=== PATIENT | male | born 1960 | race African-American/Black ===

== ENCOUNTER 2018-08-22 14:47 | Emergency (ER) | payer MEDICAID, OTHER ==
[~2018-08-22] VITALS: Ht 172.7 cm; Wt 55.3 kg
[~2018-08-22 14:47] MED LIST: ACET-73 PO; CYCL5TAB PO; FAMO20TA8 PO; FLUR30CA13 PO; GABA600T PO; HYDR25TA4 PO; PREG50CA PO; SERT50TA PO; TOPI25TA PO; [UNRECOGNIZED DRUG - OTHER] PO
--- NOTE | 2018-08-22 14:55 | NUR ---
PT SELF PRESENTS TO ER BED 12 C/O HAVING SUICIDAL THOUGHTS, PLAN ON RUNNING TO TRAFFIC STATES "I WAS RECENTLY ." THATS WHY HE IS SUICIDAL. DENIES ANY OTHER COMPLAINT. AWAITING MD MURRAY.
--- NOTE | 2018-08-22 15:13 | NUR ---
ALESSANDRA BELTRAN AT BEDSIDE FOR EVAL.
[2018-08-22 15:31] LABS: BASOPHILS # (AUTO) 0.2 /CMM (0.0-0.2); BASOPHILS % (AUTO) 2.7 % (0.0-2.0); EOSINOPHILS % (AUTO) 1.6 % (0.0-6.0); HEMATOCRIT 41 % (39-51); HEMOGLOBIN 14.2 g/dL (13.5-17.5); LYMPHOCYTES # (AUTO) 1.1 /CMM (0.8-4.8); LYMPHOCYTES % (AUTO) 16.7 % (20.0-44.0); MEAN CORPUSCULAR HGB CONC 35 g/dl (31.0-36.0); MEAN CORPUSCULAR VOLUME 98 fL (80-96); MONOCYTES # (AUTO) 0.4 /CMM (0.1-1.30); MONOCYTES % (AUTO) 5.9 % (2.0-12.0); NEUTROPHILS # (AUTO) 4.9 /CMM (1.8-8.9); NEUTROPHILS % (AUTO) 73.1 % (43.0-81.0); PLATELET COUNT (AUTO) 337 /CMM (150-450); RDW COEFFICIENT OF VARIATION 11.9 (11.5-15.0); RED BLOOD CELL COUNT(AUTO) 4.17 MIL/uL (4.5-6.0); WHITE BLOOD COUNT (AUTO) 6.7 K/uL (4.3-11.0)
[2018-08-22 15:35] LABS: CALCIUM, SERUM 9.3 mg/dL (8.5-10.1); CARBON DIOXIDE 31 mmol/L (21-32); CHLORIDE 106 mmol/L (98-107); GLUCOSE 98 mg/dL (74-106); POTASSIUM 4.5 mmol/L (3.5-5.1); SODIUM SERUM 142 mmol/L (136-145); UREA NITROGEN, BLOOD 15 mg/dL (7-18)
[2018-08-22 15:37] LABS: APPEARANCE,URINE Clear (CLEAR); BILIRUBIN,URINE Negative (NEGATIVE); BLOOD, URINE Trace-intact Ery/uL (NEGATIVE); COLOR,URINE Yellow (YELLOW); KETONES,URINE Negative (NEGATIVE); LEUKOCYTE ESTERASE ,URINE Negative (NEGATIVE); NITRITE, URINE Negative (NEGATIVE); PROTEIN,URINE Negative (NEGATIVE); UGLUCOSE Negative (NEGATIVE)
[2018-08-22 15:41] LABS: ACETAMINOPHEN 0 ug/ml (10-30); ALANINE AMINOTRANSFERASE 38 U/L (12-78); ALBUMIN 3.5 g/dL (3.4-5.0); ALCOHOL, BLOOD < 3 mg/dL (0-0); ALKALINE PHOSPHATASE 67 U/L (46-116); ASPARTATE AMINOTRANSFERASE 22 U/L (15-37); BILIRUBIN,DIRECT 0.1 mg/dL (0.0-0.2); BILIRUBIN,TOTAL 0.3 mg/dL (0.2-1.0); SALICYLATE 0.3 mg/dL (2.8-20.0); TOTAL PROTEIN, SERUM 7.2 g/dL (6.4-8.2)
[2018-08-22 15:44] LABS: BACTERIA,URINE None seen /HPF (None Seen); SQUAMOUS EPITHELIAL CELL,UR Few /HPF (None Seen); URINE AMORPHOUS PHOSPHATES Few /HPF (None Seen); WBC,URINE 0-2 /HPF (0-3)
--- NOTE | 2018-08-22 18:40 | NUR ---
JUN RN AT BEDSIDE FOR PSYCH EVAL.
--- NOTE | 2018-08-22 19:40 | NUR ---
WATCHING TV AT THIS TIME. DENIES ANY DISTRESS. INFORMED ABOUT PENDING ACCEPTANCE AT [facility].
--- NOTE | 2018-08-22 20:22 | NUR ---
REPORT GIVEN TO SLACKMAN AT [facility]. PT AWAITING TRANSPORT. NO S/S OF DISTRESS NOTED. RESP EVEN AND UNLABORED. DENIES ANY NEW OR WORSENING SX'S AT THIS TIME.
[2018-08-22 20:25] VITALS: BP 118/78
== END 2018-08-22 20:27 ==
LOC: ER 14:53
DX: R45.851 Suicidal ideations (principal); F31.9 Bipolar disorder, unspecified; I10 Essential (primary) hypertension; Z60.2 Problems related to living alone; F17.200 Nicotine dependence, unspecified, uncomplicated; Z88.8 Allergy status to other drugs, medicaments and biological substances
CPT/HCPCS: 36415; 80048; 80076; 80305; 80329; 81001; 85025; 99285; A4606; G0480 ×2; Z7610; 81000-TC

== ENCOUNTER 2018-10-18 16:59 | Emergency (ER) | payer MEDICAID ==
[~2018-10-18] VITALS: Ht 172.7 cm; Wt 68.0 kg
--- NOTE | 2018-10-18 16:59 | NUR ---
BIB SELF WITH PLANS TO JUMP IN FRONT OF TRAFFIC / MOVING CAR. TO ER BED 16, HOOKED TO MONITOR, AWAITING MD MURRAY.
--- NOTE | 2018-10-18 17:30 | NUR ---
DEVIN WILSON AT BEDSIDE
[2018-10-18 17:54] LABS: BASOPHILS # (AUTO) 0.1 /CMM (0.0-0.2); BASOPHILS % (AUTO) 0.6 % (0.0-2.0); EOSINOPHILS % (AUTO) 0.9 % (0.0-6.0); HEMATOCRIT 41 % (39-51); HEMOGLOBIN 13.7 g/dL (13.5-17.5); LYMPHOCYTES # (AUTO) 3.7 /CMM (0.8-4.8); MEAN CORPUSCULAR HGB CONC 34 g/dl (31.0-36.0); MEAN CORPUSCULAR VOLUME 100 fL (80-96); MONOCYTES # (AUTO) 0.8 /CMM (0.1-1.30); MONOCYTES % (AUTO) 6.5 % (2.0-12.0); NEUTROPHILS # (AUTO) 7.6 /CMM (1.8-8.9); PLATELET COUNT (AUTO) 268 /CMM (150-450); RED BLOOD CELL COUNT(AUTO) 4.06 MIL/uL (4.5-6.0); WHITE BLOOD COUNT (AUTO) 12.2 K/uL (4.3-11.0)
[2018-10-18 18:08] LABS: CARBON DIOXIDE 31 mmol/L (21-32); CHLORIDE 100 mmol/L (98-107); CREATININE 1.2 mg/dL (0.6-1.3); GLUCOSE 147 mg/dL (74-106); POTASSIUM 3.4 mmol/L (3.5-5.1); SODIUM SERUM 138 mmol/L (136-145); UREA NITROGEN, BLOOD 29 mg/dL (7-18)
[2018-10-18 18:12] LABS: ALANINE AMINOTRANSFERASE 39 U/L (12-78); ALBUMIN 3.5 g/dL (3.4-5.0); ALKALINE PHOSPHATASE 62 U/L (46-116); ASPARTATE AMINOTRANSFERASE 19 U/L (15-37); BILIRUBIN,DIRECT 0.1 mg/dL (0.0-0.2); BILIRUBIN,TOTAL 0.4 mg/dL (0.2-1.0); TOTAL PROTEIN, SERUM 7.3 g/dL (6.4-8.2)
[2018-10-18 18:13] LABS: ACETAMINOPHEN < 2 ug/ml (10-30); ALCOHOL, BLOOD < 3 mg/dL (0-0); SALICYLATE 2.1 mg/dL (2.8-20.0)
[2018-10-18 18:16] LABS: CALCIUM, SERUM 8.9 mg/dL (8.5-10.1)
--- NOTE | 2018-10-18 18:22 | NUR ---
URINE SAMPLE SENT TO LAB
[2018-10-18 18:37] LABS: APPEARANCE,URINE Clear (CLEAR); BILIRUBIN,URINE Negative (NEGATIVE); BLOOD, URINE Small Ery/uL (NEGATIVE); COLOR,URINE Yellow (YELLOW); KETONES,URINE Negative (NEGATIVE); LEUKOCYTE ESTERASE ,URINE Small (NEGATIVE); NITRITE, URINE Negative (NEGATIVE); PH,URINE 5.5 (5.0-8.0); PROTEIN,URINE Negative (NEGATIVE); UGLUCOSE Negative (NEGATIVE); UROBILINOGEN,URINE 0.2 EU/dL (0.2)
[2018-10-18 18:58] LABS: BACTERIA,URINE 1+ /HPF (None Seen); SQUAMOUS EPITHELIAL CELL,UR Few /HPF (None Seen)
--- NOTE | 2018-10-18 19:13 | NUR ---
CALLED [employer] COMPONENT ASSEMBLER.
[2018-10-18] MEDS ORDERED: CEPHALEXIN MONOHYDRATE 500 MG CAPSULE PO ONE ×2 (19:28→19:30)
--- NOTE | 2018-10-18 19:30 | NUR ---
REPORT GIVEN TO FERNY RN FOR LB
--- NOTE | 2018-10-18 19:33 | NUR ---
REC'D ENDORSEMENT FROM [facility] JEFFERY FOR LB
--- NOTE | 2018-10-18 19:50 | NUR ---
CHECKED IN ON PT, STILL +SI. PROVIDED BLANKET FOR COMFORT. NO OTHER COMPLAINTS AT THIS TIME.
--- NOTE | 2018-10-18 19:57 | NUR ---
PROVIDED SANDWICH AND JUICE. OK ISHMAEL PA
--- NOTE | 2018-10-18 21:10 | NUR ---
ASSISTED PT TO USE TELEVISION. HE IS COMFORTABLE AND VSS
--- NOTE | 2018-10-18 22:47 | NUR ---
REPORT GIVEN TO RODRIGUE AT [facility]. TRANSPORT ETA [phone], TRIP #[id number]
--- NOTE | 2018-10-18 22:57 | NUR ---
PT RESTING COMFORTABLY WATCHING TV AND PLAYING ON PHONE. NO COMPLAINTS AT THIS TIME
--- NOTE | 2018-10-18 23:58 | NUR ---
REPORT GIVEN TO ABY ECHEVARRIA, LELA FOR TRANSPORT.
[2018-10-19 00:51] VITALS: BP 112/84
== END 2018-10-18 23:58 ==
LOC: ER 17:02
DX: R45.851 Suicidal ideations (principal); N39.0 Urinary tract infection, site not specified; F31.9 Bipolar disorder, unspecified; M79.7 Fibromyalgia; F17.200 Nicotine dependence, unspecified, uncomplicated; Z60.2 Problems related to living alone; Z88.8 Allergy status to other drugs, medicaments and biological substances
CPT/HCPCS: 36415; 80048; 80076; 80305; 80329; 81001; 85025; 87086; 99285; A4606; G0480 ×2; Z7610; 81000-TC

== ENCOUNTER 2018-10-29 00:09 | Emergency (ER) | payer MEDICAID ==
[~2018-10-29] VITALS: Ht 172.7 cm; Wt 86.2 kg
[2018-10-29 00:52] LABS: BASOPHILS # (AUTO) 0.1 /CMM (0.0-0.2); BASOPHILS % (AUTO) 1.2 % (0.0-2.0); EOSINOPHILS % (AUTO) 1.2 % (0.0-6.0); HEMATOCRIT 41 % (39-51); HEMOGLOBIN 14.1 g/dL (13.5-17.5); LYMPHOCYTES # (AUTO) 3.1 /CMM (0.8-4.8); LYMPHOCYTES % (AUTO) 31.4 % (20.0-44.0); MEAN CORPUSCULAR HGB CONC 34 g/dl (31.0-36.0); MEAN CORPUSCULAR VOLUME 99 fL (80-96); MONOCYTES # (AUTO) 0.9 /CMM (0.1-1.30); MONOCYTES % (AUTO) 8.7 % (2.0-12.0); NEUTROPHILS # (AUTO) 5.6 /CMM (1.8-8.9); NEUTROPHILS % (AUTO) 57.5 % (43.0-81.0); PLATELET COUNT (AUTO) 239 /CMM (150-450); RED BLOOD CELL COUNT(AUTO) 4.17 MIL/uL (4.5-6.0); WHITE BLOOD COUNT (AUTO) 9.8 K/uL (4.3-11.0)
--- NOTE | 2018-10-29 01:00 | NUR ---
PT BIBSELF FOR SI. PT DENIES HI, AUDITORY/VISUAL HALLUCINATIONS. PT IS AAOX4. RESPIRATIONS EVEN AND UNLABORED. VITAL SIGNS STABLE. WILL CONTINUE TO MONITOR
[2018-10-29 01:01] LABS: CARBON DIOXIDE 28 mmol/L (21-32); CHLORIDE 109 mmol/L (98-107); CREATININE 1.2 mg/dL (0.6-1.3); GLUCOSE 96 mg/dL (74-106); POTASSIUM 3.9 mmol/L (3.5-5.1); SODIUM SERUM 145 mmol/L (136-145); UREA NITROGEN, BLOOD 22 mg/dL (7-18)
[2018-10-29 01:14] LABS: ACETAMINOPHEN 0 ug/ml (10-30); ALANINE AMINOTRANSFERASE 31 U/L (12-78); ALBUMIN 4.2 g/dL (3.4-5.0); ALCOHOL, BLOOD < 3 mg/dL (0-0); ALKALINE PHOSPHATASE 64 U/L (46-116); ASPARTATE AMINOTRANSFERASE 16 U/L (15-37); BILIRUBIN,DIRECT 0.1 mg/dL (0.0-0.2); BILIRUBIN,TOTAL 0.6 mg/dL (0.2-1.0); SALICYLATE 2.5 mg/dL (2.8-20.0)
--- NOTE | 2018-10-29 02:30 | NUR ---
PT RESTING COMFORTABLY IN BED. VSS. WILL CONTINUE TO MONITOR
--- NOTE | 2018-10-29 02:36 | NUR ---
URINE COLLECTED AND SENT TO LAB
[2018-10-29 02:43] LABS: APPEARANCE,URINE CLEAR (CLEAR); BILIRUBIN,URINE NEGATIVE (NEGATIVE); BLOOD, URINE 1+ Ery/uL (NEGATIVE); COLOR,URINE YELLOW (YELLOW); KETONES,URINE TRACE (NEGATIVE); LEUKOCYTE ESTERASE ,URINE TRACE (NEGATIVE); NITRITE, URINE NEGATIVE (NEGATIVE); PH,URINE 6.5 (5.0-8.0); PROTEIN,URINE NEGATIVE (NEGATIVE); UGLUCOSE NEGATIVE (NEGATIVE); UROBILINOGEN,URINE 0.2 EU/dL (0.2)
[2018-10-29 02:53] LABS: WBC,URINE 0-2 /HPF (0-3)
[2018-10-29 02:54] LABS: BACTERIA,URINE Few /HPF (None Seen); MUCUS,URINE Few /LPF (None Seen); SQUAMOUS EPITHELIAL CELL,UR Few /HPF (None Seen); URINE AMORPHOUS URATE Few /HPF (None Seen)
--- NOTE | 2018-10-29 03:38 | NUR ---
accpeted to swetha LINDQUIST. NUMBER FOR REPORT: [phone] [phone]
--- NOTE | 2018-10-29 03:42 | NUR ---
GAVE REPORT TO [facility]EN [facility] FOR LB
--- NOTE | 2018-10-29 04:19 | NUR ---
PT RESTING COMFORTABLY IN BED. VSS. WILL CONTINUE TO MONITOR
[2018-10-29 05:01] VITALS: BP 132/84
--- NOTE | 2018-10-29 05:01 | NUR ---
GAVE REPORT TO BISHOP FOR LB
== END 2018-10-29 05:03 ==
LOC: ER 00:15
DX: R45.851 Suicidal ideations (principal); F32.9 Major depressive disorder, single episode, unspecified; M79.7 Fibromyalgia; M19.90 Unspecified osteoarthritis, unspecified site; G62.9 Polyneuropathy, unspecified; F17.200 Nicotine dependence, unspecified, uncomplicated; Z88.8 Allergy status to other drugs, medicaments and biological substances; Z60.2 Problems related to living alone; Z79.899 Other long term (current) drug therapy
CPT/HCPCS: 36415; 80048-TC; 80076-TC; 80305; 81000-TC; 85025-TC; A4606; G0480; Z7610

== ENCOUNTER 2018-11-05 13:24 | Emergency (ER) | END 2018-11-06 03:28 | DX: R07.89 Other chest pain (principal); R45.851 Suicidal ideations; F14.90 Cocaine use, unspecified, uncomplicated; G62.9 Polyneuropathy, unspecified; F31.9 Bipolar disorder, unspecified; M79.7 Fibromyalgia; F17.200 Nicotine dependence, unspecified, uncomplicated; F19.10 Other psychoactive substance abuse, uncomplicated; Z60.2 Problems related to living alone; Z88.9 Allergy status to unspecified drugs, medicaments and biological substances ==

== ENCOUNTER 2018-11-17 08:22 | Emergency (ER) | payer MEDICAID ==
[~2018-11-17] VITALS: Ht 172.7 cm; Wt 63.5 kg
--- NOTE | 2018-11-17 09:20 | NUR ---
PT IS HERE C/O THROAT PAIN X 1 DAY. DENIES CP, SOB, DIZZINESS, NAD NOTED @ THIS TIME.
[2018-11-17 09:43] LABS: BASOPHILS # (AUTO) 0.1 /CMM (0.0-0.2); HEMATOCRIT 44 % (39-51); LYMPHOCYTES # (AUTO) 1.4 /CMM (0.8-4.8); LYMPHOCYTES % (AUTO) 20.2 % (20.0-44.0); MEAN CORPUSCULAR HGB CONC 34 g/dl (31.0-36.0); MEAN CORPUSCULAR VOLUME 101 fL (80-96); MONOCYTES % (AUTO) 15.3 % (2.0-12.0); NEUTROPHILS # (AUTO) 4.1 /CMM (1.8-8.9); NEUTROPHILS % (AUTO) 61.5 % (43.0-81.0); PLATELET COUNT (AUTO) 198 /CMM (150-450); RED BLOOD CELL COUNT(AUTO) 4.38 MIL/uL (4.5-6.0); WHITE BLOOD COUNT (AUTO) 6.7 K/uL (4.3-11.0)
[2018-11-17 09:51] LABS: CALCIUM, SERUM 9.3 mg/dL (8.5-10.1); CARBON DIOXIDE 31 mmol/L (21-32); CHLORIDE 103 mmol/L (98-107); GLUCOSE 100 mg/dL (74-106); POTASSIUM 3.9 mmol/L (3.5-5.1); SODIUM SERUM 141 mmol/L (136-145); UREA NITROGEN, BLOOD 22 mg/dL (7-18)
[2018-11-17 09:57] LABS: ACETAMINOPHEN 0 ug/ml (10-30); ALANINE AMINOTRANSFERASE 34 U/L (12-78); ALBUMIN 4.1 g/dL (3.4-5.0); ALCOHOL, BLOOD < 3 mg/dL (0-0); ALKALINE PHOSPHATASE 65 U/L (46-116); ASPARTATE AMINOTRANSFERASE 20 U/L (15-37); BILIRUBIN,DIRECT 0.1 mg/dL (0.0-0.2); BILIRUBIN,TOTAL 0.6 mg/dL (0.2-1.0); SALICYLATE 2.6 mg/dL (2.8-20.0); TOTAL PROTEIN, SERUM 8.1 g/dL (6.4-8.2)
--- NOTE | 2018-11-17 11:00 | NUR ---
Patient is resting comfortably in bed with eyes closed. Easily aroused. VSS
--- NOTE | 2018-11-17 13:00 | NUR ---
Patient is resting comfortably in bed with eyes closed. Easily aroused. VSS
--- NOTE | 2018-11-17 14:05 | NUR ---
CALLED [employer] SONJA- LEFT VOICEMAIL
--- NOTE | 2018-11-17 14:54 | NUR ---
SONJA STATES ETA 30 MIN
--- NOTE | 2018-11-17 15:00 | NUR ---
Patient is resting comfortably in bed with eyes closed. Easily aroused. VSS
--- NOTE | 2018-11-17 17:30 | NUR ---
Patient is resting comfortably in bed with eyes closed. Easily aroused. VSS
[2018-11-17 19:30] LABS: APPEARANCE,URINE Clear (CLEAR); BILIRUBIN,URINE SMALL (NEGATIVE); BLOOD, URINE Small Ery/uL (NEGATIVE); COLOR,URINE Yellow (YELLOW); KETONES,URINE 15 (NEGATIVE); LEUKOCYTE ESTERASE ,URINE Trace (NEGATIVE); NITRITE, URINE Negative (NEGATIVE); PROTEIN,URINE 30 mg/dl (NEGATIVE); UGLUCOSE Negative (NEGATIVE)
[2018-11-17 19:36] LABS: BACTERIA,URINE Few /HPF (None Seen); SQUAMOUS EPITHELIAL CELL,UR Few /HPF (None Seen)
--- NOTE | 2018-11-17 19:42 | NUR ---
REPORT GIVEN TO WALTER CALDERA FOR CONT OF CARE.
--- NOTE | 2018-11-17 22:00 | NUR ---
Patient is resting comfortably in bed with eyes closed. Easily aroused. VSS
--- NOTE | 2018-11-18 00:41 | NUR ---
Patient is resting comfortably in bed with eyes closed. Easily aroused. VSS
--- NOTE | 2018-11-18 06:06 | NUR ---
Patient is resting comfortably in bed with eyes closed. Easily aroused. VSS. Awaiting placement from mental health facility.
--- NOTE | 2018-11-18 07:37 | NUR ---
PT STABLE RESPIRATION ENEN PENDING VOLUNTARY PLACEMENT AT [facility] PT HOMELESS WITH SI PLAN TO OVERDOSE ON [place]. [facility] CALLED NO BEDS AVAILABLE FACILITY WILL CALL [facility] 10PM IF BED VACANCY BECOMES AVALIABLE.
--- NOTE | 2018-11-18 08:03 | NUR ---
FOOD TRAY CALLED FROM [facility]
--- NOTE | 2018-11-18 08:20 | NUR ---
DENIS CALLED FOR EVAL/PLACEMENT
--- NOTE | 2018-11-18 09:56 | NUR ---
FAXED CHART TO [facility]
--- NOTE | 2018-11-18 11:03 | NUR ---
CALLING [facility] FOR BED AVAILABLITY
--- NOTE | 2018-11-18 11:07 | NUR ---
REFAXING CHART OVER
--- NOTE | 2018-11-18 12:07 | NUR ---
Social service consult was requested by ER for homelessness. Pt is a 58-year-old male who was admitted to [facility] by presenting self to ER with complaints of throat pain. Pt has been seen by Crisis Team and is awaiting possible placement at [facility]. SW spoke with Charge nurse Armando who stated that no beds are yet available. Pt has been deemed not suicidal however manipulative and looking for a place to stay per crisis team eval. Pt has also been provided with community resources by crisis team. Prior to discharge social work will provide homeless waiver depending on pts possible discharge location. SW is available, if needed.
--- NOTE | 2018-11-18 14:16 | NUR ---
PT GIVEN MEAL TRAY PENDING DISPOSITION
--- NOTE | 2018-11-18 14:30 | NUR ---
PT IS ACCEPTED AT [facility]. ACCEPTING MD NASH \BED NUMBER TO BE GIVEN DURING REPORT. [phone] SCHEDULE TRANSPORT BETWEEN [phone].
--- NOTE | 2018-11-18 14:39 | NUR ---
PT ACCEPTED AT [facility] RN REPORT GIVEN TO MARRY BAILEY [phone]
--- NOTE | 2018-11-18 14:41 | NUR ---
ROOM NUMBER [id number]
--- NOTE | 2018-11-18 14:43 | NUR ---
CALLED [facility] TRIP# [id number] ETA [phone]
--- NOTE | 2018-11-18 15:27 | NUR ---
TRANSPORT DELAYED TO 1700
[2018-11-18 17:00] VITALS: BP 110/74
--- NOTE | 2018-11-18 17:01 | NUR ---
PT DISCHARGED TO [facility] RIG# [id number] FOR TRANSPORT TO [facility] ALL BELONGINGS GIVEN PT VSSS.
== END 2018-11-18 17:06 ==
LOC: ER 08:24
DX: R45.851 Suicidal ideations (principal); G62.9 Polyneuropathy, unspecified; M79.7 Fibromyalgia; F17.200 Nicotine dependence, unspecified, uncomplicated; F14.10 Cocaine abuse, uncomplicated; F32.9 Major depressive disorder, single episode, unspecified; Z60.2 Problems related to living alone; Z59.0 Homelessness; Z88.4 Allergy status to anesthetic agent
CPT/HCPCS: 36415; 80048; 80076; 80305; 80329; 81001; 85025; 99285; A4606; G0480 ×2; Z7610; 81000-TC

== ENCOUNTER 2019-01-29 20:36 | Emergency (ER) | payer MEDICAID ==
[~2019-01-29] VITALS: Ht 172.7 cm; Wt 57.0 kg
[2019-01-29 22:04] VITALS: BP 152/89
--- NOTE | 2019-01-29 22:05 | NUR ---
PT BIB SELF FOR S/I, PLANS TO RUN INTO TRAFFIC; PT AAOX4, PT AMB WITH STEADY GAIT WALKED FROM TRIAGE TO BED, SI PRECAUTIONS STARTED FOR SAFETY, PT IN BED 13, PENDING MD MURRAY
[2019-01-29 22:23] LABS: BASOPHILS % (AUTO) 0.7 % (0.0-2.0); EOSINOPHILS % (AUTO) 2.8 % (0.0-6.0); HEMATOCRIT 44 % (39-51); HEMOGLOBIN 14.8 g/dL (13.5-17.5); LYMPHOCYTES # (AUTO) 1.5 /CMM (0.8-4.8); LYMPHOCYTES % (AUTO) 28.2 % (20.0-44.0); MEAN CORPUSCULAR HGB CONC 34 g/dl (31.0-36.0); MEAN CORPUSCULAR VOLUME 100 fL (80-96); MONOCYTES # (AUTO) 0.5 /CMM (0.1-1.30); MONOCYTES % (AUTO) 10.5 % (2.0-12.0); NEUTROPHILS % (AUTO) 57.8 % (43.0-81.0); PLATELET COUNT (AUTO) 246 /CMM (150-450); RED BLOOD CELL COUNT(AUTO) 4.45 MIL/uL (4.5-6.0); WHITE BLOOD COUNT (AUTO) 5.2 K/uL (4.3-11.0)
[2019-01-29 22:34] LABS: CALCIUM, SERUM 9.6 mg/dL (8.5-10.1); CARBON DIOXIDE 32 mmol/L (21-32); CHLORIDE 106 mmol/L (98-107); CREATININE 0.9 mg/dL (0.6-1.3); GLUCOSE 73 mg/dL (74-106); POTASSIUM 4.1 mmol/L (3.5-5.1); SODIUM SERUM 143 mmol/L (136-145); UREA NITROGEN, BLOOD 16 mg/dL (7-18)
[2019-01-29 22:41] LABS: ALANINE AMINOTRANSFERASE 33 U/L (12-78); ALCOHOL, BLOOD < 3 mg/dL (0-0); ALKALINE PHOSPHATASE 65 U/L (46-116); ASPARTATE AMINOTRANSFERASE 23 U/L (15-37); BILIRUBIN,DIRECT 0.1 mg/dL (0.0-0.2); BILIRUBIN,TOTAL 0.3 mg/dL (0.2-1.0); TOTAL PROTEIN, SERUM 7.5 g/dL (6.4-8.2)
[2019-01-29 22:42] LABS: ACETAMINOPHEN < 10 ug/ml (10-30); SALICYLATE 2.3 mg/dL (2.8-20.0)
[2019-01-29 23:33] LABS: APPEARANCE,URINE Slightly Cloudy (CLEAR); BILIRUBIN,URINE SMALL (NEGATIVE); BLOOD, URINE Moderate Ery/uL (NEGATIVE); COLOR,URINE Yellow (YELLOW); KETONES,URINE Trace (NEGATIVE); LEUKOCYTE ESTERASE ,URINE Small (NEGATIVE); NITRITE, URINE Negative (NEGATIVE); PROTEIN,URINE 30 mg/dl (NEGATIVE); UGLUCOSE Negative (NEGATIVE)
[2019-01-29 23:52] LABS: BACTERIA,URINE None seen /HPF (None Seen); SQUAMOUS EPITHELIAL CELL,UR Few /HPF (None Seen)
--- NOTE | 2019-01-30 00:25 | NUR ---
SEEN BY WILLIAM TENORIO; PENDING PLACEMENT. PT IS AMBULATORY WITH WALKER. PT IS CLEARED BY HEALTHCARE BUSINESS ANALYST, PT WILL WAIT IN THE WAITING ROOM, PT IS ON A VOLUNTARY BASIS FOR PSYCH PLACEMENT.
--- NOTE | 2019-01-30 06:32 | NUR ---
CALLED [facility]. UNABLE TO ACCEPT PATIENT.
--- NOTE | 2019-01-30 10:00 | NUR ---
HANDS PARTER Kenn here to see pt. Pt opted to leave by himself - eloped prior to signing discharge instructions. Appropriate clothed able to navigate community and resources. NO obvious distress
== END 2019-01-30 10:00 | disposition left against medical advice (07) ==
LOC: ER 20:39
DX: F31.9 Bipolar disorder, unspecified (principal); R45.851 Suicidal ideations; F20.9 Schizophrenia, unspecified; G62.9 Polyneuropathy, unspecified; M79.7 Fibromyalgia; F17.200 Nicotine dependence, unspecified, uncomplicated; F12.10 Cannabis abuse, uncomplicated; F29 Unspecified psychosis not due to a substance or known physiological condition; Z60.2 Problems related to living alone
CPT/HCPCS: 36415; 80048; 80076; 80305; 80307; 80329; 81001; 85025; 99285; G0480; 81000-TC

== ENCOUNTER 2019-03-28 20:24 | Emergency (ER) ==
[~2019-03-28] VITALS: Ht 172.7 cm; Wt 59.0 kg
--- NOTE | 2019-03-28 20:52 | NUR ---
+SI, +PLAN "RUN INTO TRAFFIC", -HI, -AUDITORY VOICES. PT IS AMBULATORY WITH WALKER. VSS AND RR EVEN AND UNLABORED ON RA. HE IS CALM AND COOPERATIVE. SUICIDE PRECAUTIONS IMPLEMENTED AND READY FOR EVAL.
[2019-03-28 21:00] LABS: BASOPHILS # (AUTO) 0.1 /CMM (0.0-0.2); EOSINOPHILS % (AUTO) 1.8 % (0.0-6.0); HEMATOCRIT 40 % (39-51); HEMOGLOBIN 13.4 g/dL (13.5-17.5); LYMPHOCYTES # (AUTO) 1.7 /CMM (0.8-4.8); MEAN CORPUSCULAR HGB CONC 34 g/dl (31.0-36.0); MEAN CORPUSCULAR VOLUME 101 fL (80-96); MONOCYTES # (AUTO) 0.8 /CMM (0.1-1.30); NEUTROPHILS # (AUTO) 4.6 /CMM (1.8-8.9); NEUTROPHILS % (AUTO) 63.2 % (43.0-81.0); PLATELET COUNT (AUTO) 236 /CMM (150-450); RED BLOOD CELL COUNT(AUTO) 3.95 MIL/uL (4.5-6.0); WHITE BLOOD COUNT (AUTO) 7.3 K/uL (4.3-11.0)
[2019-03-28 21:09] LABS: CALCIUM, SERUM 9.2 mg/dL (8.5-10.1); CARBON DIOXIDE 31 mmol/L (21-32); CHLORIDE 105 mmol/L (98-107); CREATININE 0.9 mg/dL (0.6-1.3); GLUCOSE 103 mg/dL (74-106); POTASSIUM 4.4 mmol/L (3.5-5.1); SODIUM SERUM 141 mmol/L (136-145); UREA NITROGEN, BLOOD 24 mg/dL (7-18)
[2019-03-28 21:11] LABS: ALCOHOL, BLOOD < 3 mg/dL (0-0)
--- NOTE | 2019-03-28 22:47 | NUR ---
PT GIVEN FOOD
--- NOTE | 2019-03-28 22:52 | NUR ---
TRANSFER INFO: PT GOING BLS TO [facility] ACCEPTING DR MARTINEZ, RN FOR REPORT [phone], [facility] ETA 0015 TRIP #[id number]
--- NOTE | 2019-03-28 23:26 | NUR ---
RESTING COMFORTABLY IN BED. NO COMPLAINTS AT THIS TIME. WILL CONT TO MONITOR.
[2019-03-28 23:29] VITALS: BP 121/82
--- NOTE | 2019-03-28 23:29 | NUR ---
Yara polanco in [facility] - 03/29/19 at 0019 by KEELY REPORT GIVEN TO WALTER HUSAIN AT [facility].
--- NOTE | 2019-03-28 23:29 | NUR ---
REPORT GIVEN TO WALTER HUSAIN AT [facility].
--- NOTE | 2019-03-28 23:37 | NUR ---
ASSUMED CARE OF PT FOR LB. PT APPEARS TO BE RESTING COMFORTABLY WITH NO S/S OF PAIN OR DISTRESS NOTED. PT IS AWAITING TRANSPORT TO [facility].
--- NOTE | 2019-03-28 23:41 | NUR ---
PT WOULD LIKE TO BE CALLED HEMANT NOT TAINA.
--- NOTE | 2019-03-28 23:43 | NUR ---
[facility] TO [facility] G[facility]. CHARGE NURSE UNAVAILABLE AT THIS MOMENT AND THEY WILL CALL BACK
--- NOTE | 2019-03-28 23:49 | NUR ---
REPORT GIVEN TO WALTER HUSAIN AT [facility].
--- NOTE | 2019-03-29 00:31 | NUR ---
EULALIA MUSIC TEACHER ARRIVED AND REPORT WAS GIVEN. COPY OF ALL LABS, IMAGING, REPORTS, ETC GIVEN. PT'S VVS. PT TRANSFERED OUT.
== END 2019-03-29 00:33 ==
LOC: ER 20:27
DX: R45.851 Suicidal ideations (principal); G62.9 Polyneuropathy, unspecified; M19.90 Unspecified osteoarthritis, unspecified site; M79.7 Fibromyalgia; F17.200 Nicotine dependence, unspecified, uncomplicated; Z88.8 Allergy status to other drugs, medicaments and biological substances; Z60.2 Problems related to living alone; Z79.899 Other long term (current) drug therapy
CPT/HCPCS: 36415; 80048-TC; 80305; 85025-TC; G0480

== ENCOUNTER 2019-04-23 13:45 | Emergency (ER) | payer MEDICAID ==
[~2019-04-23] VITALS: Ht 172.7 cm; Wt 56.7 kg
[2019-04-23 14:15] LABS: BASOPHILS # (AUTO) 0.1 /CMM (0.0-0.2); BASOPHILS % (AUTO) 1.2 % (0.0-2.0); EOSINOPHILS % (AUTO) 1.9 % (0.0-6.0); HEMATOCRIT 42 % (39-51); HEMOGLOBIN 14.2 g/dL (13.5-17.5); LYMPHOCYTES # (AUTO) 1.1 /CMM (0.8-4.8); LYMPHOCYTES % (AUTO) 23.5 % (20.0-44.0); MEAN CORPUSCULAR HGB CONC 34 g/dl (31.0-36.0); MEAN CORPUSCULAR VOLUME 101 fL (80-96); MONOCYTES # (AUTO) 0.5 /CMM (0.1-1.30); MONOCYTES % (AUTO) 9.9 % (2.0-12.0); NEUTROPHILS % (AUTO) 63.5 % (43.0-81.0); PLATELET COUNT (AUTO) 202 /CMM (150-450); RED BLOOD CELL COUNT(AUTO) 4.19 MIL/uL (4.5-6.0); WHITE BLOOD COUNT (AUTO) 4.7 K/uL (4.3-11.0)
[2019-04-23 14:22] LABS: CARBON DIOXIDE 28 mmol/L (21-32); CHLORIDE 106 mmol/L (98-107); CREATININE 0.8 mg/dL (0.6-1.3); GLUCOSE 99 mg/dL (74-106); SODIUM SERUM 141 mmol/L (136-145); UREA NITROGEN, BLOOD 12 mg/dL (7-18)
[2019-04-23 14:34] LABS: APPEARANCE,URINE Clear (CLEAR); BILIRUBIN,URINE Negative (NEGATIVE); BLOOD, URINE Small Ery/uL (NEGATIVE); COLOR,URINE Yellow (YELLOW); KETONES,URINE Negative (NEGATIVE); LEUKOCYTE ESTERASE ,URINE Negative (NEGATIVE); NITRITE, URINE Negative (NEGATIVE); PH,URINE 5.5 (5.0-8.0); PROTEIN,URINE Negative (NEGATIVE); UGLUCOSE Negative (NEGATIVE); UROBILINOGEN,URINE 0.2 EU/dL (0.2)
[2019-04-23 14:36] LABS: ALANINE AMINOTRANSFERASE 26 U/L (12-78); ALBUMIN 3.5 g/dL (3.4-5.0); ALCOHOL, BLOOD < 3 mg/dL (0-0); ALKALINE PHOSPHATASE 62 U/L (46-116); ASPARTATE AMINOTRANSFERASE 15 U/L (15-37); BILIRUBIN,DIRECT 0.1 mg/dL (0.0-0.2); BILIRUBIN,TOTAL 0.3 mg/dL (0.2-1.0); TOTAL PROTEIN, SERUM 6.9 g/dL (6.4-8.2)
[2019-04-23 14:37] LABS: ACETAMINOPHEN < 2 ug/ml (10-30); SALICYLATE 1.7 mg/dL (2.8-20.0)
[2019-04-23 14:43] LABS: BACTERIA,URINE Rare /HPF (None Seen); SQUAMOUS EPITHELIAL CELL,UR Few /HPF (None Seen); WBC,URINE 0-2 /HPF (0-3)
--- NOTE | 2019-04-23 16:27 | NUR ---
patient resting comfortably. no acute distress noted
--- NOTE | 2019-04-23 17:16 | NUR ---
REPORT GIVEN TO OLGA WATSON AT [facility]. PT AWAITING TRANSPORT.
--- NOTE | 2019-04-23 17:20 | NUR ---
CALLED [facility] FOR BLS TRANSFER. ETA 90 MIN TRIP#[id number]
--- NOTE | 2019-04-23 17:59 | NUR ---
CANCELLED BLS TRANSPORT DUE TO [facility] NOT BEING ABLE TO ACCEPT HIM.
--- NOTE | 2019-04-23 18:28 | NUR ---
CALLED MANN GRANT AT [facility] TO FOLLOW UP ON THE PT'S TRANSFER. THE MANN GRANT INFORMED ME THAT SHE WOULD CALL BACK WHEN SHE HAD MORE INFORMATION.
--- NOTE | 2019-04-23 19:11 | NUR ---
patient resting comfortably. no complaints. no distress noted. care endorsed to rn for tanja
--- NOTE | 2019-04-23 19:47 | NUR ---
Pt resting in bed, NAD noted. Will continue to monitor.
--- NOTE | 2019-04-23 20:37 | NUR ---
SPOKE TO MANN GRANT AT [facility] AND WAS INFORMED THAT HE WOULD CALL ME BACK WITH INFORMATION ABOUT PLACEMENT
--- NOTE | 2019-04-23 22:01 | NUR ---
PT ACCEPTED TO [facility] BY DR STUART. # FOR REPORT [phone]
--- NOTE | 2019-04-23 22:07 | NUR ---
CALLED [facility] FOR BLS TRANSPORT. ETA 90 MIN. TRIP # [phone]
--- NOTE | 2019-04-23 22:53 | NUR ---
REPORT GIVEN TO LISA WATSON FOR LB.
--- NOTE | 2019-04-24 00:51 | NUR ---
CALLED [facility] FOR UPDATED ETA WAS GIVEN 10 MIN ETA
[2019-04-24 01:46] VITALS: BP 105/77
== END 2019-04-24 01:15 ==
LOC: ER 13:46
DX: R45.851 Suicidal ideations (principal); F31.9 Bipolar disorder, unspecified; G62.9 Polyneuropathy, unspecified; M79.7 Fibromyalgia; F17.200 Nicotine dependence, unspecified, uncomplicated; F14.10 Cocaine abuse, uncomplicated; Z60.2 Problems related to living alone; Z88.6 Allergy status to analgesic agent
CPT/HCPCS: 36415; 80048-TC; 80076-TC; 80305; 81000-TC; 85025-TC; G0480

== ENCOUNTER 2019-05-22 18:35 | Emergency (ER) | payer MEDICAID ==
[~2019-05-22] VITALS: Ht 172.7 cm; Wt 54.9 kg
--- NOTE | 2019-05-22 19:15 | NUR ---
PRESENTED TO THE ER W/ C/O WORSENING BACK/ NECK PAIN. PMH OF "NECK SX DAYS AGO"
[2019-05-22] MEDS ORDERED: KETOROLAC TROMETHAMINE INJ 60 MG/2 ML VIAL IM ONE (19:25)
[2019-05-22] MEDS: KETOROLAC TROMETHAMINE INJ 60 MG/2 ML VIAL IM ONE (19:35)
[2019-05-22] MEDS: IV NS 0.9% 1,000 ML BAG IV ONE (19:35)
--- NOTE | 2019-05-22 20:45 | NUR ---
Patient is resting comfortably in bed with eyes closed. Easily aroused. VSS
[2019-05-22 22:26] VITALS: BP 93/59
--- NOTE | 2019-05-22 22:44 | NUR ---
RPatient is resting comfortably in bed with eyes closed. Easily aroused. VSS
--- NOTE | 2019-05-22 23:30 | NUR ---
PT WAS D/C'D IN STABLE CONDITION. PT WAS PROVIDED E/ A WALKER ASSISTIVE DEVICE FOR AMBULATION. AFTER CARE INSTRUCTIONS AND RX GIVEN TO THE PT. PT REFUSED TO SIGN TH E D/C PAPERS ,AND [facility] REFERAL. PT HAD A PROPER CLOTHING ON UPON D/C AND WAS PROVIDED W/ A TO GO SNACKS. PER PT HE WILL ARRANGE HIS OWN TRANSPO.
== END 2019-05-22 23:30 | disposition home or self-care (01) ==
LOC: ER 18:38
DX: G89.18 Other acute postprocedural pain (principal); G62.9 Polyneuropathy, unspecified; M19.90 Unspecified osteoarthritis, unspecified site; M79.7 Fibromyalgia; F17.200 Nicotine dependence, unspecified, uncomplicated; Z88.8 Allergy status to other drugs, medicaments and biological substances; Z60.2 Problems related to living alone; Z79.899 Other long term (current) drug therapy
CPT/HCPCS: 72040; 96372; 99283; J1885; J7030

== ENCOUNTER 2020-08-27 21:47 | Emergency (ER) | payer MEDICAID ==
[~2020-08-27] VITALS: Ht 172.7 cm; Wt 61.2 kg
--- NOTE | 2020-08-27 21:59 | NUR ---
BIBSEKALLI C/O SI TO JUMP IN FRONT OF TRAFFIC. -HI,. PT PLACED IN BED 15 ON MONITOR AND PULSE OX. PT PLACED IN GOWN, BELONGINGS PLACED IN LOCKER. SITTER AT BEDSIDE,. AWAITING FOR MD FOR EVAL. NO ACUTE DISTRESS NOTED. VSS.
--- NOTE | 2020-08-27 22:00 | NUR ---
AWAITING FOR PT TO PROVIDE URINE SAMPLE
--- NOTE | 2020-08-27 22:10 | NUR ---
BOATBUILDER APPRENTICE WOOD AT BEDSIDE
[2020-08-27 22:22] LABS: BASOPHILS % (AUTO) 0.8 % (0.0-2.0); EOSINOPHILS % (AUTO) 5.7 % (0.0-6.0); HEMATOCRIT 41 % (39-51); HEMOGLOBIN 13.8 g/dL (13.5-17.5); LYMPHOCYTES % (AUTO) 23.3 % (20.0-44.0); MEAN CORPUSCULAR HGB CONC 33 g/dl (31.0-36.0); MEAN CORPUSCULAR VOLUME 99 fL (80-96); MONOCYTES % (AUTO) 12.9 % (2.0-12.0); NEUTROPHILS % (AUTO) 57.3 % (43.0-81.0); PLATELET COUNT (AUTO) 239 /CMM (150-450); RED BLOOD CELL COUNT(AUTO) 4.17 MIL/uL (4.5-6.0); WHITE BLOOD COUNT (AUTO) 5.3 K/uL (4.3-11.0)
[2020-08-27 22:23] LABS: LYMPHOCYTES # (AUTO) 1.2 /CMM (0.8-4.8); MONOCYTES # (AUTO) 0.7 /CMM (0.1-1.30)
--- NOTE | 2020-08-27 22:28 | NUR ---
URINE COLLECTED AND SENT TO LAB
[2020-08-27 22:31] LABS: CARBON DIOXIDE 30 mmol/L (21-32); CHLORIDE 101 mmol/L (98-107); GLUCOSE 102 mg/dL (74-106); POTASSIUM 3.4 mmol/L (3.5-5.1); SODIUM SERUM 138 mmol/L (136-145); UREA NITROGEN, BLOOD 20 mg/dL (7-18)
[2020-08-27 22:37] LABS: ALANINE AMINOTRANSFERASE 29 U/L (12-78); ALBUMIN 3.8 g/dL (3.4-5.0); ALCOHOL, BLOOD < 3 mg/dL (0-0); ALKALINE PHOSPHATASE 66 U/L (46-116); ASPARTATE AMINOTRANSFERASE 23 U/L (15-37); BILIRUBIN,DIRECT 0.1 mg/dL (0.0-0.2); BILIRUBIN,TOTAL 0.3 mg/dL (0.2-1.0)
[2020-08-27 22:38] LABS: ACETAMINOPHEN < 2 ug/ml (10-30)
[2020-08-27 22:40] LABS: APPEARANCE,URINE CLEAR (CLEAR); BILIRUBIN,URINE NEGATIVE (NEGATIVE); BLOOD, URINE LARGE Ery/uL (NEGATIVE); COLOR,URINE YELLOW (YELLOW); KETONES,URINE NEGATIVE (NEGATIVE); LEUKOCYTE ESTERASE ,URINE NEGATIVE (NEGATIVE); NITRITE, URINE NEGATIVE (NEGATIVE); PROTEIN,URINE TRACE mg/dl (NEGATIVE); UGLUCOSE NEGATIVE (NEGATIVE)
[2020-08-27 22:47] LABS: BACTERIA,URINE None seen /HPF (None Seen); SQUAMOUS EPITHELIAL CELL,UR Few /HPF (None Seen); WBC,URINE 0-2 /HPF (0-3)
--- NOTE | 2020-08-28 00:28 | NUR ---
CLINICAL INFO FAXED TO [facility] FOR VOLUNTARY PSYCH ADMISSION.
--- NOTE | 2020-08-28 02:47 | NUR ---
PT ASLEEP, VSS. PROVIDED WITH MORE BLANKETS.
--- NOTE | 2020-08-28 05:24 | NUR ---
LAB CALLED REGARDING NEGATIVE COVID RESULT.
--- NOTE | 2020-08-28 07:11 | NUR ---
TRANSFER INFORMATION: PT ACCEPTED TO [facility] ACCEPTING MD: DR. MORGAN NUMBER FOR REPORT: [phone] UNIT 1
--- NOTE | 2020-08-28 07:16 | NUR ---
[facility] ETA 0800
--- NOTE | 2020-08-28 07:25 | NUR ---
REPORT GIVEN TO WALTER CAVANAUGH FROM [facility] FOR LB
[2020-08-28 09:06] VITALS: BP 118/72
== END 2020-08-28 09:07 ==
LOC: ER 21:50
DX: R45.851 Suicidal ideations (principal); M79.7 Fibromyalgia; G62.9 Polyneuropathy, unspecified; M19.90 Unspecified osteoarthritis, unspecified site; Z79.899 Other long term (current) drug therapy; Z20.828 Contact with and (suspected) exposure to other viral communicable diseases; Z59.0 Homelessness
CPT/HCPCS: 36415; 80048; 80076; 80299; 80307 ×2; 80320; 81001; 85025; 87426; 99285; C9803; 81000-TC; G0480

== ENCOUNTER 2020-09-22 07:57 | Emergency (ER) | payer MEDICAID ==
[~2020-09-22] VITALS: Ht 172.7 cm; Wt 61.2 kg
--- NOTE | 2020-09-22 08:04 | NUR ---
BIBRA C/O R FOOT PAIN 03/17. NO THER COMPLAINTS NOTED. NO SWELLING NOTED. ABLE TO MOVE RLE WITH NO DIFFICULTIES. VS CHECKED. AWAITING MD MURRAY.
[2020-09-22] MEDS ORDERED: IBUPROFEN 600 MG TABLET ONE (08:28)
[2020-09-22] MEDS ORDERED: IBUPROFEN 600 MG TABLET PO ONE (08:30)
--- NOTE | 2020-09-22 08:32 | NUR ---
PT STATED HE IS SUICIDAL AND HIS PLAN IS TO RUN THRU TRAFFIC.
--- NOTE | 2020-09-22 08:35 | NUR ---
URINE SPECIMEN COLLECTED AND SENT TO LAB.
--- NOTE | 2020-09-22 08:45 | NUR ---
ER PHLEB AT BEDSIDE FOR BLOOD DRAW.
--- NOTE | 2020-09-22 08:59 | NUR ---
COVID SPECIMEN OBTAINED AND SENT TO LAB.
[2020-09-22 09:07] LABS: BASOPHILS # (AUTO) 0.1 /CMM (0.0-0.2); BASOPHILS % (AUTO) 0.5 % (0.0-2.0); EOSINOPHILS % (AUTO) 0.5 % (0.0-6.0); HEMATOCRIT 35 % (39-51); HEMOGLOBIN 11.5 g/dL (13.5-17.5); LYMPHOCYTES # (AUTO) 0.9 /CMM (0.8-4.8); LYMPHOCYTES % (AUTO) 7.4 % (20.0-44.0); MEAN CORPUSCULAR HGB CONC 33 g/dl (31.0-36.0); MEAN CORPUSCULAR VOLUME 98 fL (80-96); MONOCYTES # (AUTO) 0.9 /CMM (0.1-1.30); MONOCYTES % (AUTO) 7.1 % (2.0-12.0); NEUTROPHILS # (AUTO) 10.7 /CMM (1.8-8.9); NEUTROPHILS % (AUTO) 84.5 % (43.0-81.0); PLATELET COUNT (AUTO) 449 /CMM (150-450); RED BLOOD CELL COUNT(AUTO) 3.58 MIL/uL (4.5-6.0); WHITE BLOOD COUNT (AUTO) 12.7 K/uL (4.3-11.0)
[2020-09-22 09:12] LABS: BILIRUBIN,URINE NEGATIVE (NEGATIVE); BLOOD, URINE SMALL Ery/uL (NEGATIVE); COLOR,URINE YELLOW (YELLOW); LEUKOCYTE ESTERASE ,URINE NEGATIVE (NEGATIVE); NITRITE, URINE NEGATIVE (NEGATIVE); PH,URINE 6.5 (5.0-8.0); PROTEIN,URINE TRACE mg/dl (NEGATIVE); UGLUCOSE NEGATIVE (NEGATIVE)
[2020-09-22 09:22] LABS: CALCIUM, SERUM 9.3 mg/dL (8.5-10.1); CARBON DIOXIDE 31 mmol/L (21-32); CHLORIDE 100 mmol/L (98-107); CREATININE 0.9 mg/dL (0.6-1.3); GLUCOSE 109 mg/dL (74-106); SODIUM SERUM 137 mmol/L (136-145); UREA NITROGEN, BLOOD 23 mg/dL (7-18)
[2020-09-22 09:29] LABS: ALANINE AMINOTRANSFERASE 65 U/L (12-78); ALBUMIN 2.8 g/dL (3.4-5.0); ALCOHOL, BLOOD < 3 mg/dL (0-0); ALKALINE PHOSPHATASE 77 U/L (46-116); ASPARTATE AMINOTRANSFERASE 25 U/L (15-37); BILIRUBIN,DIRECT 0.1 mg/dL (0.0-0.2); BILIRUBIN,TOTAL 0.3 mg/dL (0.2-1.0); TOTAL PROTEIN, SERUM 8.1 g/dL (6.4-8.2)
[2020-09-22 09:30] LABS: ACETAMINOPHEN < 2 ug/ml (10-30)
[2020-09-22 09:42] LABS: BACTERIA,URINE Rare /HPF (None Seen); SQUAMOUS EPITHELIAL CELL,UR Few /HPF (None Seen); WBC,URINE 0-2 /HPF (0-3)
--- NOTE | 2020-09-22 10:04 | NUR ---
PER [facility] NO BEDS AVAILABLE AT [facility].
--- NOTE | 2020-09-22 11:23 | NUR ---
CLINICALS AND FACE SHEET FAXED TO [facility].
--- NOTE | 2020-09-22 19:20 | NUR ---
ASSUMED CARE FOR THIS PT
--- NOTE | 2020-09-22 20:00 | NUR ---
PT AAOX4, VSS, RESPIRATIONS EVEN AND UNLABORED W/ NAD NOTED. PT CONNECTED TO THE MONITOR AND POX
--- NOTE | 2020-09-22 20:41 | NUR ---
PT RESTING COMFORTABLY. VSS. PROVIDED WITH MORE BLANKETS.
--- NOTE | 2020-09-23 04:24 | NUR ---
PT RESTING COMFORTABLY IN BED. VSS. NO ACUTE DISTRESS NOTED. WILL CONTINUE TO MONITOR
--- NOTE | 2020-09-23 06:22 | NUR ---
INOCULATOR AT BEDSIDE FOR LABS.
--- NOTE | 2020-09-23 10:53 | NUR ---
10:50am This SW contacted [facility] intake . This SW spoke with benefits representative Art. Art reported that there are currently no beds available at this time. Patient is currently pending placement. SW to follow-up as patient's status may change. Plan: This SW to follow-up with [facility] intake for an updated status of this referral.
--- NOTE | 2020-09-23 10:53 | NUR ---
SAY contacted Clerical Warehouseman Dulce Maria who evaluated this patient. Per Dulce Maria, patient was referred to [facility] and [facility]. SAY to assist Dulce Maria in following up regarding placement for voluntary psychiatric hospitalization.
--- NOTE | 2020-09-23 10:57 | NUR ---
SAY followed up with Rene at [facility] as patient was referred by Elastic Yarn Twister Dulce Maria. Per Rene, a bed will be held pending discharges. Plan: SAY to follow up with Rene for an updated status of this referral.
--- NOTE | 2020-09-23 12:07 | NUR ---
CALL FROM WIL Valverde/ EFRAÍN INFO: ACCEPTED TO [facility] BY VALENTIN MORGAN/KIEL,320-B,REPORT TO BE CALLED TO [phone],KATHY WATSON
--- NOTE | 2020-09-23 12:35 | NUR ---
SPOKED TO [facility]. [facility]INICALS.
--- NOTE | 2020-09-23 13:08 | NUR ---
RECIEVED A CALL FROM HAY FROM [facility]. PT IS ACCEPTED AT [facility]. PT WILL GO TO [facility] ROOM [facility]. NUMBER FOR REPORT IS [phone]. DR. MARIE IS THE ACCEPTING.
--- NOTE | 2020-09-23 13:26 | NUR ---
REPORT GIVEN TO WALTER CHAVEZ OF [employer].
--- NOTE | 2020-09-23 13:27 | NUR ---
CALLED [facility]. ETA 1800.
--- NOTE | 2020-09-23 13:35 | NUR ---
CALLED [facility] FOR TRANSPORT TO [facility]. ETA [phone]. TRIP NUMBER [id number].
--- NOTE | 2020-09-23 16:20 | NUR ---
AMBULANCE 331 AT [facility] FOR PT TRANSPORT TO [facility]. REPORT GIVEN TO LELA HUGO. PT IS IN STABLE CONDITION FOR TRANSPORT.
[2020-09-23 16:42] VITALS: BP 120/81
== END 2020-09-23 16:43 ==
LOC: ER 08:03
DX: R45.851 Suicidal ideations (principal); G62.9 Polyneuropathy, unspecified; M79.7 Fibromyalgia; Z20.828 Contact with and (suspected) exposure to other viral communicable diseases; Z79.899 Other long term (current) drug therapy
CPT/HCPCS: 36415; 80048; 80076; 80299; 80307; 80320; 81001; 85025; 87426; 99285; C9803; G0480

== ENCOUNTER 2020-10-31 13:55 | Emergency (ER) | payer MEDICAID ==
[~2020-10-31] VITALS: Ht 172.7 cm; Wt 81.6 kg
[2020-10-31 17:20] LABS: BASOPHILS % (AUTO) 0.7 % (0.0-2.0); EOSINOPHILS % (AUTO) 1.3 % (0.0-6.0); HEMATOCRIT 44 % (39-51); HEMOGLOBIN 14.3 g/dL (13.5-17.5); MEAN CORPUSCULAR HGB CONC 33 g/dl (31.0-36.0); MEAN CORPUSCULAR VOLUME 99 fL (80-96); MONOCYTES # (AUTO) 0.8 /CMM (0.1-1.30); MONOCYTES % (AUTO) 16.7 % (2.0-12.0); NEUTROPHILS # (AUTO) 2.9 /CMM (1.8-8.9); NEUTROPHILS % (AUTO) 61.3 % (43.0-81.0); PLATELET COUNT (AUTO) 313 /CMM (150-450); RED BLOOD CELL COUNT(AUTO) 4.38 MIL/uL (4.5-6.0); WHITE BLOOD COUNT (AUTO) 4.8 K/uL (4.3-11.0)
[2020-10-31 17:34] LABS: ALANINE AMINOTRANSFERASE 26 U/L (12-78); ALBUMIN 3.7 g/dL (3.4-5.0); ALCOHOL, BLOOD 5 mg/dL (0-0); ALKALINE PHOSPHATASE 71 U/L (46-116); ASPARTATE AMINOTRANSFERASE 21 U/L (15-37); BILIRUBIN,DIRECT 0.1 mg/dL (0.0-0.2); BILIRUBIN,TOTAL 0.5 mg/dL (0.2-1.0); CALCIUM, SERUM 9.6 mg/dL (8.5-10.1); CARBON DIOXIDE 28 mmol/L (21-32); CHLORIDE 104 mmol/L (98-107); CREATININE 1.1 mg/dL (0.6-1.3); GLUCOSE 86 mg/dL (74-106); POTASSIUM 3.5 mmol/L (3.5-5.1); SODIUM SERUM 142 mmol/L (136-145); TOTAL PROTEIN, SERUM 8.2 g/dL (6.4-8.2); UREA NITROGEN, BLOOD 17 mg/dL (7-18)
[2020-10-31 17:39] LABS: ACETAMINOPHEN < 2 ug/ml (10-30)
--- NOTE | 2020-10-31 18:39 | NUR ---
PT PROVIDED WITH WARM BLANKET AND LAYING COMFORTABLY.
--- NOTE | 2020-10-31 18:40 | NUR ---
URINE COLLECTED AND SENT TO LAB.
--- NOTE | 2020-10-31 19:09 | NUR ---
pt in bed asleep. comfortable. no distress noted.
--- NOTE | 2020-10-31 19:26 | NUR ---
FARIDEHID SWABBED, SENT TO LAB.
--- NOTE | 2020-10-31 19:59 | NUR ---
FACESHEET AND CLINICALS FAXED TO [facility].
[2020-10-31 20:50] LABS: BAND % (MANUAL) 1 % (0.0-5.0); EOSINOPHILS % (MANUAL) 1 % (0-4); LYMPHOCYTES % (MANUAL) 23 % (16-48); MONOCYTES % (MANUAL) 16 % (0-11.0); NEUTROPHILS % (MANUAL) 59 (42-76)
--- NOTE | 2020-10-31 23:13 | NUR ---
ROOM AT [place] [phone] SPENSER CARTER [phone] (CALL BACK WITH ETA)
--- NOTE | 2020-10-31 23:18 | NUR ---
[facility] CALLED FOR TRANSPORT. ETA 0036
--- NOTE | 2020-10-31 23:26 | NUR ---
REPORT GIVEN TO WALTER BURRELL FOR LB
--- NOTE | 2020-11-01 00:45 | NUR ---
REPORT GIVEN TO [facility] FOR TRANSPORTATION LB. PT TRANSFERRED TO [facility] IN STABLE CONDITION.
[2020-11-01 00:57] VITALS: BP 131/72
== END 2020-11-01 00:58 ==
LOC: ER 14:00
DX: R45.851 Suicidal ideations (principal); F14.10 Cocaine abuse, uncomplicated; G89.29 Other chronic pain; M79.7 Fibromyalgia; G62.9 Polyneuropathy, unspecified; M19.90 Unspecified osteoarthritis, unspecified site; Z88.8 Allergy status to other drugs, medicaments and biological substances; Z79.899 Other long term (current) drug therapy; Z20.828 Contact with and (suspected) exposure to other viral communicable diseases
CPT/HCPCS: 36415; 80048; 80076; 80299; 80307; 80320; 85007; 85025; 87426; 99285; C9803; G0480

== ENCOUNTER 2021-06-11 01:47 | Emergency (ER) | payer MEDICAID ==
[~2021-06-11] VITALS: Ht 172.7 cm; Wt 56.7 kg
--- NOTE | 2021-06-11 01:47 | NUR ---
TO ER BED REQUESTING MEDICAL CLEARANCE FOR VOLUNTARY PSYCH ADMISSION. PT C/O SI WITH PLAN TO GET HIT BY A MOVING CAR. DENIES HI. PT AAOX4 NO ACUTE DISTRESS NOTED, RESP EVEN AND UNLABORED. PT CALM AND COOPERATIVE AT THIS TIME. PLACE PT ON HOSPITAL GOWN, ALL BELONGINGS REMOVED FROM ROOM AND PLACED IN A LOCKED HOSPITAL LOCKER. 1:1 SITTER AT [facility] FOR PT SAFETY.
--- NOTE | 2021-06-11 02:25 | NUR ---
URINE SAMPLE COLLECTED AND SENT TO LAB.
[2021-06-11 03:01] LABS: BILIRUBIN,URINE NEGATIVE (NEGATIVE); COLOR,URINE YELLOW (YELLOW); LEUKOCYTE ESTERASE ,URINE NEGATIVE (NEGATIVE); NITRITE, URINE NEGATIVE (NEGATIVE); PROTEIN,URINE NEGATIVE (NEGATIVE); UGLUCOSE NEGATIVE (NEGATIVE)
[2021-06-11 03:01] LABS: BASOPHILS % (AUTO) 0.7 % (0.0-2.0); EOSINOPHILS % (AUTO) 7.9 % (0.0-6.0); HEMATOCRIT 40 % (39-51); HEMOGLOBIN 13.4 g/dL (13.5-17.5); LYMPHOCYTES # (AUTO) 1.7 K/uL (0.8-4.8); LYMPHOCYTES % (AUTO) 22.8 % (20.0-44.0); MEAN CORPUSCULAR HGB CONC 34 g/dl (31.0-36.0); MEAN CORPUSCULAR VOLUME 101 fL (80-96); MONOCYTES # (AUTO) 0.7 K/uL (0.1-1.30); MONOCYTES % (AUTO) 9.8 % (2.0-12.0); NEUTROPHILS # (AUTO) 4.3 K/uL (1.8-8.9); NEUTROPHILS % (AUTO) 58.8 % (43.0-81.0); PLATELET COUNT (AUTO) 247 K/uL (150-450); RED BLOOD CELL COUNT(AUTO) 3.95 MIL/uL (4.5-6.0); WHITE BLOOD COUNT (AUTO) 7.3 K/uL (4.3-11.0)
[2021-06-11 03:09] LABS: BACTERIA,URINE Rare /HPF (None Seen); SQUAMOUS EPITHELIAL CELL,UR Rare /HPF (None Seen)
[2021-06-11 03:16] LABS: CALCIUM, SERUM 9.1 mg/dL (8.5-10.1); CARBON DIOXIDE 33 mmol/L (21-32); CHLORIDE 106 mmol/L (98-107); GLUCOSE 91 mg/dL (74-106); POTASSIUM 4.4 mmol/L (3.5-5.1); SODIUM SERUM 142 mmol/L (136-145); UREA NITROGEN, BLOOD 21 mg/dL (7-18)
[2021-06-11 03:23] LABS: ALANINE AMINOTRANSFERASE 20 U/L (12-78); ALBUMIN 3.9 g/dL (3.4-5.0); ALKALINE PHOSPHATASE 71 U/L (46-116); ASPARTATE AMINOTRANSFERASE 11 U/L (15-37); BILIRUBIN,DIRECT 0.1 mg/dL (0.0-0.2); BILIRUBIN,TOTAL 0.4 mg/dL (0.2-1.0); TOTAL PROTEIN, SERUM 7.4 g/dL (6.4-8.2)
[2021-06-11 03:24] LABS: ACETAMINOPHEN 0 ug/ml (10-30); ALCOHOL, BLOOD < 3 mg/dL (0-0)
--- NOTE | 2021-06-11 04:40 | NUR ---
CLINICAL AND FACESHEET FAXED TO [facility]TA[facility] FOR VOLUNTARY PSYCH ADMISSION.
--- NOTE | 2021-06-11 07:43 | NUR ---
THE PATIENT SLEEPING IN BED. RESPONSIVE TO VERBAL STIMULI. IN NO APPARENT DISTRESS.
--- NOTE | 2021-06-11 09:31 | NUR ---
Madina stated PT being reviewed to be admitted into [facility]. Will call back in one hour to confirm availabilty of a room.
--- NOTE | 2021-06-11 10:17 | NUR ---
PT WAS ACCEPTED TO [facility]. ACCEPTING DR. LYNN MORGAN. NEED TO CALL GIVE REPORT TO [phone] EX;[phone]
--- NOTE | 2021-06-11 10:42 | NUR ---
PATIENT IS REFUSING TO GO TO [facility]. CALLED [facility] AND SPOKE TO [facility], THERE ARE NO BEDS AVAILABLE AT [facility] AT THIS TIME. PATIENT MADE AWARE AND HE WANTS TO WAIT.
--- NOTE | 2021-06-11 10:47 | NUR ---
JR FROM [facility] MADE AWARE OF PATIENT'S PLAN TO WAIT.
--- NOTE | 2021-06-11 11:46 | NUR ---
ACCEPTED TO [facility] UNDER DR MORGAN. PER BOOK SEWING MACHINE OPERATOR SEND THE PATIENT [id number]. FOR REPORT [phone]
--- NOTE | 2021-06-11 13:26 | NUR ---
PER JANKI CHARGE NURSE FROM [facility] THE PATIENT IS NOT ACCEPTED YET. JANKI WILL CALL BACK WITH UPDATE.
--- NOTE | 2021-06-11 14:38 | NUR ---
REPORT GIVEN TO JERICA WATSON AT [facility]
--- NOTE | 2021-06-11 15:36 | NUR ---
Called [facility] [phone], eta is [phone]
--- NOTE | 2021-06-11 22:34 | NUR ---
PT RESTING QUIETLY, NO ACUTE DISTRESS NOTED, RESP EVEN AND UNLABORED. PT DENIE HANNAH OR DISCOMFORT AT THIS TIME.
--- NOTE | 2021-06-11 23:19 | NUR ---
[facility] CALLED TO F/U WITH TRANSPORT, PER DISPATCH TRANSPORT WILL BE DELAYED ANOTHER 45MIN.
--- NOTE | 2021-06-12 00:24 | NUR ---
[facility] CALLED TO F/U WITH TRANSPORT, PER DISPATCH TRANSPORT WILL BE DELAYED ANOTHER 15-20MIN
[2021-06-12 00:29] VITALS: BP 132/68
--- NOTE | 2021-06-12 00:31 | NUR ---
PT STATES "I WANT TO JUST LEAVE, I FEEL BETTER BRO AND I AM NOT GOING TO HURT MYSELF". PT DENIES SI/HI. PT REFUSE TO WAIT FOR [facility]CI AND TO SIGN HOMELESS WAIVER.
== END 2021-06-12 01:17 | disposition left against medical advice (07) ==
LOC: ER 01:57
DX: R45.851 Suicidal ideations (principal); F31.9 Bipolar disorder, unspecified; M79.7 Fibromyalgia; M19.90 Unspecified osteoarthritis, unspecified site; G62.9 Polyneuropathy, unspecified; Z59.0 Homelessness; Z79.899 Other long term (current) drug therapy
CPT/HCPCS: 36415; 80048; 80076; 80143; 80307; 80320; 81001; 85025; 87426; 99285; C9803; G0480

== ENCOUNTER 2021-07-09 15:31 | Emergency (ER) | payer MEDICAID ==
[~2021-07-09] VITALS: Ht 172.7 cm; Wt 58.1 kg
--- NOTE | 2021-07-09 16:00 | NUR ---
THE PATIENT BIBS FOR FEELING DEPRESSED AND HAVING SI WITH PLAN TO RUN TO TRAFFIC. ALERT AND ORIENTED X3. DENIES PAIN. IN ROOM AIR AND DENIES SOB. RESPIRATION REGULAR AND UNLABORED. WILL CONTINUE TO MONITOR THE PATIENT.
--- NOTE | 2021-07-09 17:21 | NUR ---
COVID SWAB DONE AND SENT TO [facility]
[2021-07-09 17:47] LABS: BASOPHILS % (AUTO) 0.8 % (0.0-2.0); HEMATOCRIT 43 % (39-51); HEMOGLOBIN 14.4 g/dL (13.5-17.5); LYMPHOCYTES # (AUTO) 1.5 K/uL (0.8-4.8); MEAN CORPUSCULAR HGB CONC 33 g/dl (31.0-36.0); MEAN CORPUSCULAR VOLUME 102 fL (80-96); MONOCYTES # (AUTO) 0.6 K/uL (0.1-1.30); MONOCYTES % (AUTO) 11.3 % (2.0-12.0); NEUTROPHILS # (AUTO) 3.1 K/uL (1.8-8.9); NEUTROPHILS % (AUTO) 57.9 % (43.0-81.0); PLATELET COUNT (AUTO) 220 K/uL (150-450); RED BLOOD CELL COUNT(AUTO) 4.27 MIL/uL (4.5-6.0); WHITE BLOOD COUNT (AUTO) 5.3 K/uL (4.3-11.0)
[2021-07-09 18:29] LABS: BILIRUBIN,URINE NEGATIVE (NEGATIVE); COLOR,URINE YELLOW (YELLOW); LEUKOCYTE ESTERASE ,URINE NEGATIVE (NEGATIVE); NITRITE, URINE NEGATIVE (NEGATIVE); PROTEIN,URINE NEGATIVE (NEGATIVE); UGLUCOSE NEGATIVE (NEGATIVE)
[2021-07-09 18:32] LABS: ALANINE AMINOTRANSFERASE 19 U/L (12-78); ALBUMIN 4.2 g/dL (3.4-5.0); ALKALINE PHOSPHATASE 68 U/L (46-116); ASPARTATE AMINOTRANSFERASE 16 U/L (15-37); BILIRUBIN,DIRECT 0.1 mg/dL (0.0-0.2); BILIRUBIN,TOTAL 0.5 mg/dL (0.2-1.0); CARBON DIOXIDE 31 mmol/L (21-32); CHLORIDE 106 mmol/L (98-107); CREATININE 0.9 mg/dL (0.6-1.3); GLUCOSE 62 mg/dL (74-106); POTASSIUM 3.5 mmol/L (3.5-5.1); SODIUM SERUM 144 mmol/L (136-145); TOTAL PROTEIN, SERUM 7.8 g/dL (6.4-8.2); UREA NITROGEN, BLOOD 13 mg/dL (7-18)
[2021-07-09 18:42] LABS: ACETAMINOPHEN < 10 ug/ml (10-30); ALCOHOL, BLOOD < 3 mg/dL (0-0)
[2021-07-09 18:43] LABS: BACTERIA,URINE Few /HPF (None Seen); SQUAMOUS EPITHELIAL CELL,UR Few /HPF (None Seen); WBC,URINE 0-2 /HPF (0-3)
--- NOTE | 2021-07-09 19:09 | NUR ---
CLINICALS FAXED TO [facility].
--- NOTE | 2021-07-09 21:43 | NUR ---
PATIENT WILL BE UNDER CARE OF DR. LINDQUIST. NUMBER FOR REPORT Addendum: 07/09/21 at 2145 by CBATACLAN PT ACCEPTED TO [facility]. PATIENT WILL BE UNDER CARE OF DR. LINDQUIST. NUMBER FOR REPORT
--- NOTE | 2021-07-09 22:02 | NUR ---
[facility] CALLED FOR TRANSPORT. ETA 2-2.5 HRS.
--- NOTE | 2021-07-09 23:28 | NUR ---
REPORT GIVEN TO
--- NOTE | 2021-07-10 02:01 | NUR ---
REPORT GIVEN TO EMS FOR PATIENT TRANSFER. PATIENT IN NO ACUTE DISTRESS. PT VSS.
[2021-07-10 02:02] VITALS: BP 122/71
== END 2021-07-10 02:10 ==
LOC: ER 15:33
DX: R45.851 Suicidal ideations (principal); F14.10 Cocaine abuse, uncomplicated; M79.7 Fibromyalgia; G62.9 Polyneuropathy, unspecified; M19.90 Unspecified osteoarthritis, unspecified site; Z20.822 Contact with and (suspected) exposure to COVID-19
CPT/HCPCS: 36415; 80048; 80076; 80143; 80307; 80320; 81001; 85025; 87426; 99285; C9803; G0480

== ENCOUNTER 2021-10-21 14:34 | Emergency (ER) | payer MEDICAID ==
[~2021-10-21] VITALS: Ht 172.7 cm; Wt 65.8 kg
--- NOTE | 2021-10-21 15:01 | NUR ---
THEPATIENT BIBS FOR C/O SI WITH PLAN TO RUN INTO TRAFFIC, NEEDS MEDICAL CLEARANCE FOR VOLUNTARY. DENES PAIN. IN ROOM AIR AND DENIES SOB. RESPIRATION REGULAR AND UNLABORED. WILL CONTINUE TO MONITOR THE PATIENT.
--- NOTE | 2021-10-21 15:30 | NUR ---
COVID ANTIGEN SWAB DONE AND SENT TO THE LAB
[2021-10-21 15:50] LABS: BASOPHILS # (AUTO) 0.1 K/uL (0.0-0.2); BASOPHILS % (AUTO) 0.6 % (0.0-2.0); EOSINOPHILS % (AUTO) 0.6 % (0.0-6.0); HEMATOCRIT 45 % (39-51); HEMOGLOBIN 15.1 g/dL (13.5-17.5); LYMPHOCYTES # (AUTO) 1.2 K/uL (0.8-4.8); LYMPHOCYTES % (AUTO) 11.9 % (20.0-44.0); MEAN CORPUSCULAR HGB CONC 34 g/dl (31.0-36.0); MEAN CORPUSCULAR VOLUME 99 fL (80-96); MONOCYTES # (AUTO) 0.7 K/uL (0.1-1.30); MONOCYTES % (AUTO) 7.7 % (2.0-12.0); NEUTROPHILS # (AUTO) 7.7 K/uL (1.8-8.9); NEUTROPHILS % (AUTO) 79.2 % (43.0-81.0); PLATELET COUNT (AUTO) 288 K/uL (150-450); WHITE BLOOD COUNT (AUTO) 9.7 K/uL (4.3-11.0)
[2021-10-21 16:18] LABS: ALANINE AMINOTRANSFERASE 25 U/L (12-78); ALBUMIN 3.7 g/dL (3.4-5.0); ALCOHOL, BLOOD < 3 mg/dL (0-0); ALKALINE PHOSPHATASE 78 U/L (46-116); ASPARTATE AMINOTRANSFERASE 18 U/L (15-37); BILIRUBIN,DIRECT 0.1 mg/dL (0.0-0.2); BILIRUBIN,TOTAL 0.3 mg/dL (0.2-1.0); CALCIUM, SERUM 9.2 mg/dL (8.5-10.1); CARBON DIOXIDE 32 mmol/L (21-32); CHLORIDE 105 mmol/L (98-107); GLUCOSE 127 mg/dL (74-106); POTASSIUM 4.3 mmol/L (3.5-5.1); SODIUM SERUM 143 mmol/L (136-145); TOTAL PROTEIN, SERUM 7.7 g/dL (6.4-8.2); UREA NITROGEN, BLOOD 17 mg/dL (7-18)
[2021-10-21 16:23] LABS: ACETAMINOPHEN < 10 ug/ml (10-30)
[2021-10-21 17:23] LABS: BILIRUBIN,URINE NEGATIVE (NEGATIVE); COLOR,URINE DARK YELLOW (YELLOW); LEUKOCYTE ESTERASE ,URINE NEGATIVE (NEGATIVE); NITRITE, URINE NEGATIVE (NEGATIVE); PROTEIN,URINE NEGATIVE (NEGATIVE); UGLUCOSE NEGATIVE (NEGATIVE); UROBILINOGEN,URINE 0.2 EU/dL (0.2)
--- NOTE | 2021-10-21 17:41 | NUR ---
FAXED CLINICALS TO [facility]
[2021-10-21 17:47] LABS: BACTERIA,URINE None seen /HPF (None Seen); SQUAMOUS EPITHELIAL CELL,UR Few /HPF (None Seen); WBC,URINE 0-2 /HPF (0-3)
--- NOTE | 2021-10-21 20:14 | NUR ---
patient alert and oriented resting comfortably no complaints at this time.
--- NOTE | 2021-10-22 01:23 | NUR ---
SPOKE TO DAMON AT [facility]. CLINICALS ARE REC'D
[2021-10-22 05:56] VITALS: BP 122/71
--- NOTE | 2021-10-22 08:33 | NUR ---
PT ACCETED AT [facility] UNDER DR. SHANKS . [phone] REPORT.
--- NOTE | 2021-10-22 08:35 | NUR ---
[facility] CALLED ETA 60 MINS PER RAMON
--- NOTE | 2021-10-22 09:07 | NUR ---
report given to tashabana at [facility]. awaiting transport.
== END 2021-10-22 10:13 ==
LOC: ER 14:37
DX: R45.851 Suicidal ideations (principal); G62.9 Polyneuropathy, unspecified; M79.7 Fibromyalgia; Z82.49 Family history of ischemic heart disease and other diseases of the circulatory system; Z59.01 Sheltered homelessness; Z20.822 Contact with and (suspected) exposure to COVID-19; Z79.899 Other long term (current) drug therapy
CPT/HCPCS: 36415; 80048; 80076; 80143; 80307; 80320; 81001; 85025; 87426; 99285; C9803; G0480

== ENCOUNTER 2021-11-01 08:39 | Emergency (ER) | payer MEDICAID ==
[~2021-11-01] VITALS: Ht 172.7 cm; Wt 79.4 kg
--- NOTE | 2021-11-01 08:39 | NUR ---
PT BIB SELF REQUESTING VOLUNTARY PSYCH ADMISSION TO [facility] FOR SI " IWANT TO RUN THRU TRAFFIC" PT IS AAOX4, NOT IN RESPIRATORY DISTRESS, V/S STABLE, KEPT RESTED AND COMFORTABLE. WILL CONTINUE TO MONITOR.
--- NOTE | 2021-11-01 08:46 | NUR ---
PT SEEN AND EXAMINEDB Y .
--- NOTE | 2021-11-01 09:16 | NUR ---
URINE SPECIMEN COLLECTED AND SENT TO LAB.
--- NOTE | 2021-11-01 09:19 | NUR ---
ER PHLEB AT BEDSIDE FOR BLOOD DRAW.
[2021-11-01 09:35] LABS: BASOPHILS # (AUTO) 0.1 K/uL (0.0-0.2); BASOPHILS % (AUTO) 1.1 % (0.0-2.0); EOSINOPHILS % (AUTO) 1.6 % (0.0-6.0); HEMATOCRIT 39 % (39-51); HEMOGLOBIN 13.3 g/dL (13.5-17.5); LYMPHOCYTES # (AUTO) 1.1 K/uL (0.8-4.8); LYMPHOCYTES % (AUTO) 16.5 % (20.0-44.0); MEAN CORPUSCULAR HGB CONC 34 g/dl (31.0-36.0); MEAN CORPUSCULAR VOLUME 100 fL (80-96); MONOCYTES # (AUTO) 0.8 K/uL (0.1-1.30); MONOCYTES % (AUTO) 11.7 % (2.0-12.0); NEUTROPHILS # (AUTO) 4.6 K/uL (1.8-8.9); NEUTROPHILS % (AUTO) 69.1 % (43.0-81.0); PLATELET COUNT (AUTO) 248 K/uL (150-450); RED BLOOD CELL COUNT(AUTO) 3.93 MIL/uL (4.5-6.0); WHITE BLOOD COUNT (AUTO) 6.7 K/uL (4.3-11.0)
[2021-11-01 09:45] LABS: BILIRUBIN,URINE SMALL (NEGATIVE); COLOR,URINE YELLOW (YELLOW); LEUKOCYTE ESTERASE ,URINE NEGATIVE (NEGATIVE); NITRITE, URINE NEGATIVE (NEGATIVE); PROTEIN,URINE NEGATIVE (NEGATIVE); UGLUCOSE NEGATIVE (NEGATIVE)
--- NOTE | 2021-11-01 10:13 | NUR ---
COVID SWAB DONE AND SENT TO LAB
[2021-11-01 10:23] LABS: BACTERIA,URINE Few /HPF (None Seen); SQUAMOUS EPITHELIAL CELL,UR Few /HPF (None Seen); WBC,URINE 0-2 /HPF (0-3)
[2021-11-01 11:51] LABS: CALCIUM, SERUM 9.3 mg/dL (8.5-10.1); CARBON DIOXIDE 33 mmol/L (21-32); CHLORIDE 104 mmol/L (98-107); CREATININE 0.9 mg/dL (0.6-1.3); GLUCOSE 79 mg/dL (74-106); POTASSIUM 3.6 mmol/L (3.5-5.1); SODIUM SERUM 144 mmol/L (136-145); UREA NITROGEN, BLOOD 14 mg/dL (7-18)
[2021-11-01 12:07] LABS: ALANINE AMINOTRANSFERASE 30 U/L (12-78); ALBUMIN 4.1 g/dL (3.4-5.0); ALCOHOL, BLOOD < 3 mg/dL (0-0); ALKALINE PHOSPHATASE 78 U/L (46-116); BILIRUBIN,DIRECT 0.2 mg/dL (0.0-0.2); BILIRUBIN,TOTAL 0.6 mg/dL (0.2-1.0); TOTAL PROTEIN, SERUM 8.2 g/dL (6.4-8.2)
[2021-11-01 12:31] LABS: ASPARTATE AMINOTRANSFERASE 26 U/L (15-37)
[2021-11-01 12:36] LABS: ACETAMINOPHEN < 10 ug/ml (10-30)
--- NOTE | 2021-11-01 12:45 | NUR ---
FAXED CLINICALS TO [facility].
--- NOTE | 2021-11-01 21:33 | NUR ---
CALLED [facility] AND SPOKE TO ART. PT IS REQUESTING A WHEELCHAIR ROOM WHICH IS NOT AVAILABLE AT THIS TIME. HE ALSO REFUSED TO GO TO [facility]. ART WAS INFORMED . HE IS WORKING ON RM 105 IN UNIT ONE AND WILL INFORM US
--- NOTE | 2021-11-02 08:05 | NUR ---
BREAKFAST IS SERVED. THE PATIENT TOLERATES PROVIDED FOOD WELL.
[2021-11-02 12:01] VITALS: BP 126/75
--- NOTE | 2021-11-02 17:30 | NUR ---
DURING ROUTINE ROUND NOTED THAT THE PATIENT IS NOT IN THE HOLDING ROOM. THE PATIENT ELOPED.
--- NOTE | 2021-11-02 17:31 | NUR ---
Patient eloped from facility. Bello notified.
== END 2021-11-02 18:17 | disposition left against medical advice (07) ==
LOC: ER 08:44
DX: R45.851 Suicidal ideations (principal); F17.200 Nicotine dependence, unspecified, uncomplicated; Z88.8 Allergy status to other drugs, medicaments and biological substances; M79.7 Fibromyalgia; G62.9 Polyneuropathy, unspecified; Z79.899 Other long term (current) drug therapy
CPT/HCPCS: 36415; 80048; 80076; 80143; 80307; 80320; 81001; 85025; 87426; 99285; C9803; G0480

== ENCOUNTER 2021-11-04 00:18 | Emergency (ER) | payer MEDICAID ==
[~2021-11-04] VITALS: Ht 172.7 cm; Wt 68.0 kg
--- NOTE | 2021-11-04 04:40 | NUR ---
URINE SPECIMEN COLLECTED AND SENT TO LAB.
--- NOTE | 2021-11-04 04:45 | NUR ---
BIBS TO ER BED 19. AAOX4. NOT IN RESP DISTRESS. AMBULATORY WITH A FRONT WHEELED WALKER. CAME IN FOR SUICIDAL THOUGHTS W/ PLAN TO OD ON COCAINE. PT WANT TO COMMIT HIMSELF VOLUNTARY FOR PSYCH ADMISSION. PT DENIES HI. NOT HALLUCINTATION. WAS AT THE BEDSIDE FOR EVAL. ORDERS RECEIVED, NOTED AND CARRIED OUT. URINE COLLECTED.
[2021-11-04 05:12] LABS: BASOPHILS % (AUTO) 0.8 % (0.0-2.0); EOSINOPHILS % (AUTO) 2.2 % (0.0-6.0); HEMATOCRIT 40 % (39-51); HEMOGLOBIN 13.4 g/dL (13.5-17.5); LYMPHOCYTES # (AUTO) 1.2 K/uL (0.8-4.8); LYMPHOCYTES % (AUTO) 18.5 % (20.0-44.0); MEAN CORPUSCULAR HGB CONC 33 g/dl (31.0-36.0); MEAN CORPUSCULAR VOLUME 100 fL (80-96); MONOCYTES # (AUTO) 0.8 K/uL (0.1-1.30); MONOCYTES % (AUTO) 12.8 % (2.0-12.0); NEUTROPHILS # (AUTO) 4.1 K/uL (1.8-8.9); NEUTROPHILS % (AUTO) 65.7 % (43.0-81.0); PLATELET COUNT (AUTO) 245 K/uL (150-450); RED BLOOD CELL COUNT(AUTO) 4.02 MIL/uL (4.5-6.0); WHITE BLOOD COUNT (AUTO) 6.3 K/uL (4.3-11.0)
[2021-11-04 05:25] LABS: BILIRUBIN,URINE NEGATIVE (NEGATIVE); COLOR,URINE YELLOW (YELLOW); LEUKOCYTE ESTERASE ,URINE NEGATIVE (NEGATIVE); NITRITE, URINE NEGATIVE (NEGATIVE); PH,URINE 6.5 (5.0-8.0); PROTEIN,URINE NEGATIVE (NEGATIVE); UGLUCOSE NEGATIVE (NEGATIVE)
[2021-11-04 05:27] LABS: CALCIUM, SERUM 9.5 mg/dL (8.5-10.1); CARBON DIOXIDE 31 mmol/L (21-32); CHLORIDE 105 mmol/L (98-107); GLUCOSE 92 mg/dL (74-106); POTASSIUM 3.8 mmol/L (3.5-5.1); SODIUM SERUM 145 mmol/L (136-145); UREA NITROGEN, BLOOD 20 mg/dL (7-18)
[2021-11-04 05:35] LABS: ALANINE AMINOTRANSFERASE 24 U/L (12-78); ALBUMIN 3.9 g/dL (3.4-5.0); ALCOHOL, BLOOD < 3 mg/dL (0-0); ALKALINE PHOSPHATASE 78 U/L (46-116); ASPARTATE AMINOTRANSFERASE 15 U/L (15-37); BILIRUBIN,DIRECT 0.1 mg/dL (0.0-0.2); BILIRUBIN,TOTAL 0.3 mg/dL (0.2-1.0); TOTAL PROTEIN, SERUM 7.7 g/dL (6.4-8.2)
[2021-11-04 05:39] LABS: ACETAMINOPHEN 0 ug/ml (10-30)
--- NOTE | 2021-11-04 08:01 | NUR ---
PT ACCEPTED TO [facility] UNDER DR. DUEÑAS AFTER 3210
--- NOTE | 2021-11-04 08:08 | NUR ---
[facility] CALLED ASKED FOR ETA 1030 SPOKE WITH ABIDA.
[2021-11-04 08:19] LABS: WBC,URINE 0-2 /HPF (0-3)
[2021-11-04 08:20] LABS: BACTERIA,URINE Rare /HPF (None Seen); SQUAMOUS EPITHELIAL CELL,UR Few /HPF (None Seen)
--- NOTE | 2021-11-04 09:38 | NUR ---
REPORT GIVEN TO NURSE ANNA FROM [facility]
[2021-11-04 10:00] VITALS: BP 140/76
--- NOTE | 2021-11-04 10:36 | NUR ---
PICKED UP BY [facility] IN STABLE CONDITION
== END 2021-11-04 10:35 ==
LOC: ER 00:21
DX: R45.851 Suicidal ideations (principal); F31.9 Bipolar disorder, unspecified; F14.10 Cocaine abuse, uncomplicated; Z59.02 Unsheltered homelessness; Z20.822 Contact with and (suspected) exposure to COVID-19; F17.210 Nicotine dependence, cigarettes, uncomplicated; Z79.899 Other long term (current) drug therapy; M79.7 Fibromyalgia; G62.9 Polyneuropathy, unspecified
CPT/HCPCS: 36415; 80048; 80076; 80143; 80307; 80320; 81001; 85025; 87426; 99285; C9803; G0480

== ENCOUNTER 2021-11-28 21:05 | Emergency (ER) | payer MEDICAID ==
[~2021-11-28] VITALS: Ht 167.6 cm; Wt 65.8 kg
--- NOTE | 2021-11-28 21:25 | NUR ---
KAYLIE C/O SI WITH PLAN TO RUN INTO TRAFFIC S/P MOTHER VOL PSYCH ADMIT. PT A/OX3. TOLERATING R/A WELL WITH NO SOB. SAFETY 1:[address]
--- NOTE | 2021-11-28 22:54 | NUR ---
LAB AT BEDSIDE
[2021-11-28 22:58] LABS: BASOPHILS # (AUTO) 0.1 K/uL (0.0-0.2); BASOPHILS % (AUTO) 0.8 % (0.0-2.0); EOSINOPHILS % (AUTO) 2.6 % (0.0-6.0); HEMATOCRIT 41 % (39-51); HEMOGLOBIN 13.8 g/dL (13.5-17.5); LYMPHOCYTES # (AUTO) 1.6 K/uL (0.8-4.8); LYMPHOCYTES % (AUTO) 25.5 % (20.0-44.0); MEAN CORPUSCULAR HGB CONC 34 g/dl (31.0-36.0); MEAN CORPUSCULAR VOLUME 100 fL (80-96); MONOCYTES % (AUTO) 16.2 % (2.0-12.0); NEUTROPHILS # (AUTO) 3.4 K/uL (1.8-8.9); NEUTROPHILS % (AUTO) 54.9 % (43.0-81.0); PLATELET COUNT (AUTO) 267 K/uL (150-450); RED BLOOD CELL COUNT(AUTO) 4.08 MIL/uL (4.5-6.0); WHITE BLOOD COUNT (AUTO) 6.2 K/uL (4.3-11.0)
--- NOTE | 2021-11-28 23:00 | NUR ---
COVID ANTIGEN SWAB COLLECTED AND SENT TO LAB. OFFERED URINE CUP; WILL F/U WITH URINE SAMPLE
[2021-11-28 23:14] LABS: ALANINE AMINOTRANSFERASE 26 U/L (12-78); ALBUMIN 3.8 g/dL (3.4-5.0); ALCOHOL, BLOOD < 3 mg/dL (0-0); ALKALINE PHOSPHATASE 66 U/L (46-116); ASPARTATE AMINOTRANSFERASE 16 U/L (15-37); BILIRUBIN,DIRECT 0.1 mg/dL (0.0-0.2); BILIRUBIN,TOTAL 0.4 mg/dL (0.2-1.0); CALCIUM, SERUM 9.5 mg/dL (8.5-10.1); CARBON DIOXIDE 31 mmol/L (21-32); CHLORIDE 101 mmol/L (98-107); GLUCOSE 91 mg/dL (74-106); POTASSIUM 3.7 mmol/L (3.5-5.1); SODIUM SERUM 139 mmol/L (136-145); UREA NITROGEN, BLOOD 22 mg/dL (7-18)
[2021-11-28 23:38] LABS: ACETAMINOPHEN < 2 ug/ml (10-30)
--- NOTE | 2021-11-28 23:55 | NUR ---
URINE COLLECTED AND SENT TO LAB
[2021-11-29 00:42] LABS: BILIRUBIN,URINE NEGATIVE (NEGATIVE); COLOR,URINE YELLOW (YELLOW); LEUKOCYTE ESTERASE ,URINE NEGATIVE (NEGATIVE); NITRITE, URINE NEGATIVE (NEGATIVE); PROTEIN,URINE NEGATIVE (NEGATIVE); UGLUCOSE NEGATIVE (NEGATIVE); UROBILINOGEN,URINE 0.2 EU/dL (0.2)
[2021-11-29 01:11] LABS: BACTERIA,URINE None seen /HPF (None Seen); MUCUS,URINE Few /LPF (None Seen); SQUAMOUS EPITHELIAL CELL,UR Few /HPF (None Seen); WBC,URINE 0-2 /HPF (0-3)
--- NOTE | 2021-11-29 03:03 | NUR ---
FACESHEET AND CLINICALS FAXED TO [facility].
[2021-11-29 03:42] LABS: BAND % (MANUAL) 2 % (0.0-5.0); EOSINOPHILS % (MANUAL) 2 % (0-4); LYMPHOCYTES % (MANUAL) 28 % (16-48); MONOCYTES % (MANUAL) 19 % (0-11.0); NEUTROPHILS % (MANUAL) 49 (42-76)
--- NOTE | 2021-11-29 04:25 | NUR ---
ACCEPTED TO [facility] TO DR. LINDQUIST. ROOM IS IN UNIT 2, SPECIFIC ROOM NOT ASSIGNED. NEED TO CALL TO GIVE REPORT TO
--- NOTE | 2021-11-29 04:29 | NUR ---
[facility] CALLED FOR TRANSPORT. ETA 0700
[2021-11-29 05:00] VITALS: BP 124/64
--- NOTE | 2021-11-29 05:51 | NUR ---
REPORT GIVEN TO ASHANTI WATSON FOR CONTINUATION OF CARE.
--- NOTE | 2021-11-29 07:12 | NUR ---
REPORT GIVEN TO EMS AT BEDSIDE
--- NOTE | 2021-11-29 10:21 | NUR ---
REPORT GIVEN TO WALTER SHEARER OF [facility].
== END 2021-11-29 07:20 ==
LOC: ER 21:07
DX: R45.851 Suicidal ideations (principal); Z20.822 Contact with and (suspected) exposure to COVID-19; G62.9 Polyneuropathy, unspecified; F32.9 Major depressive disorder, single episode, unspecified; M19.90 Unspecified osteoarthritis, unspecified site; M79.7 Fibromyalgia; F17.200 Nicotine dependence, unspecified, uncomplicated; Z88.8 Allergy status to other drugs, medicaments and biological substances; Z60.2 Problems related to living alone; Z79.899 Other long term (current) drug therapy
CPT/HCPCS: 36415; 80048; 80076; 80143; 80307; 80320; 81001; 85007; 85025; 87426; 99285; C9803; G0480

== ENCOUNTER 2022-01-07 11:34 | Emergency (ER) | payer MEDICAID ==
[~2022-01-07] VITALS: Ht 172.7 cm; Wt 58.5 kg
--- NOTE | 2022-01-07 11:45 | NUR ---
called in ED waiting room. no response.
--- NOTE | 2022-01-07 12:10 | NUR ---
PT SELF PRESENTS TO ED C/O SUICIDAL IDEATIONS FOR "COUPLE OF DAYS W/ PLAN TO "OVERDOSE ON COCAINE." DENIES HI. PT SEEN IN ED MULTIPLE TIMES FOR SAME COMPLAINTS. PT IS REQUESTING VOLUNTARY PSYCH ADMISSION TO [facility]. STABLE VITALS ON TRIAGE. AWAITING MD MURRAY.
--- NOTE | 2022-01-07 12:11 | NUR ---
Yara polanco in [place] - 01/07/22 at 1622 by ARJUN URINE COLLECTED, COVID ANTIGEN SWAB DONE AND SENT TO THE LAB
--- NOTE | 2022-01-07 12:11 | NUR ---
COVID ANTIGEN SWAB DONE AND SENT TO THE LAB
--- NOTE | 2022-01-07 12:38 | NUR ---
DR LARES AT BEDSIDE FOR EVAL.
--- NOTE | 2022-01-07 13:05 | NUR ---
[employer] HELPER AT BEDSIDE FOR BLOOD DRAW.
[2022-01-07 13:18] LABS: BASOPHILS % (AUTO) 0.5 % (0.0-2.0); EOSINOPHILS % (AUTO) 2.8 % (0.0-6.0); HEMATOCRIT 40 % (39-51); HEMOGLOBIN 13.4 g/dL (13.5-17.5); LYMPHOCYTES # (AUTO) 0.8 K/uL (0.8-4.8); MEAN CORPUSCULAR HGB CONC 33 g/dl (31.0-36.0); MEAN CORPUSCULAR VOLUME 97 fL (80-96); MONOCYTES # (AUTO) 0.7 K/uL (0.1-1.30); MONOCYTES % (AUTO) 7.2 % (2.0-12.0); NEUTROPHILS # (AUTO) 7.6 K/uL (1.8-8.9); NEUTROPHILS % (AUTO) 80.5 % (43.0-81.0); PLATELET COUNT (AUTO) 189 K/uL (150-450); RED BLOOD CELL COUNT(AUTO) 4.13 MIL/uL (4.5-6.0); WHITE BLOOD COUNT (AUTO) 9.4 K/uL (4.3-11.0)
[2022-01-07 13:35] LABS: ALANINE AMINOTRANSFERASE 41 U/L (12-78); ALBUMIN 3.8 g/dL (3.4-5.0); ALCOHOL, BLOOD < 3 mg/dL (0-0); ALKALINE PHOSPHATASE 77 U/L (46-116); ASPARTATE AMINOTRANSFERASE 29 U/L (15-37); BILIRUBIN,DIRECT 0.2 mg/dL (0.0-0.2); BILIRUBIN,TOTAL 0.3 mg/dL (0.2-1.0); CALCIUM, SERUM 9.2 mg/dL (8.5-10.1); CARBON DIOXIDE 34 mmol/L (21-32); CHLORIDE 101 mmol/L (98-107); CREATININE 1.2 mg/dL (0.6-1.3); GLUCOSE 108 mg/dL (74-106); POTASSIUM 3.6 mmol/L (3.5-5.1); SODIUM SERUM 140 mmol/L (136-145); TOTAL PROTEIN, SERUM 7.8 g/dL (6.4-8.2); UREA NITROGEN, BLOOD 20 mg/dL (7-18)
[2022-01-07 13:37] LABS: ACETAMINOPHEN < 2 ug/ml (10-30)
--- NOTE | 2022-01-07 14:06 | NUR ---
FAXED CLINICALS TO [facility] INTAKE.
--- NOTE | 2022-01-07 18:29 | NUR ---
ACCEPTED AT [facility] UNDER DR LINDQUIST NUMBER FOR REPORT [phone] SO TO ARRANGE TRANSPORT
--- NOTE | 2022-01-07 18:33 | NUR ---
[facility] CALLED FOR TRANSPORT ETA 60 MINS PER RAMON.
--- NOTE | 2022-01-07 18:43 | NUR ---
REPORT GIVEN TO NURSING JUANITA RAO FROM [facility] CEL[facility].
[2022-01-07 18:59] LABS: BILIRUBIN,URINE NEGATIVE (NEGATIVE); COLOR,URINE YELLOW (YELLOW); LEUKOCYTE ESTERASE ,URINE NEGATIVE (NEGATIVE); NITRITE, URINE NEGATIVE (NEGATIVE); PROTEIN,URINE NEGATIVE (NEGATIVE); UGLUCOSE NEGATIVE (NEGATIVE)
[2022-01-07 19:11] LABS: BACTERIA,URINE None seen /HPF (None Seen); SQUAMOUS EPITHELIAL CELL,UR Few /HPF (None Seen)
[2022-01-07 19:12] LABS: MUCUS,URINE Few /LPF (None Seen); URINE AMORPHOUS URATE Few /HPF (None Seen)
[2022-01-07 19:16] VITALS: BP 134/84
--- NOTE | 2022-01-07 19:16 | NUR ---
REPORT GIVEN TO AMBULANCE STAFF
== END 2022-01-07 19:17 ==
LOC: ER 11:35
DX: R45.851 Suicidal ideations (principal); F31.9 Bipolar disorder, unspecified; M79.7 Fibromyalgia; G62.9 Polyneuropathy, unspecified; Z79.899 Other long term (current) drug therapy; Z20.822 Contact with and (suspected) exposure to COVID-19; Z59.00 Homelessness unspecified
CPT/HCPCS: 36415; 80048; 80076; 80143; 80307; 80320; 81001; 85025; 87426; 99285; C9803; G0480

== ENCOUNTER 2022-01-22 04:20 | Emergency (ER) | payer MEDICAID ==
[~2022-01-22] VITALS: Ht 172.7 cm; Wt 60.3 kg
--- NOTE | 2022-01-22 05:19 | NUR ---
BIBS. TO ER BED 18. AAOX4. NOT IN RESP DISTRESS. AMBULATORY WITHA FRONT WHEELED WALKER. CAME IN FOR SUICIDIAL IDEATION W/ PLAN TO RUN INTO TRAFFIC. DENIES HI. DENIES HALLUCIANTIONS. PT IS SEEKING VOLUNTARY ADMISSION. PT STATES IT HASNT BEEN A GOOD MONTH. PT GOWN, BELONGINGS IN LOCKER AND SITTER WITHIN SIGHT. MD WAS AT THE BEDSIDE. URINE COLLECTED AND COVID SWAB DONE.
[2022-01-22 05:36] LABS: BASOPHILS % (AUTO) 0.5 % (0.0-2.0); HEMATOCRIT 38 % (39-51); HEMOGLOBIN 12.6 g/dL (13.5-17.5); LYMPHOCYTES # (AUTO) 1.3 K/uL (0.8-4.8); LYMPHOCYTES % (AUTO) 23.9 % (20.0-44.0); MEAN CORPUSCULAR HGB CONC 34 g/dl (31.0-36.0); MEAN CORPUSCULAR VOLUME 100 fL (80-96); MONOCYTES # (AUTO) 0.6 K/uL (0.1-1.30); MONOCYTES % (AUTO) 10.7 % (2.0-12.0); NEUTROPHILS # (AUTO) 3.4 K/uL (1.8-8.9); NEUTROPHILS % (AUTO) 61.9 % (43.0-81.0); PLATELET COUNT (AUTO) 229 K/uL (150-450); RED BLOOD CELL COUNT(AUTO) 3.76 MIL/uL (4.5-6.0); WHITE BLOOD COUNT (AUTO) 5.5 K/uL (4.3-11.0)
[2022-01-22 05:50] LABS: ALANINE AMINOTRANSFERASE 33 U/L (12-78); ALBUMIN 4.1 g/dL (3.4-5.0); ALCOHOL, BLOOD < 3 mg/dL (0-0); ALKALINE PHOSPHATASE 73 U/L (46-116); ASPARTATE AMINOTRANSFERASE 21 U/L (15-37); BILIRUBIN,DIRECT 0.1 mg/dL (0.0-0.2); BILIRUBIN,TOTAL 0.3 mg/dL (0.2-1.0); CALCIUM, SERUM 9.6 mg/dL (8.5-10.1); CARBON DIOXIDE 30 mmol/L (21-32); CHLORIDE 102 mmol/L (98-107); CREATININE 1.2 mg/dL (0.6-1.3); GLUCOSE 116 mg/dL (74-106); POTASSIUM 3.8 mmol/L (3.5-5.1); SODIUM SERUM 139 mmol/L (136-145); TOTAL PROTEIN, SERUM 7.6 g/dL (6.4-8.2); UREA NITROGEN, BLOOD 23 mg/dL (7-18)
[2022-01-22 06:16] LABS: ACETAMINOPHEN < 2 ug/ml (10-30)
[2022-01-22 08:00] LABS: BILIRUBIN,URINE NEGATIVE (NEGATIVE); COLOR,URINE DARK YELLOW (YELLOW); LEUKOCYTE ESTERASE ,URINE NEGATIVE (NEGATIVE); NITRITE, URINE NEGATIVE (NEGATIVE); PROTEIN,URINE NEGATIVE (NEGATIVE); UGLUCOSE NEGATIVE (NEGATIVE)
[2022-01-22 09:01] LABS: BACTERIA,URINE None seen /HPF (None Seen); CALCIUM OXALATE CRYSTALS,UR Moderate /HPF (None Seen); SQUAMOUS EPITHELIAL CELL,UR Few /HPF (None Seen); WBC,URINE 0-2 /HPF (0-3)
--- NOTE | 2022-01-22 10:36 | NUR ---
SAY faxed clincials to [facility] [[facility] [place] [address] FAX:[phone]] for inpatient psychiatric treatment.
--- NOTE | 2022-01-22 11:59 | NUR ---
SS Consult: SS Consult requested for homelessness, drug abuse & SI. The pt. is a 58 -year old Black male patient who presented to the ED due SI. Upon SS consult, the pt. is Alert & Oriented x 4 and makes poor eye contact. Pt. refused to take covers off his face.The pt. appears unkempt. Pt.'s speech is clear and has depressed mood and affect. SAY explored pt.'s living situation. Per pt. he has been experiencing homelessness for "2 years". SAY explored pt.'s drug & ETOH use. Pt. states he uses "crack cocaine". SAY explored pt.'s mental health Hx. Pt. denies any known psychiatric diagnosis. Pt. states he is currently having SI that began about 2 days ago and has a plan to "get run over by a car". Pt. states he also experiencing auditory hallucination and "can't make out what they say". Pt. denies current HI and denies hallucinations. Per pt., he is currently ambulatory but in pain & independent with all his ADL's. SAY explored pt.'s support system. Pt. states he has "no support". Plan: Pt. has already been referred to [facility] [[facility] [place] [address] FAX:[phone]] for inpatient psychiatric treatment. Pt. SAY provided pt. with homeless resources and pt. accepted them. Pt. signed homeless waiver and it was placed in the chart. SAY provided pt. witht he following mental healt, addiction & homelessness resources and pt. accepted them: Year-round shelters: [facility] [place] [address] [place] [address] ; [facility] [place] [address] [place] [address]; [facility] Qwenfnu5038 [facility] [address] Winter Shelters: SPA 2 | [facility] [place]: Jessica [place] Address: Confidential (call for location ) Population Served: Coed # of Beds: 57 SPA 4 | [facility] Provider: Home at Last Address: [address] [facility], [address] # of Beds: 49 Population Served: Coed SPA 6 | [facility] Provider: Home at Last Address: [address] [facility], [address] # of Beds: 49 Population Served: Coed Juliocesar Glover [facility] Provider: Syed Glover [place] Address: [address] [facility] [address] # of Beds: 20 Population Served: Women MARIE Facility Provider: Home at Last Address: [address] [facility] [address] # of Beds: 30 Population Served: Women SPA 8 | [facility] Library Provider: Brayan chang [place] Address: 0063 Critical access hospital [address] # of Beds: 65 Population Served: Coed Hygiene: [place] [facility]: [address] [facility] ; [place] [facility] [address] [facility] ; [facility] 2193 [facility] . Food Resources: [place] Food Pant[facility] at [facility]- 5700 [facility]; Meet Each Need with Dignity ([facility]) [address] [facility]; [facility] Food Pantry 4326 [facility]; [facility] [address] [facility]. Mental Health resources provided: [facility] [address] [place] [address] ; [facility], Inc[facility] [address] [facility] [address], [place] [address] ; [facility] Mental [facility] Urgent [facility] [address] [place] [address] ; [place] [facility] [place] [address] Healthcare Clinics: [facility] 6551 [facility], [address] [place]. [place] ; [facility] [address] [facility] [address] [place] [address]; [facility] [address] [place] [phone]) [phone] Counseling--Outpatient [facility] 4419 [facility] [place] [address] (Specializes in in-depth psychotherapy for emotional distress: anxiety, depression, interpersonal conflicts, life transitions, childhood abuse) [facility] [address] [place] [address] (Assist with solving problem marital difficulties, separation & divorce, aging parents, & grief, chronic & terminal illness) [facility] [address] [place] [address] (Deal with loss & grief, anxiety, marital difficulties) Homebound/Mental Health Services [address] [facility], [address] [place] [address] (Provide in-home mental services to people who are incapable of leaving their homes) Organization for Needs of the Elderly Senior Service/Resource Center [address] [facility] [place] [address] [facility] [address] [place] [address] PSYCHIATRIC OUTPATIENT SERVICES [facility] Partial Hospitalization and Intensive Outpatient Program (Managed Care and [place] Only)36744 [facility] [phone] [facility] Partial Hospitalization and Outpatient [id number] [facility] [address] [place], [place] [phone] Critical access hospital Mental Health Center Kvl01469 [facility] [address] [place], [place] [phone] [facility] Partial Hospitalization and Outpatient [id number] Emeli[place]rient, [phone] Substance Abuse resources provided included: [facility] Substance Abuse Self-Helpline ([facility]) ; CRI -HELP [address]39 [facility]. [place] 916t[address] ; [facility] [address] [facility] [address] ; [facility] [address] [facility]. [place] [phone] ; [facility] [place] [address] [facility] [phone] ; [facility] 4940 [facility] [address] ; [facility]ically [facility] 909 [facility] [phone] ; [facility] Substance Abuse Helpline([facility] ; [facility] ; [facility] [place]; [facility]; Cri-Help [place]; I-ADARP Inter Agency Drug Abuse Recovery [place]; [facility] Signal Women's Recovery [place]; [facility] [place]; [facility]; [facility], [facility] [place]; Alcoholics Anonymous -SFV; Ra-Rmzr-Tvntvfy ; Marijuana Anonymous -SFV; Narcotics Anonymous www.na.org;
--- NOTE | 2022-01-22 12:23 | NUR ---
LUNCH TRAY PROVIDED.
--- NOTE | 2022-01-22 12:33 | NUR ---
PT WANTS TO STAY AT THE WAITING ROOM INSTEAD OF RM 18. PT FELT CLAUSTROPHOBIC. RECREATION ENGINEER AVANI ALLOWED PATIENT.
--- NOTE | 2022-01-22 16:30 | NUR ---
CALLED INTAKE PT ACCEPTED TO UNDER DR. LINDQUIST & DEEPALI [phone] X [phone] FOR REPORT.
[2022-01-22 17:42] VITALS: BP 108/54
--- NOTE | 2022-01-22 17:43 | NUR ---
PT TRANSPORTED TO [facility] IN STABLE CONDITION.
== END 2022-01-22 17:45 ==
LOC: ER 04:26
DX: R45.851 Suicidal ideations (principal); D53.9 Nutritional anemia, unspecified; Z20.822 Contact with and (suspected) exposure to COVID-19; F31.9 Bipolar disorder, unspecified; G62.9 Polyneuropathy, unspecified; M79.7 Fibromyalgia; F17.200 Nicotine dependence, unspecified, uncomplicated; R82.5 Elevated urine levels of drugs, medicaments and biological substances; Z79.899 Other long term (current) drug therapy
CPT/HCPCS: 36415; 80048; 80076; 80143; 80307; 80320; 81001; 85025; 87426; 99285; C9803; G0480

== ENCOUNTER 2022-02-01 16:24 | Emergency (ER) | payer MEDICAID ==
[~2022-02-01] VITALS: Ht 172.7 cm; Wt 63.0 kg
--- NOTE | 2022-02-01 16:55 | NUR ---
CAMILA OF RT LEG DONE AT BEDSIDE
--- NOTE | 2022-02-01 17:00 | NUR ---
BILATERAL FOOT PAIN WORST ON THE RIGHT FOOT X 1 WEEK. PATIENT IS ALERT ORIENTED X4. VITALS CHECKED AND PLACED IN BED
--- NOTE | 2022-02-01 20:30 | NUR ---
PATIENT FOR DISCHARGED. PATIENT VERBALIZES THAT HE FEELING SUICIDAL WITH PLAN OF RUN INTO TRAFFIC. MD MADE AWARE. PATIENT'S BELONGING PLACED IN PLASTIC BAG. CHANGED INTO GOWN. SITTER WITHIN SITE. URINE STILL PENDING.
--- NOTE | 2022-02-01 20:32 | NUR ---
PATIENT IS SEEKING VOLUNTARY ADMISSION TO [facility]. WILL COORDINATE WITH THEM
[2022-02-01 21:00] LABS: BASOPHILS % (AUTO) 0.6 % (0.0-2.0); EOSINOPHILS % (AUTO) 2.4 % (0.0-6.0); HEMATOCRIT 39 % (39-51); HEMOGLOBIN 12.8 g/dL (13.5-17.5); LYMPHOCYTES # (AUTO) 1.3 K/uL (0.8-4.8); LYMPHOCYTES % (AUTO) 24.9 % (20.0-44.0); MEAN CORPUSCULAR HGB CONC 33 g/dl (31.0-36.0); MEAN CORPUSCULAR VOLUME 99 fL (80-96); MONOCYTES # (AUTO) 0.9 K/uL (0.1-1.30); MONOCYTES % (AUTO) 16.7 % (2.0-12.0); NEUTROPHILS # (AUTO) 2.9 K/uL (1.8-8.9); NEUTROPHILS % (AUTO) 55.4 % (43.0-81.0); PLATELET COUNT (AUTO) 172 K/uL (150-450); RED BLOOD CELL COUNT(AUTO) 3.89 MIL/uL (4.5-6.0); WHITE BLOOD COUNT (AUTO) 5.2 K/uL (4.3-11.0)
[2022-02-01 21:20] LABS: EOSINOPHILS % (MANUAL) 3 % (0-4); LYMPHOCYTES % (MANUAL) 25 % (16-48); MONOCYTES % (MANUAL) 14 % (0-11.0); NEUTROPHILS % (MANUAL) 58 (42-76)
--- NOTE | 2022-02-01 21:28 | NUR ---
URINE COLLECTED AND SENT TO LAB
[2022-02-01 21:41] LABS: ALANINE AMINOTRANSFERASE 27 U/L (12-78); ALBUMIN 3.3 g/dL (3.4-5.0); ALCOHOL, BLOOD < 3 mg/dL (0-0); ALKALINE PHOSPHATASE 56 U/L (46-116); ASPARTATE AMINOTRANSFERASE 19 U/L (15-37); BILIRUBIN,DIRECT 0.1 mg/dL (0.0-0.2); BILIRUBIN,TOTAL 0.4 mg/dL (0.2-1.0); CALCIUM, SERUM 8.3 mg/dL (8.5-10.1); CARBON DIOXIDE 30 mmol/L (21-32); CHLORIDE 106 mmol/L (98-107); GLUCOSE 92 mg/dL (74-106); POTASSIUM 3.6 mmol/L (3.5-5.1); SODIUM SERUM 140 mmol/L (136-145); TOTAL PROTEIN, SERUM 6.7 g/dL (6.4-8.2); UREA NITROGEN, BLOOD 15 mg/dL (7-18)
[2022-02-01 22:05] LABS: BILIRUBIN,URINE NEGATIVE (NEGATIVE); COLOR,URINE YELLOW (YELLOW); LEUKOCYTE ESTERASE ,URINE NEGATIVE (NEGATIVE); NITRITE, URINE NEGATIVE (NEGATIVE); PH,URINE 6.5 (5.0-8.0); PROTEIN,URINE NEGATIVE (NEGATIVE); UGLUCOSE NEGATIVE (NEGATIVE)
[2022-02-01 22:18] LABS: BACTERIA,URINE None seen /HPF (None Seen); WBC,URINE 0-2 /HPF (0-3)
--- NOTE | 2022-02-02 02:00 | NUR ---
FAXED FACE SHEET AND CLINICALS TO [facility]
--- NOTE | 2022-02-02 05:13 | NUR ---
KOLTON AT [facility] HAS REC'D THE FAX. CONFIRMED
--- NOTE | 2022-02-02 09:01 | NUR ---
CALLED SO ANNMARIE CELAYA FOR UPDATE REGARDING PT ACCEPTANCE AND WAS NOTIFIED THAT CLINICAL PACKET WAS RECEIEVED. NOW AWAITING FEEDBACK FROM WHEEL MILL OPERATOR.
--- NOTE | 2022-02-02 15:30 | NUR ---
CALLED [facility] AND SET UP BLS TRANSPORT ETA 1600
--- NOTE | 2022-02-02 15:33 | NUR ---
SO ANNMARIE CELAYA CALLED ABOUT PT ACCEPTANCE UNDER THE CARE OF DR. LINDQUIST NUMBER FOR REPORT [phone]
[2022-02-02 16:22] VITALS: BP 121/56
--- NOTE | 2022-02-02 16:51 | NUR ---
PATIENT PICKED UP BY [facility] IN STABLE CONDITION. ALL BELONGINGS GIVEN BACK TO PATIENT.
--- NOTE | 2022-02-02 16:58 | NUR ---
REPORT GIVEN TO MARGRET WATSON OF [facility]
== END 2022-02-02 17:00 ==
LOC: ER 16:25
DX: R45.851 Suicidal ideations (principal); M79.671 Pain in right foot; F17.200 Nicotine dependence, unspecified, uncomplicated; M79.7 Fibromyalgia; F31.9 Bipolar disorder, unspecified; G62.9 Polyneuropathy, unspecified; Z79.899 Other long term (current) drug therapy; Z20.822 Contact with and (suspected) exposure to COVID-19; Z59.00 Homelessness unspecified
CPT/HCPCS: 36415; 80048; 80076; 80143; 80307; 80320; 81001; 85007; 85025; 87426; 93926; 99285; C9803; G0480

== ENCOUNTER 2022-02-12 21:07 | Emergency (ER) | payer MEDICAID ==
--- NOTE | 2022-02-12 22:55 | NUR ---
PATIENT LEFT WITHOUT BEING SEEN
== END 2022-02-12 22:56 | disposition left against medical advice (07) ==
LOC: ER 21:11
DX: Z53.21 Procedure and treatment not carried out due to patient leaving prior to being seen by health care provider (principal)

== ENCOUNTER → 2022-02-12 | Emergency (ER) | payer MEDICAID ==
--- NOTE | 2022-02-12 13:05 | NUR ---
Called - Refused to come in states " I will get my stuff together first"
--- NOTE | 2022-02-12 13:30 | NUR ---
Called States "I want to go smoke first"
--- NOTE | 2022-02-12 14:03 | NUR ---
Called No response
== END | disposition home or self-care (01) ==
LOC: ER 13:07
DX: Z53.21 Procedure and treatment not carried out due to patient leaving prior to being seen by health care provider (principal)

== ENCOUNTER 2022-02-19 05:45 | Emergency (ER) | payer MEDICAID ==
[~2022-02-19] VITALS: Ht 167.6 cm; Wt 63.5 kg
--- NOTE | 2022-02-19 06:29 | NUR ---
PT BISELF C/O OF LOWER EXTREMITY PAIN AND SWELLING. PT A/O, RR EVEN AND UNLABORED, NO ACUTE DISTRESS NOTED. PT VSS. PATIEN TAKEN TO ER BED 13. MONITORS CONNECTED. WILL CONTINUE TO MONITOR.
--- NOTE | 2022-02-19 06:30 | NUR ---
OFFER PT URINAL; NO URINE OUTPUT NOTED AT THIS TIME. WILL F/U
--- NOTE | 2022-02-19 06:34 | NUR ---
COVID ANTIGEN SWAB COLLECTED AND SENT TO LAB
[2022-02-19 06:37] LABS: BASOPHILS # (AUTO) 0.1 K/uL (0.0-0.2); BASOPHILS % (AUTO) 0.9 % (0.0-2.0); EOSINOPHILS % (AUTO) 2.6 % (0.0-6.0); HEMATOCRIT 37 % (39-51); HEMOGLOBIN 12.5 g/dL (13.5-17.5); LYMPHOCYTES # (AUTO) 1.2 K/uL (0.8-4.8); LYMPHOCYTES % (AUTO) 20.3 % (20.0-44.0); MEAN CORPUSCULAR HGB CONC 34 g/dl (31.0-36.0); MEAN CORPUSCULAR VOLUME 98 fL (80-96); MONOCYTES # (AUTO) 0.8 K/uL (0.1-1.30); MONOCYTES % (AUTO) 13.1 % (2.0-12.0); NEUTROPHILS # (AUTO) 3.7 K/uL (1.8-8.9); NEUTROPHILS % (AUTO) 63.1 % (43.0-81.0); PLATELET COUNT (AUTO) 250 K/uL (150-450); WHITE BLOOD COUNT (AUTO) 5.9 K/uL (4.3-11.0)
[2022-02-19 06:52] LABS: CALCIUM, SERUM 9.1 mg/dL (8.5-10.1); CARBON DIOXIDE 31 mmol/L (21-32); CHLORIDE 106 mmol/L (98-107); CREATININE 0.9 mg/dL (0.6-1.3); GLUCOSE 87 mg/dL (74-106); POTASSIUM 3.9 mmol/L (3.5-5.1); SODIUM SERUM 140 mmol/L (136-145); UREA NITROGEN, BLOOD 16 mg/dL (7-18)
[2022-02-19 06:54] LABS: ALANINE AMINOTRANSFERASE 25 U/L (12-78); ALBUMIN 3.3 g/dL (3.4-5.0); ALCOHOL, BLOOD < 3 mg/dL (0-0); ALKALINE PHOSPHATASE 66 U/L (46-116); ASPARTATE AMINOTRANSFERASE 17 U/L (15-37); BILIRUBIN,DIRECT 0.1 mg/dL (0.0-0.2); BILIRUBIN,TOTAL 0.3 mg/dL (0.2-1.0); TOTAL PROTEIN, SERUM 6.9 g/dL (6.4-8.2)
[2022-02-19 06:56] LABS: ACETAMINOPHEN < 10 ug/ml (10-30)
[2022-02-19 11:28] LABS: BILIRUBIN,URINE NEGATIVE (NEGATIVE); COLOR,URINE YELLOW (YELLOW); LEUKOCYTE ESTERASE ,URINE NEGATIVE (NEGATIVE); NITRITE, URINE NEGATIVE (NEGATIVE); PROTEIN,URINE NEGATIVE (NEGATIVE); UGLUCOSE NEGATIVE (NEGATIVE)
--- NOTE | 2022-02-19 11:35 | NUR ---
SS Consult: SS Consult requested for homelessness & SI. The pt. is a 61- year old Black male who presents to ED with C/O continued right lower extremity pain per EMR. Per EMR, patient has HX. of PVD, arthritis, fibromyalgia, neuropathy, homeless, psychiatric illnesses including bipolar and depression. The pt. appears unkempt is A&O X4 and makes poor eye contact. Pt.'s mood is dysphoric with depressed affect. Pt. states he has SI without a plan and denies HI. Pt. denies auditory and visual Hallucinations. SAY offered pt. voluntary admission to a psych facility for treatment and pt. is agreeable. SAY explored pt.'s mental health Hx. Pt. states he has been diagnosed in the past with bipolar Disorder and depression. SAY explored pt.'s living situation. Pt. admits he has been experiencing homelessness for "a long time". SAY explored pt.'s drug & ETOH use. Patient did not answer my question. Pt. is ambulatory and independent with ADL's. SAY explored pt.'s support system. Pt. states he has no support system. Plan: SW will be referrEd [facility] for inpatient psychiatric treatment. Pt. refused signed homeless waiver and it was placed in the chart. SAY provided pt. with homeless, and mental health resources and he refused them : Year-round shelters: [facility] [place] [address] [place], [place] [phone] ; [facility] [place] [address] [place] [address]; [facility] Mmernhn5989 [facility] [address] Winter Shelters: SPA 2 | [facility] David[facility]: [facility] Address: Confidential (call for location ) Population Served: Coed # of Beds: 57 SPA 4 | [facility] Provider: Home at Last Address: [address] [place] [address] # of Beds: 49 Population Served: Coed SPA 6 | [facility] Provider: Home at Last Address: [address] [place] [address] # of Beds: 49 Population Served: Coed Juliocesar Glover Women's Mcfp Provider: Syed JULIO Address: [address] [facility] [address] # of Beds: 20 Population Served: Women MARIE Facility Provider: Home at Last Address: [address]. [facility] [address] # of Beds: 30 Population Served: Women SPA 8 | [facility] Library Provider: Brayan of Barbara Address: 6636 [facility] [address] # of Beds: 65 Population Served: Coed Hygiene: [place] [facility]: [address] [facility] ; [place] [facility] [address] [facility] ; [facility] 6903 [facility] . Food Resources: [place] Food Pantry at [facility]- 5700 [facility]; Meet Each Need with Dignity ([facility]) [address] [facility]; [facility] Food Pantry 5193 [facility]; [facility] 8571 [facility]. Mental Health resources provided: [facility] [address] [place], [place] [phone] ; [facility] Mental Health Clio, Inc. [address] [facility] [address], [place], [place] [phone] ; Karma Colon [facility] Mental Health Urgent Care Center [address] [place] [address] ; [facility] [address] [place], [place] [phone] Healthcare Clinics: [facility] 6551 [facility], [address] [place] [employer]. [place] ; [facility] 6801 [facility] [address] [place] [address]; [facility] [address] [facility] [place] [address] 425) [phone] Counseling--Outpatient [facility] [address] [place], [place] [address] (Specializes in in-depth psychotherapy for emotional distress: anxiety, depression, interpersonal conflicts, life transitions, childhood abuse) [facility] Guidance Center [address] [place], [place] [phone] (Assist with solving problem marital difficulties, separation & divorce, aging parents, & grief, chronic & terminal illness) [facility] [address] [place] [address] (Deal with loss & grief, anxiety, marital difficulties) Homebound/Mental Health Services [address] [facility] [address] [place] [address] (Provide in-home mental services to people who are incapable of leaving their homes) Organization for Needs of the Elderly Senior Service/Resource Center [address] [place] [address] [facility] [address]14 [place] [address] PSYCHIATRIC OUTPATIENT SERVICES [facility] Partial Hospitalization and Intensive Outpatient Program (Managed Care and [place] Only)[address]199 [facility] [phone] [facility] Partial Hospitalization and Outpatient [id number] Psychiatric [address] [place], [place] [phone] [facility] Center Htu58979 [facility] [address] [place], [place] [phone] [facility] Partial Hospitalization and Outpatient Gsvbljg24775 [place], [phone] Substance Abuse resources provided included: [facility] Substance Abuse Self-Helpline (SAS) ; CRI -HELP [address]92 [facility] 916t01 ; [facility] [address]203 [facility] [address] ; [facility] Rehabilitation Program 03396 Ha[facility]U [facility]. [facility] [address] ; [facility] 400 [facility] [address] ; [facility] 5760 Chace Luna [facility] [address] ; [facility]i [facility] 909 [facility] Bl[facility]irm[facility] [phone] ; [facility] Substance Abuse Helpline([facility] ; [facility] Family Counseling ; [facility] [place]; Kassi [facility] [place]; Cri-Help [place]; I-ADARP Inter Agency Drug Abuse Recovery [place]ace [place]; [place] Women[facility] Medicine [place]; [facility]; [facility]; [facility]'s Clio, Inc. [place]; Alcoholics Anonymous -SFV; Qd-Ysjt-Rxncxou ; Marijuana Anonymous -SFV; Narcotics Anonymous www.na.org;
[2022-02-19 11:47] LABS: BACTERIA,URINE Rare /HPF (None Seen); SQUAMOUS EPITHELIAL CELL,UR 0-2 /HPF (None Seen); WBC,URINE NONE SEEN /HPF (0-3)
--- NOTE | 2022-02-19 12:16 | NUR ---
SAY faxed clinicals to [facility] [[address] [place] [address] FAX:[phone]] for voluntary psychiatric treatment.
--- NOTE | 2022-02-19 14:43 | NUR ---
Accepted at [facility], number for report, [phone] Jorgnesen accepting
--- NOTE | 2022-02-19 15:58 | NUR ---
[facility] CALLED FOR TRANSPORT ETA [phone]
--- NOTE | 2022-02-19 16:22 | NUR ---
Report given to linda WATSON.
--- NOTE | 2022-02-19 18:00 | NUR ---
DINNER PROVIDED. THE PATIENT HERO PROVIDED MEAL WELL.
--- NOTE | 2022-02-19 18:12 | NUR ---
[facility] at bedside to picket labor union the patient going to [place].
[2022-02-19 18:26] VITALS: BP 125/61
--- NOTE | 2022-02-19 18:28 | NUR ---
Patient left in stable condition going to [facility] in no distress accompanied by 2 emt's.
== END 2022-02-19 18:28 ==
LOC: ER 06:17
DX: M79.604 Pain in right leg (principal); I73.9 Peripheral vascular disease, unspecified; R60.9 Edema, unspecified; G62.9 Polyneuropathy, unspecified; R45.851 Suicidal ideations; M79.7 Fibromyalgia; F31.9 Bipolar disorder, unspecified; Z79.899 Other long term (current) drug therapy; F14.10 Cocaine abuse, uncomplicated; Z20.822 Contact with and (suspected) exposure to COVID-19
CPT/HCPCS: 36415; 71045; 80048; 80076; 80143; 80307; 80320; 81001; 85025; 87426; 93971; 99285; C9803; G0480

== ENCOUNTER 2022-03-07 06:13 | Emergency (ER) | payer MEDICAID ==
[~2022-03-07] VITALS: Ht 167.6 cm; Wt 63.5 kg
[2022-03-07 07:00] LABS: BASOPHILS % (AUTO) 0.7 % (0.0-2.0); EOSINOPHILS % (AUTO) 2.5 % (0.0-6.0); HEMATOCRIT 41 % (39-51); HEMOGLOBIN 13.5 g/dL (13.5-17.5); LYMPHOCYTES # (AUTO) 1.7 K/uL (0.8-4.8); MEAN CORPUSCULAR HGB CONC 33 g/dl (31.0-36.0); MEAN CORPUSCULAR VOLUME 100 fL (80-96); MONOCYTES # (AUTO) 0.9 K/uL (0.1-1.30); NEUTROPHILS # (AUTO) 3.7 K/uL (1.8-8.9); NEUTROPHILS % (AUTO) 56.8 % (43.0-81.0); PLATELET COUNT (AUTO) 204 K/uL (150-450); RED BLOOD CELL COUNT(AUTO) 4.09 MIL/uL (4.5-6.0); WHITE BLOOD COUNT (AUTO) 6.5 K/uL (4.3-11.0)
[2022-03-07 07:07] LABS: CALCIUM, SERUM 9.4 mg/dL (8.5-10.1); CARBON DIOXIDE 32 mmol/L (21-32); CHLORIDE 103 mmol/L (98-107); CREATININE 0.9 mg/dL (0.6-1.3); GLUCOSE 80 mg/dL (74-106); POTASSIUM 4.1 mmol/L (3.5-5.1); SODIUM SERUM 138 mmol/L (136-145); UREA NITROGEN, BLOOD 17 mg/dL (7-18)
[2022-03-07 07:13] LABS: ALANINE AMINOTRANSFERASE 26 U/L (12-78); ALBUMIN 3.6 g/dL (3.4-5.0); ALCOHOL, BLOOD < 3 mg/dL (0-0); ALKALINE PHOSPHATASE 68 U/L (46-116); ASPARTATE AMINOTRANSFERASE 15 U/L (15-37); BILIRUBIN,DIRECT 0.1 mg/dL (0.0-0.2); BILIRUBIN,TOTAL 0.3 mg/dL (0.2-1.0); TOTAL PROTEIN, SERUM 7.1 g/dL (6.4-8.2)
[2022-03-07 07:19] LABS: ACETAMINOPHEN < 0 ug/ml (10-30)
[2022-03-07 11:01] LABS: BILIRUBIN,URINE NEGATIVE (NEGATIVE); COLOR,URINE YELLOW (YELLOW); LEUKOCYTE ESTERASE ,URINE NEGATIVE (NEGATIVE); NITRITE, URINE NEGATIVE (NEGATIVE); PROTEIN,URINE NEGATIVE (NEGATIVE); UGLUCOSE NEGATIVE (NEGATIVE); UROBILINOGEN,URINE 0.2 EU/dL (0.2)
[2022-03-08 11:15] VITALS: BP 127/77
== END 2022-03-08 12:00 ==
LOC: ER 06:18
DX: R45.851 Suicidal ideations (principal); F31.9 Bipolar disorder, unspecified; M79.7 Fibromyalgia; G62.9 Polyneuropathy, unspecified; Z79.899 Other long term (current) drug therapy; Z20.822 Contact with and (suspected) exposure to COVID-19
CPT/HCPCS: 36415; 80048; 80076; 80143; 80307; 80320; 81003; 85025; 87426; 99285; C9803; G0480

== ENCOUNTER 2022-03-19 19:33 | Emergency (ER) | payer MEDICAID ==
[~2022-03-19] VITALS: Ht 167.6 cm; Wt 63.5 kg
[2022-03-19 20:42] LABS: BASOPHILS # (AUTO) 0.1 K/uL (0.0-0.2); BASOPHILS % (AUTO) 0.8 % (0.0-2.0); EOSINOPHILS % (AUTO) 2.7 % (0.0-6.0); HEMATOCRIT 43 % (39-51); HEMOGLOBIN 14.2 g/dL (13.5-17.5); LYMPHOCYTES # (AUTO) 1.3 K/uL (0.8-4.8); LYMPHOCYTES % (AUTO) 18.7 % (20.0-44.0); MEAN CORPUSCULAR HGB CONC 33 g/dl (31.0-36.0); MEAN CORPUSCULAR VOLUME 99 fL (80-96); MONOCYTES # (AUTO) 1.1 K/uL (0.1-1.30); MONOCYTES % (AUTO) 16.7 % (2.0-12.0); NEUTROPHILS # (AUTO) 4.2 K/uL (1.8-8.9); NEUTROPHILS % (AUTO) 61.1 % (43.0-81.0); PLATELET COUNT (AUTO) 205 K/uL (150-450); WHITE BLOOD COUNT (AUTO) 6.8 K/uL (4.3-11.0)
[2022-03-19 21:50] LABS: EOSINOPHILS % (MANUAL) 5 % (0-4); LYMPHOCYTES % (MANUAL) 20 % (16-48); MONOCYTES % (MANUAL) 9 % (0-11.0); NEUTROPHILS % (MANUAL) 64 (42-76); REACTIVE LYMPHOCYTES 2 % (0-0)
[2022-03-19 21:52] LABS: CALCIUM, SERUM 9.9 mg/dL (8.5-10.1); CARBON DIOXIDE 34 mmol/L (21-32); CHLORIDE 102 mmol/L (98-107); CREATININE 0.9 mg/dL (0.6-1.3); GLUCOSE 96 mg/dL (74-106); POTASSIUM 4.2 mmol/L (3.5-5.1); SODIUM SERUM 142 mmol/L (136-145); UREA NITROGEN, BLOOD 24 mg/dL (7-18)
[2022-03-19 21:56] LABS: ALANINE AMINOTRANSFERASE 81 U/L (12-78); ALBUMIN 4.4 g/dL (3.4-5.0); ALCOHOL, BLOOD < 3 mg/dL (0-0); ALKALINE PHOSPHATASE 65 U/L (46-116); ASPARTATE AMINOTRANSFERASE 39 U/L (15-37); BILIRUBIN,DIRECT 0.1 mg/dL (0.0-0.2); BILIRUBIN,TOTAL 0.4 mg/dL (0.2-1.0); TOTAL PROTEIN, SERUM 8.5 g/dL (6.4-8.2)
[2022-03-19 22:15] LABS: ACETAMINOPHEN 0 ug/ml (10-30)
--- NOTE | 2022-03-19 23:21 | NUR ---
PATIENT STATES HE IS NO LONGER HAVING SUICIDAL IDEATION. NO LONGER WANTS VOLUNTARY ADMISSION. MADE AWARE.
[2022-03-19 23:22] VITALS: BP 136/76
== END 2022-03-19 23:23 | disposition home or self-care (01) ==
LOC: ER 19:37
DX: R45.851 Suicidal ideations (principal); F14.10 Cocaine abuse, uncomplicated; D75.89 Other specified diseases of blood and blood-forming organs; R74.01 Elevation of levels of liver transaminase levels; F31.9 Bipolar disorder, unspecified; M19.90 Unspecified osteoarthritis, unspecified site; M79.7 Fibromyalgia; F17.200 Nicotine dependence, unspecified, uncomplicated; Z59.00 Homelessness unspecified; Z86.69 Personal history of other diseases of the nervous system and sense organs; Z88.8 Allergy status to other drugs, medicaments and biological substances; Z79.899 Other long term (current) drug therapy
CPT/HCPCS: 36415; 80048-TC; 80076-TC; 85025-TC; G0480

== ENCOUNTER 2022-03-26 07:13 | Emergency (ER) | payer MEDICAID ==
--- NOTE | 2022-03-26 07:30 | NUR ---
Called NO Response
--- NOTE | 2022-03-26 08:04 | NUR ---
Called NO Response
== END 2022-03-26 08:05 | disposition home or self-care (01) ==
LOC: ER 07:14
DX: Z53.21 Procedure and treatment not carried out due to patient leaving prior to being seen by health care provider (principal)

== ENCOUNTER 2022-03-27 06:11 | Emergency (ER) | payer MEDICAID ==
[~2022-03-27] VITALS: Ht 172.7 cm; Wt 63.5 kg
--- NOTE | 2022-03-27 06:31 | NUR ---
BIBSELF C/O +SI PLAN TO OD ON DRUGS, VOL PSYCH ADMIT TO [facility] . PT A/OX3. TOLERATING R/A WELL WITH NO SOB. PT AMBULATORY WITH WALKER. SAFETY MEASURES IN PLACE. 1:1 SITTER AT PT'S BEDSIDE.
--- NOTE | 2022-03-27 06:43 | NUR ---
URINE AND COVID ANTIGEN SWAB COLLECTED AND SENT TO LAB
--- NOTE | 2022-03-27 06:45 | NUR ---
[facility] AT PT'S BEDSIDE
[2022-03-27 07:21] LABS: BASOPHILS % (AUTO) 0.6 % (0.0-2.0); HEMATOCRIT 39 % (39-51); HEMOGLOBIN 13.1 g/dL (13.5-17.5); LYMPHOCYTES # (AUTO) 1.2 K/uL (0.8-4.8); LYMPHOCYTES % (AUTO) 20.1 % (20.0-44.0); MEAN CORPUSCULAR HGB CONC 33 g/dl (31.0-36.0); MEAN CORPUSCULAR VOLUME 99 fL (80-96); MONOCYTES # (AUTO) 0.7 K/uL (0.1-1.30); MONOCYTES % (AUTO) 11.5 % (2.0-12.0); NEUTROPHILS # (AUTO) 3.9 K/uL (1.8-8.9); NEUTROPHILS % (AUTO) 63.8 % (43.0-81.0); PLATELET COUNT (AUTO) 251 K/uL (150-450); WHITE BLOOD COUNT (AUTO) 6.1 K/uL (4.3-11.0)
[2022-03-27 07:24] LABS: CALCIUM, SERUM 8.7 mg/dL (8.5-10.1); CARBON DIOXIDE 31 mmol/L (21-32); CHLORIDE 106 mmol/L (98-107); CREATININE 0.9 mg/dL (0.6-1.3); GLUCOSE 123 mg/dL (74-106); POTASSIUM 3.6 mmol/L (3.5-5.1); SODIUM SERUM 142 mmol/L (136-145); UREA NITROGEN, BLOOD 13 mg/dL (7-18)
[2022-03-27 07:31] LABS: ALANINE AMINOTRANSFERASE 30 U/L (12-78); ALBUMIN 3.2 g/dL (3.4-5.0); ALKALINE PHOSPHATASE 66 U/L (46-116); ASPARTATE AMINOTRANSFERASE 19 U/L (15-37); BILIRUBIN,DIRECT 0.1 mg/dL (0.0-0.2); BILIRUBIN,TOTAL 0.5 mg/dL (0.2-1.0); TOTAL PROTEIN, SERUM 6.9 g/dL (6.4-8.2)
[2022-03-27 07:31] LABS: BILIRUBIN,URINE NEGATIVE (NEGATIVE); COLOR,URINE DARK YELLOW (YELLOW); LEUKOCYTE ESTERASE ,URINE NEGATIVE (NEGATIVE); NITRITE, URINE NEGATIVE (NEGATIVE); PROTEIN,URINE NEGATIVE (NEGATIVE); UGLUCOSE NEGATIVE (NEGATIVE)
[2022-03-27 07:36] LABS: ACETAMINOPHEN < 10 ug/ml (10-30); ALCOHOL, BLOOD < 3 mg/dL (0-0)
[2022-03-27 07:59] LABS: BACTERIA,URINE Rare /HPF (None Seen); RBC,URINE 0-3 /HPF (0-2); SQUAMOUS EPITHELIAL CELL,UR Few /HPF (None Seen); WBC,URINE 0-2 /HPF (0-3)
--- NOTE | 2022-03-27 09:54 | NUR ---
FAXED CLINICALS TO [facility] [[phone]]. PT. STATED THAT HE IS ALSO VOLUNTARY TO GO TO [facility].
--- NOTE | 2022-03-27 10:27 | NUR ---
patient accepted at [facility] to send patient after noon time.
--- NOTE | 2022-03-27 11:16 | NUR ---
PT. IS ACCEPTED TO [facility], UNDER DR. LINDQUIST. PLEASE CALL REPORT IN TO SUP AT [phone] AT 12:15PM. [facility] WILL CALL BACK WITH
--- NOTE | 2022-03-27 11:17 | NUR ---
[facility] CALLED TRANSPORT ETA 60 MINS.
--- NOTE | 2022-03-27 12:45 | NUR ---
LUNCH TRAY PROVIDED. TOLERATED WELL.
--- NOTE | 2022-03-27 13:39 | NUR ---
patient [facility] up [facility]. All patient's belongings sent with patient.
--- NOTE | 2022-03-27 14:54 | NUR ---
CALL FROM KIMBERLI FROM [facility], SENDING THE PATIENT BACK SINCE PATIENT HAS SWOLLEN LEGS, PATIENT NEEDS TO GO TO [facility],SYLVIA TENORIO CALLED TO MAKE ARRANGEMENTS
--- NOTE | 2022-03-27 15:23 | NUR ---
SKY FROM [facility] CALLED WILL CALL US BACK WITH ROOM IN [place].
--- NOTE | 2022-03-27 15:27 | NUR ---
Spoke with Marcello from [facility]. Per Marcello, pt. is accepted at [facility], he will call us back with accepting info/ETA.
--- NOTE | 2022-03-27 17:40 | NUR ---
PT ACCEPTED TO [facility] UNDER DR. SOOD PLEASE CALL [phone] FOR REPORT. AWAITING OUR CALL PER SKY.
--- NOTE | 2022-03-27 17:43 | NUR ---
[facility] CALLED FOR TRANSPORT TO [facility] ETA 1914
[2022-03-27 18:20] VITALS: BP 132/77
--- NOTE | 2022-03-27 18:50 | NUR ---
REPORT GIVEN TO [facility] TRANSPORT CREW FOR [facility]
--- NOTE | 2022-03-27 19:10 | NUR ---
PATIENT TRANSFERRED TO [facility]IA [facility].
== END 2022-03-27 13:39 ==
LOC: ER 06:18
DX: R45.851 Suicidal ideations (principal); M79.89 Other specified soft tissue disorders; Z59.00 Homelessness unspecified; F19.10 Other psychoactive substance abuse, uncomplicated; G62.9 Polyneuropathy, unspecified; M79.7 Fibromyalgia; M19.90 Unspecified osteoarthritis, unspecified site; Z79.899 Other long term (current) drug therapy; Z20.822 Contact with and (suspected) exposure to COVID-19
CPT/HCPCS: 36415; 80048; 80076; 80143; 80307; 80320; 81001; 85025; 87426; 99285; C9803; G0480

== ENCOUNTER 2022-06-21 14:27 | Emergency (ER) | payer MEDICAID, OTHER ==
[~2022-06-21] VITALS: Ht 172.7 cm; Wt 56.7 kg
--- NOTE | 2022-06-21 14:33 | NUR ---
TO ER BED 18, BIBS C/O SI "RUN INTO TRAFFIC", VOLUNTARY ADMISSION TO [facility], BREATHING EVEN AND NON LABORED, AWAITING MD MURRAY
--- NOTE | 2022-06-21 15:06 | NUR ---
COVID SWAB DONE AND SENT TO LAB
--- NOTE | 2022-06-21 15:18 | NUR ---
URINE COLLECTED AND SENT TO THE LAB
--- NOTE | 2022-06-21 15:19 | NUR ---
POKER SUPERVISOR AT BEDSIDE FOR BLOOD DRAW
[2022-06-21 15:54] LABS: BASOPHILS # (AUTO) 0.1 K/uL (0.0-0.2); BASOPHILS % (AUTO) 1.2 % (0.0-2.0); EOSINOPHILS % (AUTO) 2.3 % (0.0-6.0); HEMATOCRIT 41 % (39-51); HEMOGLOBIN 13.6 g/dL (13.5-17.5); LYMPHOCYTES # (AUTO) 1.4 K/uL (0.8-4.8); LYMPHOCYTES % (AUTO) 23.8 % (20.0-44.0); MEAN CORPUSCULAR HGB CONC 33 g/dl (31.0-36.0); MEAN CORPUSCULAR VOLUME 97 fL (80-96); MONOCYTES # (AUTO) 0.5 K/uL (0.1-1.30); MONOCYTES % (AUTO) 9.5 % (2.0-12.0); NEUTROPHILS # (AUTO) 3.6 K/uL (1.8-8.9); NEUTROPHILS % (AUTO) 63.2 % (43.0-81.0); PLATELET COUNT (AUTO) 232 K/uL (150-450); RED BLOOD CELL COUNT(AUTO) 4.22 MIL/uL (4.5-6.0); WHITE BLOOD COUNT (AUTO) 5.7 K/uL (4.3-11.0)
[2022-06-21 16:04] LABS: CALCIUM, SERUM 8.7 mg/dL (8.5-10.1); CARBON DIOXIDE 31 mmol/L (21-32); CHLORIDE 107 mmol/L (98-107); GLUCOSE 95 mg/dL (74-106); POTASSIUM 3.9 mmol/L (3.5-5.1); SODIUM SERUM 144 mmol/L (136-145); UREA NITROGEN, BLOOD 13 mg/dL (7-18)
[2022-06-21 16:09] LABS: ALANINE AMINOTRANSFERASE 18 U/L (12-78); ALBUMIN 3.9 g/dL (3.4-5.0); ALCOHOL, BLOOD < 3 mg/dL (0-0); ALKALINE PHOSPHATASE 63 U/L (46-116); ASPARTATE AMINOTRANSFERASE 11 U/L (15-37); BILIRUBIN,DIRECT 0.1 mg/dL (0.0-0.2); BILIRUBIN,TOTAL 0.4 mg/dL (0.2-1.0); TOTAL PROTEIN, SERUM 7.5 g/dL (6.4-8.2)
[2022-06-21 16:20] LABS: BILIRUBIN,URINE SMALL (NEGATIVE); COLOR,URINE YELLOW (YELLOW); LEUKOCYTE ESTERASE ,URINE NEGATIVE (NEGATIVE); NITRITE, URINE NEGATIVE (NEGATIVE); PROTEIN,URINE NEGATIVE (NEGATIVE); UGLUCOSE NEGATIVE (NEGATIVE)
[2022-06-21 16:26] LABS: BACTERIA,URINE RARE /HPF (None Seen); CALCIUM OXALATE CRYSTALS,UR Many /HPF (None Seen); MUCUS,URINE Many /LPF (None Seen); RBC,URINE 21-50 /HPF (0-2); WBC,URINE 0-2 /HPF (0-3)
--- NOTE | 2022-06-21 22:00 | NUR ---
FAXED CLINICALS TO [facility]
--- NOTE | 2022-06-22 05:36 | NUR ---
PER [facility] AT [facility] NO BED AVAILLABLE
--- NOTE | 2022-06-22 11:40 | NUR ---
SS consult requested for suicidal ideation and possible homelessness. Pt. is a 61-year-old male who was admitted to [facility] on 06/21/2022 due to suicidal ideation. Upon SS consult, pt. is alert and oriented x4. Pt. did not provide appropriate eye contact and presented with a blanket over his face. Pt. refused to remove the blanket from his face during the assessment. Pt. presents with a dysphoric mood and low speech. Pt. presents with a tangential thought process. Pt. appears unkempt. Pt. needed redirection throughout the assessment. Pt. stated that he came to the emergency room due to suicidal ideation. Pt. stated he was going to "run into traffic." Pt. stated he has a diagnosis of bipolar and depression. Pt. stated he does not see a psychiatrist. retail planner explored the pt.'s substance use history. Pt. stated he does crack and drinks alcohol. retail planner offered the pt. substance use resources and the pt. accepted them. retail planner explored the pt.'s current living situation. Pt. stated he is currently homeless. Discharge planer offered the pt. homeless resources and the pt. accepted. Plan: Upon Discharge, pt. stated he wanted to be discharged to [facility] [[address] [place] [address]]. Pt. signed homeless waiver and it was placed I the chart. provided the pt. with the following homeless, substance use and mental health resources: Year-round shelters: [facility] [address] [place] [address] ; [facility] [address] [place] [address]; [facility] [address] [facility]. [facility] [id number] Hygiene: [facility]: [address]. [place] ; [facility] [address] [facility] ; [facility] [address] [place] . Food Resources: [facility] at [facility]- [address] [place]; Meet Each Need with Dignity ([facility]) [address]; [facility] Food Pantry 4390 [facility]; [facility] 8597 Mchen[address] yosef Royka. Mental Health resources provided: [facility] [address] [place] [address] ; [facility] [place] [address] [facility] [address], [place] [address] ; [facility] [address] [place] [address] ; [facility] [address] [place], [place] [phone] Healthcare Clinics: [facility] [address] [facility], [address] [place]. [place] ; [facility] [address] [facility] [address] [place] [address]; [facility] [address] [place] [address] [phone] Counseling--Outpatient [facility] [address] [facility], [place] [address] (Specializes in in-depth psychotherapy for emotional distress: anxiety, depression, interpersonal conflicts, life transitions, childhood abuse) [facility] Guidance Center [address] [place] [address] (Assist with solving problem marital difficulties, separation & divorce, aging parents, & grief, chronic & terminal illness) [facility] [address] [place] [address] (Deal with loss & grief, anxiety, marital difficulties) Homebound/Mental Health Services [address] [facility], [address] [place], [place] [address] (Provide in-home mental services to people who are incapable of leaving their homes) Organization for Needs of the Elderly Senior Service/Resource Center [address] [place] [address] [facility] 6514 [place] [address]
--- NOTE | 2022-06-22 12:15 | NUR ---
PATIENT PROVIDED W LUNCH TRAY.
[2022-06-22 14:02] VITALS: BP 129/79
--- NOTE | 2022-06-22 15:12 | NUR ---
PT ACCEPTED TO [facility], TRANSPORTATION WILL BE HERE AT [address] SANDERS NUMBER FOR REPORT [phone] UNIT 2
--- NOTE | 2022-06-22 15:17 | NUR ---
CALLED FOR REPORT, TOLD IT WAS CHANGE OF SHIFT AND TO CALL BACK
--- NOTE | 2022-06-22 15:38 | NUR ---
TRANSPORTATION ARRIVED, PT TRASNPORTED IN STABLE CONDITION AND GIVEN BELONGINGS.
== END 2022-06-22 15:40 ==
LOC: ER 14:31
DX: R45.851 Suicidal ideations (principal); R31.29 Other microscopic hematuria; Z20.822 Contact with and (suspected) exposure to COVID-19; M79.7 Fibromyalgia; M19.90 Unspecified osteoarthritis, unspecified site; G62.9 Polyneuropathy, unspecified; Z59.00 Homelessness unspecified; F31.9 Bipolar disorder, unspecified; Z79.899 Other long term (current) drug therapy; R82.5 Elevated urine levels of drugs, medicaments and biological substances
CPT/HCPCS: 99285; 85025; 80048; 80076; 81001; 36415; 87426; 80143; 80320; 80307; C9803; G0480

== ENCOUNTER 2022-07-02 17:04 | Emergency (ER) | payer MEDICAID, OTHER ==
--- NOTE | 2022-07-02 17:24 | NUR ---
Called NO response wastold by receptionist doctor's office "He left said he was going to get food and he will be back"
--- NOTE | 2022-07-02 18:00 | NUR ---
Called- No response
--- NOTE | 2022-07-02 19:19 | NUR ---
called to triage no answer
== END 2022-07-02 19:20 | disposition home or self-care (01) ==
LOC: ER 19:15
DX: Z53.21 Procedure and treatment not carried out due to patient leaving prior to being seen by health care provider (principal)

== ENCOUNTER 2022-07-03 09:30 | Emergency (ER) | payer MEDICAID, OTHER ==
[~2022-07-03] VITALS: Ht 172.7 cm; Wt 56.7 kg
--- NOTE | 2022-07-03 10:39 | NUR ---
URINE COLLECTED AND COVID SWAB DONE AND SENT TO LAB
[2022-07-03 11:38] LABS: BILIRUBIN,URINE NEGATIVE (NEGATIVE); COLOR,URINE YELLOW (YELLOW); LEUKOCYTE ESTERASE ,URINE NEGATIVE (NEGATIVE); NITRITE, URINE NEGATIVE (NEGATIVE); PH,URINE 6.5 (5.0-8.0); PROTEIN,URINE NEGATIVE (NEGATIVE); UGLUCOSE NEGATIVE (NEGATIVE)
[2022-07-03 12:22] LABS: BASOPHILS % (AUTO) 0.8 % (0.0-2.0); EOSINOPHILS % (AUTO) 2.5 % (0.0-6.0); HEMATOCRIT 41 % (39-51); HEMOGLOBIN 13.6 g/dL (13.5-17.5); LYMPHOCYTES # (AUTO) 1.1 K/uL (0.8-4.8); LYMPHOCYTES % (AUTO) 20.2 % (20.0-44.0); MEAN CORPUSCULAR HGB CONC 33 g/dl (31.0-36.0); MEAN CORPUSCULAR VOLUME 98 fL (80-96); MONOCYTES # (AUTO) 0.6 K/uL (0.1-1.30); MONOCYTES % (AUTO) 10.3 % (2.0-12.0); NEUTROPHILS # (AUTO) 3.6 K/uL (1.8-8.9); NEUTROPHILS % (AUTO) 66.2 % (43.0-81.0); PLATELET COUNT (AUTO) 221 K/uL (150-450); RED BLOOD CELL COUNT(AUTO) 4.22 MIL/uL (4.5-6.0); WHITE BLOOD COUNT (AUTO) 5.5 K/uL (4.3-11.0)
[2022-07-03 12:42] LABS: CALCIUM, SERUM 8.7 mg/dL (8.5-10.1); CARBON DIOXIDE 33 mmol/L (21-32); CHLORIDE 105 mmol/L (98-107); CREATININE 0.8 mg/dL (0.6-1.3); GLUCOSE 134 mg/dL (74-106); POTASSIUM 3.7 mmol/L (3.5-5.1); SODIUM SERUM 143 mmol/L (136-145); UREA NITROGEN, BLOOD 11 mg/dL (7-18)
[2022-07-03 12:49] LABS: ALANINE AMINOTRANSFERASE 28 U/L (12-78); ALBUMIN 3.6 g/dL (3.4-5.0); ALKALINE PHOSPHATASE 62 U/L (46-116); ASPARTATE AMINOTRANSFERASE 17 U/L (15-37); BILIRUBIN,DIRECT 0.1 mg/dL (0.0-0.2); BILIRUBIN,TOTAL 0.5 mg/dL (0.2-1.0); TOTAL PROTEIN, SERUM 7.3 g/dL (6.4-8.2)
[2022-07-03 12:53] LABS: ACETAMINOPHEN < 10 ug/ml (10-30); ALCOHOL, BLOOD < 3 mg/dL (0-0)
[2022-07-03 13:13] LABS: BACTERIA,URINE None seen /HPF (None Seen); SQUAMOUS EPITHELIAL CELL,UR Rare /HPF (None Seen); WBC,URINE NONE SEEN /HPF (0-3)
--- NOTE | 2022-07-03 16:46 | NUR ---
PT ACCEPTED [facility] UNDER DR. ALCANTAR NUMBER FOR REPORT [phone] ROOM AND UNIT WILL BE GIVEN UPON REPORT
--- NOTE | 2022-07-03 17:02 | NUR ---
REPORT GIVEN TO KATHY FOR LB GOING TO BEHAVIORAL HEALTH UNIT ROOM 314-B
--- NOTE | 2022-07-03 18:37 | NUR ---
[facility] TRANSPORTATION ETA 60-75 MINUTES
--- NOTE | 2022-07-03 19:41 | NUR ---
[facility] at bedside for transport.
[2022-07-03 19:42] VITALS: BP 112/70
== END 2022-07-03 19:54 ==
LOC: ER 09:39
DX: R45.851 Suicidal ideations (principal); Z59.00 Homelessness unspecified; Z20.822 Contact with and (suspected) exposure to COVID-19; M79.7 Fibromyalgia; M19.90 Unspecified osteoarthritis, unspecified site; G62.9 Polyneuropathy, unspecified; F14.90 Cocaine use, unspecified, uncomplicated; Z79.899 Other long term (current) drug therapy
CPT/HCPCS: 99285; 85025; 80048; 80076; 81001; 36415; 87426; 80143; 80320; 80307; C9803; G0480

== ENCOUNTER 2022-07-30 07:39 | Emergency (ER) | payer OTHER ==
[~2022-07-30] VITALS: Ht 172.7 cm; Wt 56.7 kg
[2022-07-30 07:54] VITALS: BP 129/93
[2022-07-30 08:20] LABS: BASOPHILS % (AUTO) 0.4 % (0.0-2.0); EOSINOPHILS % (AUTO) 2.3 % (0.0-6.0); HEMATOCRIT 38 % (39-51); HEMOGLOBIN 12.8 g/dL (13.5-17.5); LYMPHOCYTES # (AUTO) 1.1 K/uL (0.8-4.8); LYMPHOCYTES % (AUTO) 16.6 % (20.0-44.0); MEAN CORPUSCULAR HGB CONC 33 g/dl (31.0-36.0); MEAN CORPUSCULAR VOLUME 97 fL (80-96); MONOCYTES # (AUTO) 0.7 K/uL (0.1-1.30); MONOCYTES % (AUTO) 10.5 % (2.0-12.0); NEUTROPHILS # (AUTO) 4.7 K/uL (1.8-8.9); NEUTROPHILS % (AUTO) 70.2 % (43.0-81.0); PLATELET COUNT (AUTO) 224 K/uL (150-450); RED BLOOD CELL COUNT(AUTO) 3.93 MIL/uL (4.5-6.0); WHITE BLOOD COUNT (AUTO) 6.7 K/uL (4.3-11.0)
[2022-07-30 08:29] LABS: BILIRUBIN,URINE NEGATIVE (NEGATIVE); COLOR,URINE YELLOW (YELLOW); LEUKOCYTE ESTERASE ,URINE NEGATIVE (NEGATIVE); NITRITE, URINE NEGATIVE (NEGATIVE); PH,URINE 6.5 (5.0-8.0); PROTEIN,URINE NEGATIVE (NEGATIVE); UGLUCOSE NEGATIVE (NEGATIVE)
[2022-07-30 08:30] LABS: CALCIUM, SERUM 8.7 mg/dL (8.5-10.1); CARBON DIOXIDE 33 mmol/L (21-32); CHLORIDE 104 mmol/L (98-107); CREATININE 0.9 mg/dL (0.6-1.3); GLUCOSE 109 mg/dL (74-106); POTASSIUM 3.1 mmol/L (3.5-5.1); SODIUM SERUM 142 mmol/L (136-145); UREA NITROGEN, BLOOD 7 mg/dL (7-18)
[2022-07-30 08:36] LABS: ALANINE AMINOTRANSFERASE 19 U/L (12-78); ALBUMIN 3.4 g/dL (3.4-5.0); ALCOHOL, BLOOD < 3 mg/dL (0-0); ALKALINE PHOSPHATASE 65 U/L (46-116); ASPARTATE AMINOTRANSFERASE 19 U/L (15-37); BILIRUBIN,DIRECT 0.2 mg/dL (0.0-0.2); BILIRUBIN,TOTAL 0.5 mg/dL (0.2-1.0); TOTAL PROTEIN, SERUM 6.9 g/dL (6.4-8.2)
[2022-07-30 08:42] LABS: ACETAMINOPHEN < 10 ug/ml (10-30)
[2022-07-30 08:52] LABS: BACTERIA,URINE None seen /HPF (None Seen); SQUAMOUS EPITHELIAL CELL,UR None Seen /HPF (None Seen); WBC,URINE NONE SEEN /HPF (0-3)
[2022-07-30] MEDS ORDERED: ACETAMINOPHEN ES 500 MG TABLET ONE (09:21)
--- NOTE | 2022-07-30 10:21 | NUR ---
SAY faxed clinicals to [facility] TEL:[phone] fax:[phone] for for voluntary psychiatric treatment at [facility] [[facility] [place] [address] FAX:[phone]].
--- NOTE | 2022-07-30 10:39 | NUR ---
FAXED CLINICALS TO [facility].
[2022-07-30] MEDS ORDERED: POTASSIUM CHLORIDE 20 MEQ TAB.PRT.SR PO ONE ×2 (11:00→11:27)
--- NOTE | 2022-07-30 11:51 | NUR ---
PER WIL OF [facility], NO AVAILABLE BED WITH WHEELCHAIR ASSISTANCE IN [facility], PAPERWORKS WILL BE SENT TO [place] [place], PATIENT AWARE
--- NOTE | 2022-07-30 13:14 | NUR ---
Per Shahnaz from [facility] TEL:[phone] THEY'RE STILL WAITING FOR FEEDBACK FROM [place] ABOUT BED AVAILABILITY FOR THIS PT.
--- NOTE | 2022-07-30 14:03 | NUR ---
PT ACCEPTED TO [facility] UNDER DR. SOOD PLEASE CALL [phone] FOR REPORT.
--- NOTE | 2022-07-30 14:42 | NUR ---
[facility] CALLED FOR TRANSPORT ETA [phone] PER SMITA.
--- NOTE | 2022-07-30 16:09 | NUR ---
report given to jossy, awaiting transport ambulance.
== END 2022-07-30 16:17 ==
LOC: ER 07:44
DX: F31.9 Bipolar disorder, unspecified (principal); R45.851 Suicidal ideations; M79.7 Fibromyalgia; G62.9 Polyneuropathy, unspecified; M19.90 Unspecified osteoarthritis, unspecified site; Z79.899 Other long term (current) drug therapy; Z20.822 Contact with and (suspected) exposure to COVID-19
CPT/HCPCS: 99285; 85025; 80048; 80076; 81001; 36415; 87426; 80143; 80320; 80307; C9803; G0480

== ENCOUNTER 2022-08-28 12:39 | Emergency (ER) | payer MEDICAID, OTHER ==
[~2022-08-28] VITALS: Ht 172.7 cm; Wt 59.0 kg
[2022-08-28 13:55] LABS: BILIRUBIN,URINE NEGATIVE (NEGATIVE); COLOR,URINE YELLOW (YELLOW); LEUKOCYTE ESTERASE ,URINE NEGATIVE (NEGATIVE); NITRITE, URINE NEGATIVE (NEGATIVE); PROTEIN,URINE NEGATIVE (NEGATIVE); UGLUCOSE NEGATIVE (NEGATIVE)
--- NOTE | 2022-08-28 14:00 | NUR ---
URINE COLLECTED AND COVID SWAB DONE AND SENT TO LAB
[2022-08-28 14:07] LABS: BACTERIA,URINE Few /HPF (None Seen); SQUAMOUS EPITHELIAL CELL,UR Few /HPF (None Seen); WBC,URINE 0-2 /HPF (0-3)
[2022-08-28 14:08] LABS: CALCIUM OXALATE CRYSTALS,UR Rare /HPF (None Seen); MUCUS,URINE Few /LPF (None Seen)
[2022-08-28 16:59] LABS: BASOPHILS % (AUTO) 0.3 % (0.0-2.0); HEMATOCRIT 36 % (39-51); HEMOGLOBIN 11.9 g/dL (13.5-17.5); LYMPHOCYTES # (AUTO) 1.2 K/uL (0.8-4.8); LYMPHOCYTES % (AUTO) 18.9 % (20.0-44.0); MEAN CORPUSCULAR HGB CONC 33 g/dl (31.0-36.0); MEAN CORPUSCULAR VOLUME 98 fL (80-96); MONOCYTES # (AUTO) 0.8 K/uL (0.1-1.30); MONOCYTES % (AUTO) 12.5 % (2.0-12.0); NEUTROPHILS # (AUTO) 4.3 K/uL (1.8-8.9); NEUTROPHILS % (AUTO) 66.3 % (43.0-81.0); PLATELET COUNT (AUTO) 274 K/uL (150-450); RED BLOOD CELL COUNT(AUTO) 3.67 MIL/uL (4.5-6.0); WHITE BLOOD COUNT (AUTO) 6.5 K/uL (4.3-11.0)
--- NOTE | 2022-08-28 17:16 | NUR ---
SAY faxed clinicals to [facility] TEL:[phone] fax:[phone] for voluntary psychiatric treatment at [facility] [[facility] [facility] [place] [address] FAX:[phone]].
[2022-08-28 17:27] LABS: ALANINE AMINOTRANSFERASE 20 U/L (12-78); ALBUMIN 3.2 g/dL (3.4-5.0); ALCOHOL, BLOOD < 3 mg/dL (0-0); ALKALINE PHOSPHATASE 71 U/L (46-116); ASPARTATE AMINOTRANSFERASE 15 U/L (15-37); BILIRUBIN,DIRECT 0.1 mg/dL (0.0-0.2); BILIRUBIN,TOTAL 0.4 mg/dL (0.2-1.0); CARBON DIOXIDE 30 mmol/L (21-32); CHLORIDE 107 mmol/L (98-107); CREATININE 0.8 mg/dL (0.6-1.3); GLUCOSE 97 mg/dL (74-106); POTASSIUM 3.7 mmol/L (3.5-5.1); SODIUM SERUM 144 mmol/L (136-145); UREA NITROGEN, BLOOD 12 mg/dL (7-18)
[2022-08-28 17:33] LABS: ACETAMINOPHEN 0 ug/ml (10-30)
--- NOTE | 2022-08-29 04:25 | NUR ---
PT IS ACCEPTED AT [facility] UNDER THE CARE OF DR. NASH. CALL [phone] EXT. [phone]
--- NOTE | 2022-08-29 05:43 | NUR ---
[facility] CALLED FOR BLS GOING TO [facility] PER CARIE PICKUP @ [phone]
--- NOTE | 2022-08-29 05:52 | NUR ---
REPORT GIVEN TO ATE AT [facility]
--- NOTE | 2022-08-29 09:41 | NUR ---
ETA 20 MINS
[2022-08-29 10:00] VITALS: BP 129/85
--- NOTE | 2022-08-29 10:24 | NUR ---
PICKED UP BY TRANSPORT IN STABLE CONDITION
== END 2022-08-29 10:29 ==
LOC: ER 12:46
DX: R45.851 Suicidal ideations (principal); G62.9 Polyneuropathy, unspecified; M79.7 Fibromyalgia; F31.9 Bipolar disorder, unspecified; M19.90 Unspecified osteoarthritis, unspecified site; Z79.899 Other long term (current) drug therapy; R82.4 Acetonuria; Z20.822 Contact with and (suspected) exposure to COVID-19; F14.10 Cocaine abuse, uncomplicated
CPT/HCPCS: 99285; 85025; 80048; 80076; 81001; 36415; 87426; 80143; 80320; 80307; C9803; G0480

== ENCOUNTER 2022-10-20 23:11 | Inpatient (IN) | payer MEDICAID, OTHER ==
[~2022-10-20] VITALS: Ht 167.6 cm; Wt 63.5 kg
--- NOTE | 2022-10-21 00:44 | NUR ---
BIBS FROM STREET C/O R FOOT PAIN/SWELLING AND SI W/ NO PLAN. PT A/OX3. TOLERATING R/A WELL WITH NO RESP DISTRESS. RR EVEN AND NON LABORED. PT CHANGED IN GOWN, BELONGINGS PLACED IN LOCKER, AND WANDED BY SECURITY. SAFETY MEASURES IN PLACE. SITTER WITHIN SIGHT.
[2022-10-21] MEDS ORDERED: VANCOMYCIN 1 GM in IV D5W 250 ML IV ONE (01:00)
[2022-10-21] MEDS ORDERED: VANCOMYCIN 1 GM VIAL ONE (01:08)
--- NOTE | 2022-10-21 01:30 | NUR ---
RAC #18G S/L BLOOD AND COVID ANTIGEN SWAB COLLECTED AND SENT TO LAB
--- NOTE | 2022-10-21 01:30 | NUR ---
PROVIDED PT WITH URINAL; AWAITING URINE SAMPLE.
[2022-10-21 01:35] LABS: BASOPHILS % (AUTO) 0.5 % (0.0-2.0); EOSINOPHILS % (AUTO) 1.5 % (0.0-6.0); HEMATOCRIT 38 % (39-51); HEMOGLOBIN 12.5 g/dL (13.5-17.5); LYMPHOCYTES # (AUTO) 1.1 K/uL (0.8-4.8); MEAN CORPUSCULAR HGB CONC 33 g/dl (31.0-36.0); MEAN CORPUSCULAR VOLUME 97 fL (80-96); MONOCYTES # (AUTO) 1.1 K/uL (0.1-1.30); MONOCYTES % (AUTO) 11.7 % (2.0-12.0); NEUTROPHILS # (AUTO) 6.7 K/uL (1.8-8.9); NEUTROPHILS % (AUTO) 74.3 % (43.0-81.0); PLATELET COUNT (AUTO) 298 K/uL (150-450); RED BLOOD CELL COUNT(AUTO) 3.89 MIL/uL (4.5-6.0)
[2022-10-21 01:41] LABS: CALCIUM, SERUM 8.9 mg/dL (8.5-10.1); CARBON DIOXIDE 34 mmol/L (21-32); CHLORIDE 108 mmol/L (98-107); CREATININE 0.9 mg/dL (0.6-1.3); GLUCOSE 107 mg/dL (74-106); POTASSIUM 3.7 mmol/L (3.5-5.1); SODIUM SERUM 142 mmol/L (136-145); UREA NITROGEN, BLOOD 15 mg/dL (7-18)
[2022-10-21 01:49] LABS: ACETAMINOPHEN < 10 ug/ml (10-30); ALANINE AMINOTRANSFERASE 21 U/L (12-78); ALBUMIN 3.3 g/dL (3.4-5.0); ALCOHOL, BLOOD < 3 mg/dL (0-0); ALKALINE PHOSPHATASE 80 U/L (46-116); ASPARTATE AMINOTRANSFERASE 22 U/L (15-37); BILIRUBIN,DIRECT 0.1 mg/dL (0.0-0.2); BILIRUBIN,TOTAL 0.4 mg/dL (0.2-1.0); TOTAL PROTEIN, SERUM 7.3 g/dL (6.4-8.2)
--- NOTE | 2022-10-21 03:27 | NUR ---
URINE COLLECTED AND SENT TO LAB
[2022-10-21] MEDS ORDERED: ACETAMINOPHEN 325 MG TABLET PO PRN (03:30)
[2022-10-21] MEDS ORDERED: HYDROCODONE/APAP 5/325MG TABLET PO PRN (03:30)
[2022-10-21] MEDS ORDERED: ONDANSETRON HCL/PF 4 MG/2 ML VIAL IVP PRN (03:30)
[2022-10-21] MEDS ORDERED: MAGNESIUM HYDROXIDE 30 ML UDC PO PRN (03:30)
[2022-10-21] MEDS ORDERED: Z GUARD REMEDY 4 OZ OINT TP PRN (03:30)
[2022-10-21] MEDS ORDERED: MAG HYDROX/AL HYDROX/SIMETH 30 ML UDC PO PRN (03:30)
[2022-10-21] MEDS ORDERED: TEMAZEPAM 15 MG CAPSULE PO PRN (03:30)
[2022-10-21 03:46] LABS: BILIRUBIN,URINE NEGATIVE (NEGATIVE); COLOR,URINE YELLOW (YELLOW); LEUKOCYTE ESTERASE ,URINE NEGATIVE (NEGATIVE); NITRITE, URINE NEGATIVE (NEGATIVE); PROTEIN,URINE NEGATIVE (NEGATIVE); UGLUCOSE NEGATIVE (NEGATIVE)
[2022-10-21 03:48] LABS: BACTERIA,URINE Rare /HPF (None Seen); CALCIUM OXALATE CRYSTALS,UR Few /HPF (None Seen); SQUAMOUS EPITHELIAL CELL,UR Few /HPF (None Seen); WBC,URINE 0-2 /HPF (0-3)
--- NOTE | 2022-10-21 11:16 | NUR ---
WOUND CARE CONSULT: PT WAS SEEN THIS AM IN TRANSITION AREA AND NOTED TO HAVE DISCOLORATION TO BILATERAL FEET WITH EDEMA AND TENDERNESS. DR MEJÍA CALLED FOR DPM CONSULT. IN AGREEMENT WITH PLAN OF CARE.
[2022-10-21] MEDS: PANTOPRAZOLE 40 MG TABLET.DR PO SCH (11:30)
[2022-10-21] MEDS ORDERED: HYDROCODONE/APAP 10/325MG TABLET ONE (11:33)
[2022-10-21] MEDS ORDERED: PANTOPRAZOLE 40 MG TABLET.DR PO ONE (11:33)
[2022-10-21] MEDS: HYDROCODONE/APAP 10/325MG TABLET PO PRN ×2 (11:38→18:03)
--- NOTE | 2022-10-21 11:59 | NUR ---
report given to Monika WATSON to continue care
--- NOTE | 2022-10-21 12:26 | NUR ---
Wheeled patient via gurney accompanied by EMT in no distress. RN assigned at bedside to assume care.
--- NOTE | 2022-10-21 12:30 | NUR ---
admission notes Received patient via gurney awake, coherent, a/o x4. On RA, tolerating well. No signs of respiratory distress noted. Patient was cooperative and able to make needs known upon interaction. No IV access upon admission. Initial vitals taken, stable and recorded. All inital orders carried out. MD notified. Patient denies needs at this time. All safety precautions initiated. Will monitor.
[2022-10-21] MEDS: VANCOMYCIN 1 GM in IV D5W 250ml IV SCH (14:15)
--- NOTE | 2022-10-21 15:00 | NUR ---
RN note Inserted IV access at Right hand, G. 22 patent and free from redness. Started on normal saline at 75ml/hr.
[2022-10-21] MEDS: IV NS 0.9% 1,000 ML IV PRN (17:49)
--- NOTE | 2022-10-21 19:10 | NUR ---
MS RN NOTE PATIENT IS IN BED, AWAKE AND WATCHING TV. HE IS ON RA, NO S/S OF DISTRESS OR SOB. IV ACCESS IS AT HIS RIGHT FA, #22G, RUNNING NS @75 ML / HR. IV ACCESS IS PATENT AND INTACT. PATIENT IS ALERT AND ORIENTED, AO X 4. NO COMPLAIN OF PAIN AT THIS MOMENT. PATIENT IS ON SUICIDE WATCH ACCORDING TO THE CHANGE SHIFT REPORT. PATIENT IS CALM NOW. SAFETY MEASURE IN PLACE: BED IN LOWEST AND LOCKED POSITION; CALL LIGHT AND TALE ARE IN REACH; SIDE RAILS UP X 2. WILL MONITOR THE PATIENT AND PROVIDE THE CARE PATIENT NEEDS. WILL CLOSELY MONITOR THE PATIENT DUE TO THE PATIENT IS ON SUICIDE WATCH.
[2022-10-21 20:00] VITALS: BP 95/57
--- NOTE | 2022-10-21 20:26 | NUR ---
RN closing note Patient awake a/o x4. On RA, tolerating well. No signs of respiratory distress noted. All due meds given. Kept patient comfortable. All safety measures implemented. Endorsed to incoming nurse.
[2022-10-22] MEDS: VANCOMYCIN 1 GM in IV D5W 250ml IV SCH (01:14)
[2022-10-22] MEDS: IV NS 0.9% 1,000 ML IV PRN ×2 (07:07→15:04)
--- NOTE | 2022-10-22 07:30 | NUR ---
MS RN CLOSING NOTE PATIENT IS IN BED SLEEPING. HE IS ON RA, NO S/S OF DISTRESS OR SOB. IV ACCESS IS AT HIS RIGHT FA, #22G, RUNNING NS @75 ML / HR. IV ACCESS IS PATENT AND INTACT. PATIENT IS ON SUICIDE WATCH ACCORDING TO THE CHANGE SHIFT REPORT. THROUGH THE SHIFT, PATIENT HAS BEEN SLEEPING WITHOUT ANY DEPRESSED OR SUICIDAL BEHAVIORS. SAFETY MEASURE IN PLACE: BED IN LOWEST AND LOCKED POSITION; CALL LIGHT AND TALE ARE IN REACH; SIDE RAILS UP X 2. WILL ENDORSE NEXT SHIFT NURSE FOR CONTINUE PATIENT CARE.
[2022-10-22 08:49] VITALS: BP 128/68
[2022-10-22] MEDS: PANTOPRAZOLE 40 MG TABLET.DR PO SCH (09:01)
[2022-10-22 11:03] LABS: BASOPHILS % (AUTO) 0.6 % (0.0-2.0); EOSINOPHILS % (AUTO) 1.3 % (0.0-6.0); HEMATOCRIT 35 % (39-51); HEMOGLOBIN 11.6 g/dL (13.5-17.5); LYMPHOCYTES # (AUTO) 1.1 K/uL (0.8-4.8); LYMPHOCYTES % (AUTO) 14.2 % (20.0-44.0); MEAN CORPUSCULAR HGB CONC 33 g/dl (31.0-36.0); MEAN CORPUSCULAR VOLUME 97 fL (80-96); MONOCYTES # (AUTO) 0.7 K/uL (0.1-1.30); MONOCYTES % (AUTO) 9.3 % (2.0-12.0); NEUTROPHILS # (AUTO) 5.6 K/uL (1.8-8.9); NEUTROPHILS % (AUTO) 74.6 % (43.0-81.0); PLATELET COUNT (AUTO) 263 K/uL (150-450); RED BLOOD CELL COUNT(AUTO) 3.61 MIL/uL (4.5-6.0); WHITE BLOOD COUNT (AUTO) 7.6 K/uL (4.3-11.0)
[2022-10-22 11:34] LABS: CALCIUM, SERUM 8.3 mg/dL (8.5-10.1); CREATININE 0.8 mg/dL (0.6-1.3); PHOSPHORUS 2.6 mg/dL (2.5-4.9)
[2022-10-22] MEDS: VANCOMYCIN 1.25 GM in IV D5W 250 ML IV SCH (15:03)
[2022-10-22 16:27] VITALS: BP_SYST 110; BP_SYST 136; BP_DIAS 76; BP_DIAS 78
[2022-10-22] MEDS: ENSURE ENLIVE 237 ML LIQUID (VANILLA) PO SCH (17:33)
--- NOTE | 2022-10-22 18:31 | NUR ---
END OF SHIFT SUMMARY PATIENT IS A/O X4, ON RA SATURATING WELL. CONTINENT, USES THE URINAL. IV ACCESS ON R FA #22, NS RUNNING AT 75 ML/HR. TOLERATING ABX WELL. NO SI/HI IDEATION. SAFETY MEASURES MAINTAINED. BED IN LOWEST POSITION, BRAKES LOCKED. SIDE RAILS UP X2. CALL LIGHT WITHIN REACH. WILL ENDORSE CONTINUITY OF CARE TO ONCOMING SHIFT.
--- NOTE | 2022-10-22 19:15 | NUR ---
MS RN OPENING NOTE PATIENT IS IN SLEEPING. EASILY BEING AROUSED. HE IS ON RA, NO S/S OF DISTRESS OR SOB. IV ACCESS IS AT HIS RIGHT FA, #22G, RUNNING NS @75 ML / HR. IV ACCESS IS PATENT AND INTACT. PATIENT IS ALERT AND ORIENTED, AO X 4. NO COMPLAIN OF PAIN AT THIS MOMENT. PATIENT IS ON SUICIDE WATCH ACCORDING TO THE CHANGE SHIFT REPORT. PATIENT IS CALM NOW. SAFETY MEASURE IN PLACE: BED IN LOWEST AND LOCKED POSITION; CALL LIGHT AND TABLE ARE IN REACH; SIDE RAILS UP X 2. WILL MONITOR THE PATIENT AND PROVIDE THE CARE PATIENT NEEDS. WILL CLOSELY MONITOR THE PATIENT DUE TO THE PATIENT IS ON SUICIDE WATCH.
[2022-10-22 20:00] VITALS: BP 126/76
[2022-10-22] MEDS: TOPIRAMATE 100 MG TABLET PO SCH (21:30)
--- NOTE | 2022-10-23 | NUR ---
MS RN NOTE PT IS REQUESTING FOR A NICOTINE PATCH. YESI LOGAN CONTACTED AND RECEIVED THE ORDER IMMEDIATELY.
[2022-10-23] MEDS: NICOTINE PATCH (21MG) 21 MG PATCH.TD24 TD SCH ×2 (00:33→08:52)
[2022-10-23] MEDS: VANCOMYCIN 1.25 GM in IV D5W 250 ML IV SCH ×2 (02:37→14:10)
[2022-10-23] MEDS: HYDROCODONE/APAP 10/325MG TABLET PO PRN ×2 (04:10→21:16)
[2022-10-23] MEDS: IV NS 0.9% 1,000 ML IV PRN (05:26)
--- NOTE | 2022-10-23 05:47 | NUR ---
MS RN NOTE PATIENT'S IV SITE SHOWS SIGN OF INFILTRATION. TALKED WITH THE PATIENT AND THE IV SITE, AND TOLD THE PATIENT THAT I AM GOING TO INSERT ANOTHER IV SITE. PATIENT STATED 'I DON'T WANT TO BE POKED AGAIN". IV FLUID INFUSION IS PAUSED. ONE ICE PACK PROVIDED AT THE IV SITE.
--- NOTE | 2022-10-23 06:28 | NUR ---
MS RN JERICA CARDONA, FROM LAB, REPORTED THAT PATIENT REFUSED AM LAB DRAW.
--- NOTE | 2022-10-23 06:59 | NUR ---
MS RN CLOSING NOTE PATIENT IS SLEEPING IN BED. EASILY BEING AROUSED. HE IS ON RA, NO S/S OF DISTRESS OR SOB. IV ACCESS IS AT HIS RIGHT FA, #22G, SL. IV ACCESS IS SLIGHTLY INFILTRATED; ICE PACK IS APPLIED ON IT. PATIENT CLARK SNOT WANT TO HAVE ANOTHER IV ACCESS. PATIENT IS ALERT AND ORIENTED, AO X 4. NO COMPLAIN OF PAIN AT THIS MOMENT. PATIENT IS ON SUICIDE WATCH ACCORDING TO THE CHANGE SHIFT REPORT. THROUGH THE SHIFT, PATIENT DID NOT HAVE SUICIDE BEHAVIOR. SAFETY MEASURE IN PLACE: BED IN LOWEST AND LOCKED POSITION; CALL LIGHT AND TABLE ARE IN REACH; SIDE RAILS UP X 2. WILL ENDORSE NEXT SHIFT NURSE FOR CONTINUE PATIENT CARE.
[2022-10-23 08:00] VITALS: BP 129/72
[2022-10-23] MEDS: PANTOPRAZOLE 40 MG TABLET.DR PO SCH (08:52)
[2022-10-23] MEDS: ENSURE ENLIVE 237 ML LIQUID (VANILLA) PO SCH ×3 (08:52→17:10)
[2022-10-23] MEDS: SERTRALINE HCL 50 MG TABLET PO SCH (08:52)
[2022-10-23 11:34] LABS: CALCIUM, SERUM 8.5 mg/dL (8.5-10.1); MAGNESIUM 2.2 mg/dL (1.8-2.4); PHOSPHORUS 2.7 mg/dL (2.5-4.9); POTASSIUM 3.9 mmol/L (3.5-5.1)
[2022-10-23 11:36] LABS: BASOPHILS % (AUTO) 0.3 % (0.0-2.0); EOSINOPHILS % (AUTO) 1.5 % (0.0-6.0); HEMATOCRIT 39 % (39-51); HEMOGLOBIN 12.9 g/dL (13.5-17.5); LYMPHOCYTES # (AUTO) 1.1 K/uL (0.8-4.8); LYMPHOCYTES % (AUTO) 11.1 % (20.0-44.0); MEAN CORPUSCULAR HGB CONC 33 g/dl (31.0-36.0); MEAN CORPUSCULAR VOLUME 98 fL (80-96); MONOCYTES % (AUTO) 10.5 % (2.0-12.0); NEUTROPHILS # (AUTO) 7.5 K/uL (1.8-8.9); NEUTROPHILS % (AUTO) 76.6 % (43.0-81.0); PLATELET COUNT (AUTO) 299 K/uL (150-450); RED BLOOD CELL COUNT(AUTO) 3.98 MIL/uL (4.5-6.0); WHITE BLOOD COUNT (AUTO) 9.8 K/uL (4.3-11.0)
--- NOTE | 2022-10-23 14:20 | NUR ---
Hand Umbrella Tipper Consult SW received a consult request for homelessness. Pt. is a 61 y.o. Black male who was admitted for cellulitis and suicidal ideation. SAY met with pt. at bedside. Pt. appears disheveled and is alert and oriented x4.Pt. makes normal eye contact, had a depressed and anxious mood and congruent affect. Pt. states he is currently homeless. [place] but fears he lost his spot. Per pt. reports he is not ambulatory and is dependent with for their ADLs. Pt. reports no hx of drug use. Pt. stated she was not receiving financial assistance Pt. reported having a hx of suicidal ideation every year for the past 2-3 years during this time of year. Per pt. this time of year is hard for him. Per pt. does not have a hx of hallucinations. SAY assessed pt. for suicidal and homicidal ideation in which pt. denied homicidal ideation and reporting having suicidal thoughts. . DC plan: When asked about pt.s plans after being discharged, pt. reported he wanted [place] go [place]. SAY offered pt. information [facility] ([address] [place] [address]) in which pt. was agreeable. SAY offered pt. homelessness and mental health resources in which pt. accepted. SAY discussed with nurse regarding statements disclosed in interview in which nurse was agreeable. Year-round shelters: [facility] [address] [place] [place] [address] ; [facility] [address] [place] [address]; [facility] Errtbmu[address] [facility]. [facility] [address] Hygiene: [facility]: [address]. [place] ; [facility] [address] [facility] ; [facility] [address] . Food Resources: [facility] at [facility]- [address]44 Pol[address] Sanchez. Kindred; Meet Each Need with Dignity ([facility]) [address] [address] [place]; [facility] Food Pantry [address] [place] [facility]; [facility] 8520 Ericka [facility] [place]. Mental Health resources provided: [facility] [address] [place], [place] [id number] ; [facility] [address] [facility] [address], [place] [address] ; [facility] [address] [facility] [address] [place], [place] [id number] ; [facility] [address] [place], [place] [address] Healthcare Clinics: [facility] [address] [facility], [address] [place]. [place] ; [facility] [address] [facility] [address] [place] [address]; [facility] [address] [facility]. [place] [phone] Counseling--Outpatient [facility] [address] [facility], [place] [address] (Specializes in in-depth psychotherapy for emotional distress: anxiety, depression, interpersonal conflicts, life transitions, childhood abuse) [facility] Guidance Center [address] [place] [address] (Assist with solving problem marital difficulties, separation & divorce, aging parents, & grief, chronic & terminal illness) [facility] [address] [place] [address] (Deal with loss & grief, anxiety, marital difficulties) Homebound/Mental Health Services [address], [address] [place] [address] (Provide in-home mental services to people who are incapable of leaving their homes) Organization for Needs of the Elderly Senior Service/Resource Center [address] [place] [address] [facility] 65[address] [facility] [place] [address] PSYCHIATRIC OUTPATIENT SERVICES [facility] Partial Hospitalization and Intensive Outpatient Program (Managed Care and [place] Only)[address] [facility] [phone] [facility] Partial Hospitalization and Outpatient [address] [place], [place] [phone] [facility] [id number] [facility] [address] [place], [place] [phone] [facility] Partial Hospitalization and Outpatient Agdpftb56685 Emelita [facility] Hospital[facility], [phone] Substance Abuse resources provided included: [facility] Substance Abuse Self-Helpline ([facility]) ; [facility]LP [address] [facility]. [place] [address] ; [facility] [address] [facility] [address] ; [facility] Rehabilitation Program [address] [facility]vd[facility]ton Springs [facility] [address] ; [place] [address] [facility] [address] ; [facility] 4940 [facility] [address] ; [facility] 909 [facility] [phone] ; [facility] Substance Abuse Helpline([facility])-[facility] ; [facility] ; [facility] [place]; [facility]; [facility] [place]; [facility] Chace Fraziereduardo; [facility]; [place] [facility] Stella; [facility] Samantha; [facility], [facility]. Luc Lama; Alcoholics Anonymous -[facility]; Yoanna ; Marijuana Anonymous -[facility]; Narcotics Anonymous [email or web address];
--- NOTE | 2022-10-23 18:18 | NUR ---
END OF SHIFT SUMMARY PATIENT IS A/O X4, ON RA SATURATING WELL. IV ACCESS ON R FA #22, NS RUNNING AT 75 ML/HR. TOLERATING ABX WELL. NO REPORTS OF SI/HI IDEATION. SAFETY MEASURES MAINTAINED. BED IN LOWEST POSITION, BRAKES LOCKED. SIDE RAILS UP X2. CALL LIGHT WITHIN REACH. WILL ENDORSE CONTINUITY OF CARE TO ONCOMING SHIFT.
--- NOTE | 2022-10-23 19:30 | NUR ---
MS RN OPENING NOTE RECEIVED PATIENT IN BED, WITH HOB ELEVATED, ALERT AND ORIENTED X4. ABLE TO MAKE NEEDS KNOWN. AFEBRILE AND NOT IN ANY FORM OF ACUTE DISTRESS. BREATHING EVEN AND NON LABORED. WITH IV ACCESS ON R FA 22G RUNNING WITH NS AT 75ML/HR. SAFETY MEASURES IN PLACE. KEPT BED IN LOCKED AND IN LOW POSITION. SIDE RAILS UP X2. ADVISED TO USE THE CALL LIGHT WHEN IN NEED OF ASSISTANCE.
[2022-10-23 20:00] VITALS: BP 139/88
[2022-10-23] MEDS: TOPIRAMATE 100 MG TABLET PO SCH (21:12)
[2022-10-24] MEDS: VANCOMYCIN 1.25 GM in IV D5W 250 ML IV SCH (03:19)
[2022-10-24] MEDS: IV NS 0.9% 1,000 ML IV PRN (06:21)
--- NOTE | 2022-10-24 06:30 | NUR ---
MS RN CLOSING NOTE PATIENT IN BED, WITH HOB ELEVATED, ALERT AND ORIENTED X4. ABLE TO MAKE NEEDS KNOWN. AFEBRILE AND NOT IN ANY FORM OF ACUTE DISTRESS. BREATHING EVEN AND NON LABORED. WITH IV ACCESS ON R FA 22G RUNNING WITH NS AT 75ML/HR. MEDICATED ORDERED. CONTINUOUS ON IV ATB FOR CELLULITIS, MONITORED FOR ANY ADVERSE REACTION. OFFERED AND ENCOURAGED FLUIDS TOLERATED. ENCOURAGED TO TURN AND REPOSITION EVERY 2 HOURS AND TOLERATED TO PROMOTE PROPER CIRCULATION AND COMFORT. SAFETY MEASURES IN PLACE. KEPT BED IN LOCKED AND IN LOW POSITION. SIDE RAILS UP X2. ADVISED TO USE THE CALL LIGHT WHEN IN NEED OF ASSISTANCE. ALL NURSING NEEDS ATTENDED. ENDORSED TO INCOMING SHIFT FOR CONTINUITY OF CARE.
[2022-10-24 08:00] VITALS: BP 112/70
[2022-10-24] MEDS: ENSURE ENLIVE 237 ML LIQUID (VANILLA) PO SCH ×3 (08:00→16:07)
[2022-10-24] MEDS: SERTRALINE HCL 50 MG TABLET PO SCH (09:38)
[2022-10-24] MEDS: PANTOPRAZOLE 40 MG TABLET.DR PO SCH (09:39)
[2022-10-24] MEDS: NICOTINE PATCH (21MG) 21 MG PATCH.TD24 TD SCH (09:40)
[2022-10-24 13:46] LABS: CALCIUM, SERUM 8.7 mg/dL (8.5-10.1); CREATININE 0.9 mg/dL (0.6-1.3); MAGNESIUM 2.2 mg/dL (1.8-2.4); PHOSPHORUS 2.5 mg/dL (2.5-4.9); POTASSIUM 4.3 mmol/L (3.5-5.1)
[2022-10-24 14:26] LABS: BASOPHILS % (AUTO) 0.2 % (0.0-2.0); HEMATOCRIT 38 % (39-51); HEMOGLOBIN 12.8 g/dL (13.5-17.5); MEAN CORPUSCULAR HGB CONC 34 g/dl (31.0-36.0); MEAN CORPUSCULAR VOLUME 97 fL (80-96); MONOCYTES # (AUTO) 1.1 K/uL (0.1-1.30); MONOCYTES % (AUTO) 9.7 % (2.0-12.0); NEUTROPHILS # (AUTO) 8.8 K/uL (1.8-8.9); NEUTROPHILS % (AUTO) 80.1 % (43.0-81.0); PLATELET COUNT (AUTO) 313 K/uL (150-450); RED BLOOD CELL COUNT(AUTO) 3.95 MIL/uL (4.5-6.0); WHITE BLOOD COUNT (AUTO) 10.9 K/uL (4.3-11.0)
[2022-10-24] MEDS: VANCOMYCIN 1 GM in IV D5W 250 ML IV SCH (15:12)
[2022-10-24 16:00] VITALS: BP 105/63
[2022-10-24] MEDS: HYDROCODONE/APAP 10/325MG TABLET PO PRN (16:08)
--- NOTE | 2022-10-24 16:20 | NUR ---
IV TO RFA LEAKING, NO SWELLING NOTED. LIQUID SUGAR FORTIFIER ATTEMPTED TO START A PERIPHERAL LINE, PATIENT REFUSED. REPORTED TO CHARGE NURSE. SEAN Pollard RN
--- NOTE | 2022-10-24 18:50 | NUR ---
PROGRAM ANALYST ATTEMPTED TO START IV TO CONTINUE ABT, PATIENT STILL REFUSED. CHARGE NURSE AWARE.
[2022-10-24] MEDS: DULOXETINE HCL 30 MG CAPSULE.DR PO SCH (19:00)
--- NOTE | 2022-10-24 19:51 | NUR ---
MS RN OPENING NOTE RECEIVED PATIENT IN BED AAOX4. ABLE TO MAKE NEEDS KNOWN.HERO WELL ON RM AIR NO SIGN SOB/DISTRESS NOTED,BREATHING EVEN AND NON LABORED.NO COMPLAIN OF PAIN/DISCOMFORT AT THIS TIME, WITH IV ACCESS 22G RFA INFILTRATED ENDORSED BY MORNING NURSE,SAFETY MEASURES IN PLACE. KEPT BED IN LOCKED AND IN LOW POSITION. SIDE RAILS UP X2.CALL LIGHT WHEN IN REACH,WILL CONTINUE TO MONITOR.
[2022-10-24 20:00] VITALS: BP 124/75
[2022-10-24] MEDS: TOPIRAMATE 100 MG TABLET PO SCH (21:08)
[2022-10-25] MEDS: VANCOMYCIN 1 GM in IV D5W 250 ML IV SCH ×2 (02:41→15:02)
--- NOTE | 2022-10-25 06:27 | NUR ---
MS RN CLOSING NOTES; PATIENT IN BED AAOX4. ABLE TO MAKE NEEDS KNOWN.HERO WELL ON RM AIR NO SIGN SOB/DISTRESS NOTED,BREATHING EVEN AND NON LABORED.NO COMPLAIN OF PAIN/DISCOMFORT DURING SHIFT,DUE MEDS GIVEN ORDER,ALL NEEDS ATTENDED, WITH IV ACCESS RFA 22G RUNNING NS 75ML/HR HERO WELL,SAFETY MEASURES IN PLACE. KEPT BED IN LOCKED AND IN LOW POSITION. SIDE RAILS UP X2.CALL LIGHT WHEN IN REACH,WILL ENDORSED TO NEXT SHIFT.
[2022-10-25 08:00] VITALS: BP 100/61
[2022-10-25] MEDS: NICOTINE PATCH (21MG) 21 MG PATCH.TD24 TD SCH (08:55)
[2022-10-25] MEDS: PANTOPRAZOLE 40 MG TABLET.DR PO SCH (08:57)
[2022-10-25] MEDS: ENSURE ENLIVE 237 ML LIQUID (VANILLA) PO SCH ×3 (08:58→17:00)
--- NOTE | 2022-10-25 09:00 | NUR ---
Med Cymbalta was not given on previous shift. charted not given
[2022-10-25] MEDS: DULOXETINE HCL 30 MG CAPSULE.DR PO SCH (09:05)
[2022-10-25 16:00] VITALS: BP_SYST 123; BP_SYST 130; BP_DIAS 77
[2022-10-25] MEDS ORDERED: DOXY-326 PO (17:13)
[2022-10-25] MEDS ORDERED: DULO30CA2 PO (17:13)
[2022-10-25] MEDS ORDERED: Hydrocodone/Apap 5/325MG PO (17:13)
--- NOTE | 2022-10-25 18:31 | NUR ---
Patient discharge ordered acknowledged. Patient stated that he does not want to leave the hospital at this time, since he still feels as though he wants to hurt himself. Hospital high school social studies teacher informed; nurse practitioner aware.
[2022-10-25 19:11] LABS: CALCIUM, SERUM 8.9 mg/dL (8.5-10.1); CREATININE 0.9 mg/dL (0.6-1.3); POTASSIUM 3.8 mmol/L (3.5-5.1)
--- NOTE | 2022-10-25 19:30 | NUR ---
noc rn note received patient in bed, a/ox4. no s/s of apparent distress on room air. no c/o pain at this time. bila. leg noted to be dry but nothing open. Rt. leg noted with scab, dried. no edema noted. patient wheelchair noted on bedside. rt. fa #22g not running anything at this time. call light within reach. safety in place. will continue with patient's care plan.
[2022-10-25 20:40] VITALS: BP 100/59
[2022-10-25] MEDS: TOPIRAMATE 100 MG TABLET PO SCH (22:48)
[2022-10-25] MEDS: HYDROCODONE/APAP 10/325MG TABLET PO PRN (23:07)
[2022-10-26] MEDS: VANCOMYCIN 1 GM in IV D5W 250 ML IV SCH (03:15)
[2022-10-26] MEDS ORDERED: SULFAMETHOXAZOLE/TRIMETHOPRIM 15 ML in IV D5W 250 ML IV SCH ×2 (08:00→16:00)
[2022-10-26] MEDS: ENSURE ENLIVE 237 ML LIQUID (VANILLA) PO SCH ×3 (08:00→17:42)
[2022-10-26 08:10] LABS: CALCIUM, SERUM 9.4 mg/dL (8.5-10.1); CREATININE 0.9 mg/dL (0.6-1.3); POTASSIUM 4.2 mmol/L (3.5-5.1)
[2022-10-26 08:38] VITALS: BP 112/64
[2022-10-26] MEDS ORDERED: TOPIRAMATE 25 MG TABLET PO SCH (09:00)
[2022-10-26] MEDS: DULOXETINE HCL 30 MG CAPSULE.DR PO SCH (09:30)
[2022-10-26] MEDS: NICOTINE PATCH (21MG) 21 MG PATCH.TD24 TD SCH (09:30)
[2022-10-26] MEDS: PANTOPRAZOLE 40 MG TABLET.DR PO SCH (09:30)
--- NOTE | 2022-10-26 10:12 | NUR ---
SAY faxed over note that pt. is medically clear to [facility]. SAY faxed clinicals to [facility] TEL:[phone] fax:[phone] for for voluntary psychiatric treatment at [facility] [[address] [place] [address] FAX:[phone]].
--- NOTE | 2022-10-26 14:28 | NUR ---
Patient was accepted to [facility] under the care of Dr. Perez. Pt. will be in room 311/2. SAY confirmed with pt.'s nurse, Maria De Jesus who stated he completed the nurse to nurse report by calling [phone] ext#[phone]. SAY called [facility] [phone] and spoke to Amairani to set up transportation for this wheelchair bound pt. to be transferred to [facility] [[facility] [place], [place] [address] ]. REFERENCE #[id number] Pt. will be picked up at 1630. SAY notified pt.'s nurse, Maria De Jesus.
--- NOTE | 2022-10-26 14:37 | NUR ---
Report given to WALTER Banks at receiving facility ([phone]). Patient accepted by Dr. Perez and assigned to Bed 9.
[2022-10-26] MEDS ORDERED: SULF1TAB48 PO (14:59)
[2022-10-26 16:02] VITALS: BP 124/72
--- NOTE | 2022-10-26 17:56 | NUR ---
Called transportation service and spoke agent Des. Nurse was informed that transportation has been delayed due to their inability to assign a yard truck driver. Nurse was assured the patient will be transported as soon as a yard truck driver designated.
--- NOTE | 2022-10-26 19:22 | NUR ---
Patient discharged. IV removed per protocol without complications. Patient departed unit via wheelchair transportation.
== END 2022-10-26 19:22 | DRG 383 ==
LOC: ER 23:17 → TRANSITION 10-21 06:53 → MED 10-21 11:42
PROVIDERS: ADMIT Registered Nurse; ATTEND Registered Nurse
DX: L03.115 Cellulitis of right lower limb (principal); R45.851 Suicidal ideations; M79.7 Fibromyalgia; D64.9 Anemia, unspecified; G62.9 Polyneuropathy, unspecified; M19.90 Unspecified osteoarthritis, unspecified site; Z20.822 Contact with and (suspected) exposure to COVID-19; F17.210 Nicotine dependence, cigarettes, uncomplicated; F19.10 Other psychoactive substance abuse, uncomplicated; L03.116 Cellulitis of left lower limb; M79.672 Pain in left foot; M79.671 Pain in right foot; I73.9 Peripheral vascular disease, unspecified; Z71.6 Tobacco abuse counseling; F30.10 Manic episode without psychotic symptoms, unspecified; B96.89 Other specified bacterial agents as the cause of diseases classified elsewhere
CPT/HCPCS: 36415; 80048-TC; 80076-TC; 80202-TC; 81001; 83605-TC; 83735-TC; 84100-TC; 85025-TC; 86140-TC; 86803; 87040-TC; 87081-TC; 87806; C9803; G0378; G0480; J3370; J3490; J7030; J7060

== ENCOUNTER 2022-11-03 15:59 | Emergency (ER) | payer OTHER ==
[~2022-11-03] VITALS: Ht 172.7 cm; Wt 61.2 kg
[~2022-11-03 15:59] MED LIST changes: -ACET-73 PO; -CYCL5TAB PO; +DULO30CA2 PO; -FAMO20TA8 PO; -FLUR30CA13 PO; -GABA600T PO; -HYDR25TA4 PO; +Hydrocodone/Apap 5/325MG PO; -PREG50CA PO; -SERT50TA PO; +SULF1TAB48 PO; -[UNRECOGNIZED DRUG - OTHER] PO
--- NOTE | 2022-11-03 16:38 | NUR ---
CALLED IN TRIAGE, NO ANSWER
[2022-11-03 17:31] LABS: BASOPHILS % (AUTO) 0.3 % (0.0-2.0); EOSINOPHILS % (AUTO) 1.9 % (0.0-6.0); HEMATOCRIT 38 % (39-51); HEMOGLOBIN 12.6 g/dL (13.5-17.5); LYMPHOCYTES # (AUTO) 1.1 K/uL (0.8-4.8); LYMPHOCYTES % (AUTO) 15.1 % (20.0-44.0); MEAN CORPUSCULAR HGB CONC 33 g/dl (31.0-36.0); MEAN CORPUSCULAR VOLUME 99 fL (80-96); MONOCYTES # (AUTO) 0.7 K/uL (0.1-1.30); MONOCYTES % (AUTO) 9.4 % (2.0-12.0); NEUTROPHILS # (AUTO) 5.2 K/uL (1.8-8.9); NEUTROPHILS % (AUTO) 73.3 % (43.0-81.0); PLATELET COUNT (AUTO) 339 K/uL (150-450); RED BLOOD CELL COUNT(AUTO) 3.87 MIL/uL (4.5-6.0)
[2022-11-03 18:36] LABS: ALANINE AMINOTRANSFERASE 28 U/L (12-78); ALBUMIN 3.4 g/dL (3.4-5.0); ALCOHOL, BLOOD < 3 mg/dL (0-0); ALKALINE PHOSPHATASE 71 U/L (46-116); ASPARTATE AMINOTRANSFERASE 21 U/L (15-37); BILIRUBIN,DIRECT 0.1 mg/dL (0.0-0.2); BILIRUBIN,TOTAL 0.2 mg/dL (0.2-1.0); CALCIUM, SERUM 8.7 mg/dL (8.5-10.1); CARBON DIOXIDE 32 mmol/L (21-32); CHLORIDE 100 mmol/L (98-107); CREATININE 0.9 mg/dL (0.6-1.3); GLUCOSE 110 mg/dL (74-106); POTASSIUM 4.1 mmol/L (3.5-5.1); SODIUM SERUM 138 mmol/L (136-145); TOTAL PROTEIN, SERUM 7.2 g/dL (6.4-8.2); UREA NITROGEN, BLOOD 12 mg/dL (7-18)
[2022-11-03 18:43] LABS: ACETAMINOPHEN 0 ug/ml (10-30)
--- NOTE | 2022-11-03 21:41 | NUR ---
URINE COLLECTED AND SENT TO LAB
--- NOTE | 2022-11-03 21:45 | NUR ---
urine collected and sent to lab
[2022-11-03 22:11] LABS: BILIRUBIN,URINE NEGATIVE (NEGATIVE); COLOR,URINE YELLOW (YELLOW); LEUKOCYTE ESTERASE ,URINE NEGATIVE (NEGATIVE); NITRITE, URINE NEGATIVE (NEGATIVE); PH,URINE 7.5 (5.0-8.0); PROTEIN,URINE NEGATIVE (NEGATIVE); UGLUCOSE NEGATIVE (NEGATIVE)
[2022-11-03 22:48] LABS: RBC,URINE 0-2 /HPF (0-2)
[2022-11-03 22:49] LABS: BACTERIA,URINE Few /HPF (None Seen); SQUAMOUS EPITHELIAL CELL,UR Few /HPF (None Seen); WBC,URINE 0-2 /HPF (0-3)
--- NOTE | 2022-11-03 23:27 | NUR ---
FAXED FACE SHEET AND CLINICALS TO [facility]
--- NOTE | 2022-11-04 00:39 | NUR ---
SECURITY ACCOMPANIED PT FOR A QUICK SMOKE BREAK OUTSIDE.
--- NOTE | 2022-11-04 02:31 | NUR ---
ACCEPTED AT [facility] UNDER DR. MICHEL NUMBER FOR REPORT: [phone]
[2022-11-04 02:39] VITALS: BP 148/92
--- NOTE | 2022-11-04 03:03 | NUR ---
[facility] CALLED FOR BLS GOING TO [facility] ETA - 1 HOUR
--- NOTE | 2022-11-04 04:14 | NUR ---
ON HOLD FOR 30 MINUTES WITH MULTIPLE ATTEMPT AND NO ANSWER. JEANETTE AT [facility] INTAKE MADE AWARE
--- NOTE | 2022-11-04 04:22 | NUR ---
PICKED UP BY [facility] AND TRANSFERRED TO [facility] IN STABLE CONDITION
== END 2022-11-04 04:42 ==
LOC: ER 16:13
DX: R45.851 Suicidal ideations (principal); Z20.822 Contact with and (suspected) exposure to COVID-19; F14.10 Cocaine abuse, uncomplicated; M79.7 Fibromyalgia; G62.9 Polyneuropathy, unspecified; M19.90 Unspecified osteoarthritis, unspecified site; Z59.00 Homelessness unspecified
CPT/HCPCS: 99285; 85025; 80048; 80076; 81001; 36415; 87426; 80143; 80320; 80307; C9803; G0480

== ENCOUNTER 2023-03-18 10:05 | Emergency (ER) | payer MEDICAID, OTHER ==
[~2023-03-18] VITALS: Ht 172.7 cm; Wt 59.0 kg
--- NOTE | 2023-03-18 10:25 | NUR ---
R KNEE, HAMSTRING PAIN FROM INJURY 2 MONTHS AGO. +OPEN WOUND BOTH FEET ALSO SUICIDAL, WANTS VOLUNTARY PSYCH ADMIT TO [facility]. PT BELONGING PLACED IN SECURED LOCKER. PT PLACED IN HOSPITAL GOWN. SECURITY CALLED FOR WANDING. AWAITING MD ORDERS.
[2023-03-18 10:30] VITALS: BP 101/75
[2023-03-18] MEDS ORDERED: KETOROLAC TROMETHAMINE INJ 30 MG/ML VIAL IM ONE (11:00)
[2023-03-18] MEDS ORDERED: KETOROLAC TROMETHAMINE INJ 30 MG/ML VIAL ONE (11:34)
[2023-03-18] MEDS ORDERED: KETO10TA2 PO (13:10)
[2023-03-18 13:53] LABS: BASOPHILS # (AUTO) 0.1 K/uL (0.0-0.2); BASOPHILS % (AUTO) 1.5 % (0.0-2.0); HEMATOCRIT 42 % (39-51); HEMOGLOBIN 13.9 g/dL (13.5-17.5); LYMPHOCYTES # (AUTO) 1.2 K/uL (0.8-4.8); LYMPHOCYTES % (AUTO) 18.4 % (20.0-44.0); MEAN CORPUSCULAR HGB CONC 33 g/dl (31.0-36.0); MEAN CORPUSCULAR VOLUME 96 fL (80-96); MONOCYTES # (AUTO) 0.8 K/uL (0.1-1.30); MONOCYTES % (AUTO) 11.7 % (2.0-12.0); NEUTROPHILS # (AUTO) 4.6 K/uL (1.8-8.9); NEUTROPHILS % (AUTO) 67.4 % (43.0-81.0); PLATELET COUNT (AUTO) 237 K/uL (150-450); RED BLOOD CELL COUNT(AUTO) 4.37 MIL/uL (4.5-6.0); WHITE BLOOD COUNT (AUTO) 6.8 K/uL (4.3-11.0)
[2023-03-18 14:17] LABS: CALCIUM, SERUM 9.4 mg/dL (8.5-10.1); CARBON DIOXIDE 28 mmol/L (21-32); CHLORIDE 103 mmol/L (98-107); CREATININE 1.1 mg/dL (0.6-1.3); GLUCOSE 123 mg/dL (74-106); POTASSIUM 3.7 mmol/L (3.5-5.1); SODIUM SERUM 140 mmol/L (136-145); UREA NITROGEN, BLOOD 27 mg/dL (7-18)
[2023-03-18 14:23] LABS: ALANINE AMINOTRANSFERASE 27 U/L (12-78); ALBUMIN 3.5 g/dL (3.4-5.0); ALCOHOL, BLOOD < 3 mg/dL (0-0); ALKALINE PHOSPHATASE 78 U/L (46-116); ASPARTATE AMINOTRANSFERASE 21 U/L (15-37); BILIRUBIN,DIRECT 0.1 mg/dL (0.0-0.2); BILIRUBIN,TOTAL 0.6 mg/dL (0.2-1.0); TOTAL PROTEIN, SERUM 7.1 g/dL (6.4-8.2)
--- NOTE | 2023-03-18 14:24 | NUR ---
SENT PT CLINICALS TO [facility]
[2023-03-18 16:47] LABS: BILIRUBIN,URINE 1+ (NEGATIVE); COLOR,URINE YELLOW (YELLOW); LEUKOCYTE ESTERASE ,URINE NEGATIVE (NEGATIVE); NITRITE, URINE NEGATIVE (NEGATIVE); PROTEIN,URINE 1+ mg/dl (NEGATIVE); UGLUCOSE NEGATIVE (NEGATIVE)
[2023-03-18 17:11] LABS: BACTERIA,URINE 1+ /HPF (None Seen); MUCUS,URINE Few /LPF (None Seen); SQUAMOUS EPITHELIAL CELL,UR None Seen /HPF (None Seen); WBC,URINE NONE SEEN /HPF (0-3)
[2023-03-18] MEDS ORDERED: ACETAMINOPHEN ES 500 MG TABLET PO ONE (19:30)
[2023-03-18] MEDS ORDERED: NAPROXEN 250 MG TABLET ONE (23:13)
[2023-03-18] MEDS ORDERED: NAPROXEN 500 MG TABLET PO SCH (23:30)
--- NOTE | 2023-03-19 08:45 | NUR ---
[facility]IND[facility]. PLEASE CALL [phone] FOR REPORT.
--- NOTE | 2023-03-19 08:53 | NUR ---
CALLED [facility] FOR TRANSPORT ETA 20 MINS.
--- NOTE | 2023-03-19 09:43 | NUR ---
trasnported to [facility] via [facility] in stable condition.
== END 2023-03-19 09:45 ==
LOC: ER 10:24
DX: R45.851 Suicidal ideations (principal); L97.529 Non-pressure chronic ulcer of other part of left foot with unspecified severity; L97.519 Non-pressure chronic ulcer of other part of right foot with unspecified severity; M79.7 Fibromyalgia; M19.90 Unspecified osteoarthritis, unspecified site; F17.200 Nicotine dependence, unspecified, uncomplicated; Z88.8 Allergy status to other drugs, medicaments and biological substances; Z59.00 Homelessness unspecified; Z20.822 Contact with and (suspected) exposure to COVID-19
CPT/HCPCS: 99285; 96372; 73630 ×2; 85025; 80048; 80076; 81001; 36415; 87426; 80143; 80320; 80307; J1885; C9803; G0480

== ENCOUNTER 2023-03-29 11:04 | Emergency (ER) | payer OTHER ==
[~2023-03-29] VITALS: Ht 172.7 cm; Wt 61.2 kg
[~2023-03-29 11:04] MED LIST changes: +KETO10TA2 PO
--- NOTE | 2023-03-29 11:35 | NUR ---
called in ed waiting room no response.
--- NOTE | 2023-03-29 12:30 | NUR ---
PT WHEELED TO ED BED 13 C/O SUICIAL IDEATION W NO SPECIFIC PLAN SSIS DEVELOPER. PT HAS MULTIPLE ED VISITS W/ SAME COMPLAINTS. ALSO C/O R KNEE PAIN FROM A TRAUMA FEW DAYS AGO. PT IS REQUESTING FOR VOLUNTARY PSYCH ADMISSION TO [facility].
--- NOTE | 2023-03-29 12:33 | NUR ---
DR JOHNSON AT BEDSIDE FOR EVAL.
--- NOTE | 2023-03-29 12:47 | NUR ---
HOT STONE SETTER AT BEDSIDE FOR BLOOD DRAW.
[2023-03-29 13:17] LABS: BASOPHILS % (AUTO) 0.3 % (0.0-2.0); EOSINOPHILS % (AUTO) 0.9 % (0.0-6.0); HEMATOCRIT 47 % (39-51); HEMOGLOBIN 15.3 g/dL (13.5-17.5); LYMPHOCYTES # (AUTO) 1.3 K/uL (0.8-4.8); LYMPHOCYTES % (AUTO) 11.4 % (20.0-44.0); MEAN CORPUSCULAR HGB CONC 33 g/dl (31.0-36.0); MEAN CORPUSCULAR VOLUME 98 fL (80-96); MONOCYTES # (AUTO) 1.2 K/uL (0.1-1.30); MONOCYTES % (AUTO) 10.4 % (2.0-12.0); NEUTROPHILS # (AUTO) 8.7 K/uL (1.8-8.9); PLATELET COUNT (AUTO) 246 K/uL (150-450); RED BLOOD CELL COUNT(AUTO) 4.76 MIL/uL (4.5-6.0); WHITE BLOOD COUNT (AUTO) 11.3 K/uL (4.3-11.0)
[2023-03-29 13:24] LABS: CALCIUM, SERUM 9.9 mg/dL (8.5-10.1); CARBON DIOXIDE 29 mmol/L (21-32); CHLORIDE 102 mmol/L (98-107); CREATININE 0.9 mg/dL (0.6-1.3); GLUCOSE 107 mg/dL (74-106); POTASSIUM 4.6 mmol/L (3.5-5.1); SODIUM SERUM 137 mmol/L (136-145); UREA NITROGEN, BLOOD 25 mg/dL (7-18)
[2023-03-29 13:38] LABS: ALANINE AMINOTRANSFERASE 36 U/L (12-78); ALKALINE PHOSPHATASE 66 U/L (46-116); ASPARTATE AMINOTRANSFERASE 28 U/L (15-37); BILIRUBIN,DIRECT 0.1 mg/dL (0.0-0.2); BILIRUBIN,TOTAL 0.7 mg/dL (0.2-1.0); TOTAL PROTEIN, SERUM 8.4 g/dL (6.4-8.2)
[2023-03-29 13:48] LABS: ALCOHOL, BLOOD < 3 mg/dL (0-0)
--- NOTE | 2023-03-29 14:47 | NUR ---
COVID SWAB COLLECTED. SENT TO LAB. UNABLE TO PROVIDE URINE SAMPLE AT THIS TIME. LUNCH TRAY/ FLUIDS PROVIDED.
--- NOTE | 2023-03-29 16:28 | NUR ---
STILL UNABLE TO PROVIDE URINE SAMPLE. URINAL AT BEDSIDE.
[2023-03-29 19:42] LABS: BILIRUBIN,URINE NEGATIVE (NEGATIVE); COLOR,URINE YELLOW (YELLOW); LEUKOCYTE ESTERASE ,URINE NEGATIVE (NEGATIVE); NITRITE, URINE NEGATIVE (NEGATIVE); PROTEIN,URINE TRACE mg/dl (NEGATIVE); UGLUCOSE NEGATIVE (NEGATIVE); UROBILINOGEN,URINE 0.2 EU/dL (0.2)
[2023-03-29 19:46] LABS: BACTERIA,URINE None seen /HPF (None Seen); MUCUS,URINE Few /LPF (None Seen); RBC,URINE 0-2 /HPF (0-2); SQUAMOUS EPITHELIAL CELL,UR None Seen /HPF (None Seen); WBC,URINE NONE SEEN /HPF (0-3)
--- NOTE | 2023-03-30 00:28 | NUR ---
CLNICALS FAXED TO [facility]
--- NOTE | 2023-03-30 01:28 | NUR ---
SPOKE TO ASHANTI AT [facility] . NO BED AVAILABLE UNTIL 10 AM
[2023-03-30] MEDS ORDERED: ACETAMINOPHEN 325 MG TABLET ONE (04:45)
[2023-03-30] MEDS ORDERED: ACETAMINOPHEN 325 MG TABLET PO ONE (05:00)
--- NOTE | 2023-03-30 09:20 | NUR ---
THE PATIENT IS SERVED WITH BREAKFAST. HERO IT WELL.
--- NOTE | 2023-03-30 12:00 | NUR ---
LUNCH SERVED. THE PATIENT TOLERATED WELL.
--- NOTE | 2023-03-30 12:15 | NUR ---
PROVIDED WITH MEAL TRAY. STABLE VITALS.
[2023-03-30 15:03] VITALS: BP 118/72
--- NOTE | 2023-03-30 16:13 | NUR ---
CALLED [facility] FOR TRANSPORT ETA 1703
--- NOTE | 2023-03-30 17:13 | NUR ---
PT TRANSPORTED VIA [facility] IN STABLE CONDITION.
--- NOTE | 2023-03-30 17:17 | NUR ---
Patient discharged to [facility] in stable condition. Written and verbal after care instructions given. The patient is picked up by arranged transpo.
== END 2023-03-30 17:17 ==
LOC: ER 11:08
DX: F31.9 Bipolar disorder, unspecified (principal); F17.200 Nicotine dependence, unspecified, uncomplicated; Z59.00 Homelessness unspecified; Z79.899 Other long term (current) drug therapy; Z20.822 Contact with and (suspected) exposure to COVID-19; Z88.1 Allergy status to other antibiotic agents
CPT/HCPCS: 99285; 85025; 80048; 80076; 81001; 36415; 87426; 80143; 80320; 80307; A4223; C9803; G0480

== ENCOUNTER 2023-04-11 00:14 | Emergency (ER) | payer MEDICAID, OTHER ==
[~2023-04-11] VITALS: Ht 172.7 cm; Wt 61.2 kg
--- NOTE | 2023-04-11 01:27 | NUR ---
BIBS C/O MULTIPLE FALLS TODAY, DENIES HEAD TRAUMA DENIES KO. REQUESTING VOLUNTARY PSYCH INTAKE. PT A/OX3. TOLERATING R/A WELL WITH NO RESP DISTRESS. PT IN GOWN, BELONGINGS IN LOCKER, WANDED BY SECURITY. SAFETY MEASURES IN PLACE.
[2023-04-11] MEDS ORDERED: IBUPROFEN 600 MG TABLET PO ONE (01:30)
[2023-04-11] MEDS ORDERED: ACETAMINOPHEN ES 500 MG TABLET PO ONE (01:30)
--- NOTE | 2023-04-11 02:10 | NUR ---
PROVIDED PT WITH URINAL; AWAITING URINE SAMPLE.
[2023-04-11] MEDS ORDERED: ACETAMINOPHEN ES 500 MG TABLET ONE (02:19)
[2023-04-11] MEDS ORDERED: IBUPROFEN 600 MG TABLET ONE (02:20)
[2023-04-11 02:24] LABS: BASOPHILS % (AUTO) 0.5 % (0.0-2.0); EOSINOPHILS % (AUTO) 1.6 % (0.0-6.0); HEMATOCRIT 40 % (39-51); HEMOGLOBIN 13.2 g/dL (13.5-17.5); LYMPHOCYTES # (AUTO) 1.4 K/uL (0.8-4.8); LYMPHOCYTES % (AUTO) 19.8 % (20.0-44.0); MEAN CORPUSCULAR HGB CONC 33 g/dl (31.0-36.0); MEAN CORPUSCULAR VOLUME 97 fL (80-96); MONOCYTES % (AUTO) 13.5 % (2.0-12.0); NEUTROPHILS # (AUTO) 4.7 K/uL (1.8-8.9); NEUTROPHILS % (AUTO) 64.6 % (43.0-81.0); PLATELET COUNT (AUTO) 264 K/uL (150-450); RED BLOOD CELL COUNT(AUTO) 4.09 MIL/uL (4.5-6.0); WHITE BLOOD COUNT (AUTO) 7.2 K/uL (4.3-11.0)
[2023-04-11 02:39] LABS: ALANINE AMINOTRANSFERASE 34 U/L (12-78); ALBUMIN 3.4 g/dL (3.4-5.0); ALKALINE PHOSPHATASE 74 U/L (46-116); ASPARTATE AMINOTRANSFERASE 19 U/L (15-37); BILIRUBIN,DIRECT 0.1 mg/dL (0.0-0.2); BILIRUBIN,TOTAL 0.4 mg/dL (0.2-1.0); CALCIUM, SERUM 9.5 mg/dL (8.5-10.1); CARBON DIOXIDE 28 mmol/L (21-32); CHLORIDE 104 mmol/L (98-107); CREATININE 1.1 mg/dL (0.6-1.3); GLUCOSE 131 mg/dL (74-106); POTASSIUM 3.7 mmol/L (3.5-5.1); SODIUM SERUM 140 mmol/L (136-145); TOTAL PROTEIN, SERUM 7.4 g/dL (6.4-8.2); UREA NITROGEN, BLOOD 29 mg/dL (7-18)
[2023-04-11 02:54] LABS: ALCOHOL, BLOOD < 3 mg/dL (0-10)
--- NOTE | 2023-04-11 05:54 | NUR ---
ENCOURAGED PT TO PROVIDE URINE SAMPLE. AWAITING URINE SAMPLE
[2023-04-11 09:07] LABS: BACTERIA,URINE Rare /HPF (None Seen); BILIRUBIN,URINE 1+ (NEGATIVE); COLOR,URINE DARK YELLOW (YELLOW); LEUKOCYTE ESTERASE ,URINE NEGATIVE (NEGATIVE); NITRITE, URINE NEGATIVE (NEGATIVE); PROTEIN,URINE NEGATIVE (NEGATIVE); SQUAMOUS EPITHELIAL CELL,UR Few /HPF (None Seen); UGLUCOSE NEGATIVE (NEGATIVE)
--- NOTE | 2023-04-11 10:30 | NUR ---
COVID SWAB DONE , SENT TO LAB
--- NOTE | 2023-04-11 11:00 | NUR ---
[facility] - CALL REPORT [phone] . PT READY AT 13:00 . WE NEED TO ARRANGE TRANPORTATION
--- NOTE | 2023-04-11 11:16 | NUR ---
Transport was arranged through [facility] at 11:14
[2023-04-11 12:10] VITALS: BP 118/79
--- NOTE | 2023-04-11 12:14 | NUR ---
CALLED [facility] TO GIVE REPORT [phone]. NO ANSWER
--- NOTE | 2023-04-11 13:04 | NUR ---
CALLED [facility] FOR REPORT AGAIN [phone]. NO ANSWER
--- NOTE | 2023-04-11 13:49 | NUR ---
TRANSPORTED VIA [facility] TO [facility] IN STABLE CONDITION.
== END 2023-04-11 13:51 ==
LOC: ER 00:35
DX: R45.851 Suicidal ideations (principal); F17.200 Nicotine dependence, unspecified, uncomplicated; Z59.00 Homelessness unspecified; Z79.899 Other long term (current) drug therapy; Z20.822 Contact with and (suspected) exposure to COVID-19; Z88.1 Allergy status to other antibiotic agents
CPT/HCPCS: 99285; 85025; 80048; 80076; 81001; 36415; 87426; 80143; 80320; 80307; C9803; G0480

== ENCOUNTER 2024-07-01 01:38 | Emergency (ER) | payer MEDICAID, OTHER ==
[~2024-07-01] VITALS: Ht 172.7 cm; Wt 68.0 kg
[~2024-07-01 01:38] MED LIST changes: +AMOX-430 PO
[2024-07-01 02:59] LABS: BASOPHILS % (AUTO) 0.8 % (0.0-2.0); EOSINOPHILS # (AUTO) 0.1 K/uL (0.0-0.7); HEMATOCRIT 43 % (39-51); HEMOGLOBIN 14.1 g/dL (13.5-17.5); LYMPHOCYTES # (AUTO) 1.5 K/uL (0.8-4.8); LYMPHOCYTES % (AUTO) 23.7 % (20.0-44.0); MEAN CORPUSCULAR HEMOGLOBIN 32 PG (26.0-33.0); MEAN CORPUSCULAR HGB CONC 33 g/dl (31.0-36.0); MEAN CORPUSCULAR VOLUME 98 fL (80-96); MONOCYTES # (AUTO) 0.8 K/uL (0.1-1.30); NEUTROPHILS # (AUTO) 3.9 K/uL (1.8-8.9); NEUTROPHILS % (AUTO) 61.5 % (43.0-81.0); PLATELET COUNT (AUTO) 229 K/uL (150-450); RED BLOOD CELL COUNT(AUTO) 4.37 MIL/uL (4.5-6.0); RED CELL DISTRIBUTION WIDTH 13.2 % (11.5-15.0); WHITE BLOOD COUNT (AUTO) 6.3 K/uL (4.3-11.0)
[2024-07-01 03:03] LABS: APPEARANCE,URINE CLEAR (CLEAR); BILIRUBIN,URINE 1+ (NEGATIVE); BLOOD, URINE 2+ Ery/uL (NEGATIVE); COLOR,URINE DARK YELLOW (YELLOW); KETONES,URINE NEGATIVE (NEGATIVE); LEUKOCYTE ESTERASE ,URINE NEGATIVE (NEGATIVE); NITRITE, URINE NEGATIVE (NEGATIVE); PH,URINE 5.5 (5.0-8.0); PROTEIN,URINE 1+ mg/dl (NEGATIVE); UGLUCOSE TRACE mg/dL (NEGATIVE)
[2024-07-01 03:04] LABS: ADD URINE CULTURE NO; BACTERIA,URINE Rare /HPF (None Seen); SQUAMOUS EPITHELIAL CELL,UR Few /HPF (None Seen); WBC,URINE 0-2 /HPF (0-3)
[2024-07-01 03:19] LABS: ALANINE AMINOTRANSFERASE 24 U/L (12-78); ALBUMIN 3.7 g/dL (3.4-5.0); ALCOHOL, BLOOD < 3 mg/dL (0-10); ALKALINE PHOSPHATASE 82 U/L (46-116); ASPARTATE AMINOTRANSFERASE 20 U/L (15-37); BILIRUBIN,DIRECT 0.2 mg/dL (0.0-0.2); BILIRUBIN,TOTAL 0.7 mg/dL (0.2-1.0); CALCIUM, SERUM 9.5 mg/dL (8.5-10.1); CARBON DIOXIDE 32 mmol/L (21-32); CHLORIDE 105 mmol/L (98-107); CREATININE 0.9 mg/dL (0.6-1.3); GLUCOSE 83 mg/dL (74-106); POTASSIUM 3.9 mmol/L (3.5-5.1); SODIUM SERUM 142 mmol/L (136-145); TOTAL PROTEIN, SERUM 7.9 g/dL (6.4-8.2); UREA NITROGEN, BLOOD 8 mg/dL (7-18)
[2024-07-01 03:21] LABS: ACETAMINOPHEN <10 ug/ml (10-30); SALICYLATE 0.5 mg/dL (2.8-20.0)
[2024-07-01 03:21] LABS: AMPHETAMINE, URINE NEGATIVE (NEGATIVE); BARBITURATE, URINE NEGATIVE (NEGATIVE); BENZODIAZEPINE, URINE NEGATIVE (NEGATIVE); CANNABINOID, URINE NEGATIVE (NEGATIVE); COCCAINE, URINE POSITIVE (NEGATIVE); OPIATE, URINE NEGATIVE (NEGATIVE); PHENCYCLIDINE SCREEN,URINE NEGATIVE (NEGATIVE)
[2024-07-01 06:30] VITALS: BP 121/79; TEMP 98.1; O2SAT 98
== END 2024-07-01 11:10 | disposition home or self-care (01) ==
LOC: ER 01:44
DX: R45.851 Suicidal ideations (principal); F14.10 Cocaine abuse, uncomplicated; F17.200 Nicotine dependence, unspecified, uncomplicated; Z79.899 Other long term (current) drug therapy; Z79.891 Long term (current) use of opiate analgesic; Z20.822 Contact with and (suspected) exposure to COVID-19; Z59.00 Homelessness unspecified; Z88.1 Allergy status to other antibiotic agents
CPT/HCPCS: 36415; 80048-TC; 80076-TC; 81001; 85025-TC; G0480

== ENCOUNTER 2025-11-01 09:16 | Emergency (ER) | payer OTHER ==
[~2025-11-01] VITALS: Ht 172.7 cm; Wt 73.9 kg
[~2025-11-01 09:16] MED LIST changes: +CEFD300C3 PO; +IBUP-1955 PO
[2025-11-01 10:32] LABS: APPEARANCE,URINE CLEAR (CLEAR); BLOOD, URINE 1+ Ery/uL (NEGATIVE); LEUKOCYTE ESTERASE ,URINE NEGATIVE (NEGATIVE); NITRITE, URINE NEGATIVE (NEGATIVE); UGLUCOSE NEGATIVE (NEGATIVE)
[2025-11-01 10:39] LABS: PLATELET COUNT (AUTO) 231 K/uL (150-450); RED BLOOD CELL COUNT(AUTO) 4.22 MIL/uL (4.5-6.0); RED CELL DISTRIBUTION WIDTH 12.7 % (11.5-15.0); WHITE BLOOD COUNT (AUTO) 5.2 K/uL (4.3-11.0)
[2025-11-01 10:43] LABS: AMPHETAMINE, URINE NEGATIVE (NEGATIVE); BARBITURATE, URINE NEGATIVE (NEGATIVE); BENZODIAZEPINE, URINE NEGATIVE (NEGATIVE); CANNABINOID, URINE NEGATIVE (NEGATIVE); COCCAINE, URINE NEGATIVE (NEGATIVE); OPIATE, URINE NEGATIVE (NEGATIVE)
[2025-11-01 10:52] LABS: ALCOHOL, BLOOD < 3 mg/dL (0-10); ASPARTATE AMINOTRANSFERASE 18 U/L (15-37); CALCIUM, SERUM 8.7 mg/dL (8.5-10.1); CREATININE 0.8 mg/dL (0.6-1.3); SODIUM SERUM 142 mmol/L (136-145); TOTAL PROTEIN, SERUM 7.7 g/dL (6.4-8.2); UREA NITROGEN, BLOOD 18 mg/dL (7-18)
[2025-11-01 11:40] LABS: ADD URINE CULTURE YES
[2025-11-01 11:41] LABS: SQUAMOUS EPITHELIAL CELL,UR Moderate /HPF (None Seen)
[2025-11-01 15:06] VITALS: BP 142/74; TEMP 97.9; O2SAT 98
== END 2025-11-01 15:07 ==
LOC: ER 09:20
DX: F32.A Depression, unspecified (principal); F17.200 Nicotine dependence, unspecified, uncomplicated; G89.29 Other chronic pain; M19.90 Unspecified osteoarthritis, unspecified site; M79.7 Fibromyalgia; Z59.00 Homelessness unspecified; Z79.899 Other long term (current) drug therapy; Z99.3 Dependence on wheelchair
CPT/HCPCS: 36415; 80048-TC; 80076-TC; 81001; 85025-TC; 87086-TC; G0480